=== PATIENT | male | born 1945 | race Caucasian/White ===

== ENCOUNTER → 2018-01-13 06:06 | Outpatient (CLI) | payer MEDICARE, SELFPAY ==
--- NOTE | 2018-01-13 06:15 | NM_ITS ---
CARDIOLITE SPECT MYOCARDIAL PERFUSION SCAN, REST AND STRESS: EXERCISE STRESS [facility] REVIEW QGS EF AND WALL MOTION EVALUATION: QPS - PERFUSION EVALUATION HISTORY: Chest pain, SOB, CAD, CABG, HTN, DM DOSE: 10.54 mCi technetium 99m mibi intravenously at rest followed by 32.3 mCi technetium 99m mibi following the intravenous ministration of 0.4 mg of Lexiscan. Resting blood pressure is 191/108. Stress blood pressure 199/122. FINDINGS: Ejection fraction is calculated to be 27%. Stress images reveal decreased activity in the apex and inferior wall with no significant change during rest images. 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 Clinical correlation is advised. This is a high risk abnormal stress test
--- NOTE | 2018-01-13 07:10 | HMH.ITSHM ---
OMEPRAZOLE GLIMEPIRIDE ATORVASTATIN CYCLOBENZAPR POTASSIUM CLOPIDOGREL BUSPIRONE CARVEDILOL ASA COQ10 MIRALAX METAMUCIL VITAMINS
== END ==
PROVIDERS: Family Provider Nurse Practitioner Family; PCP Nurse Practitioner Family; Visit Provider Physician Assistant
DX: R07.9 Chest pain, unspecified (principal); I25.10 Atherosclerotic heart disease of native coronary artery without angina pectoris; I10 Essential (primary) hypertension
CPT/HCPCS: 78452; 93017; A9502; J2785

== ENCOUNTER → 2019-02-10 09:31 | Outpatient (CLI) | payer MEDICARE, SELFPAY ==
--- NOTE | 2019-02-10 09:36 | US_ITS ---
US Arterial Lower Ext Rest Ordering Physician: Mindi Guerrier APRN Patient Age: 73 years: Male HISTORY: Current smoker. Hyperlipidemia CAD weak pulses both legs. Bilateral Claudication with Skin color changes and rest pain bilateral . Diabetic previous angioplasty smoker. Hypertension. TECHNIQUE: Segmental pressures obtained of both right and left leg. These are compared to brachial blood pressure to yield index at each level sampled including summary ZARIA. The data sheets from the procedure are available in PACS FINDINGS Rest study only performed today No prior studies available for comparison. Blood pressures reported are in millimeters mercury. ====== RIGHT LEG ZARIA = 1.05. Right TBI = 0.75 Brachial BP: 153 Thigh BP: BP 147 index 0.96 BP Calf BP: 148 with index 0.97 Ankle PT: BP 160 with index 1.05 Ankle DP : BP 150 with index 0.98 Digit =BP 115 with index 0.75 ===== LEFT LEG ZARIA = 1.01 Left TBI = 0.8 Brachial BPD: 148 Thigh BP: BP 156 with index-1.02. Calf BP: BP 158 index 1.03 Ankle PT:BP 155 with index 1.01 Ankle DP: BP 152 with index 0.99 Digit = BP 122 with index 0.8 Normal Pulses and waveforms: Bilateral IMPRESSION: Normal bilateral ZARIA. Normal pulses and waveforms to the ankles bilaterally ====== RIGHT LEG ZARIA = 1.05. Right TBI = 0.75 ===== LEFT LEG ZARIA = 1.01 Left TBI = 0.8
== END ==
PROVIDERS: PCP Nurse Practitioner Family; Visit Provider Nurse Practitioner Family
DX: I70.213 Atherosclerosis of native arteries of extremities with intermittent claudication, bilateral legs (principal)
CPT/HCPCS: 93923

== ENCOUNTER → 2019-02-16 10:48 | Outpatient (POV) | payer MEDICARE, SELFPAY | PROVIDERS: Visit Provider Otolaryngology | DX: Z00.00 Encounter for general adult medical examination without abnormal findings (principal) ==

== ENCOUNTER → 2019-05-24 10:09 | Outpatient (CLI) | payer MEDICARE, SELFPAY ==
--- NOTE | 2019-05-24 10:16 | CT_ITS ---
[facility] insert PROCEDURE: CT CHEST WO/W CON CLINCAL INDICATION: PULMONARY NODULE Pulmonary nodule evaluation, abnormal abdomen CT showing pulmonary nodules in the lung base. COMPARISON: CT ABDOMEN PELVIS WO CON from 04/25/2019 TECHNIQUE: IV Contrast: 75ml Optiray 350 Axial images obtained with sagittal and coronal reformats. All CT scans at the facility use one or more dose reduction, viz: automated exposure control, ma/kV adjustment per patient size (including targeted exams where dose is matched to indication, i.e. head), or iterative reconstruction technique. FINDINGS: In the right upper lobe there is a 6 mm noncalcified nodule centrally slightly medial. There is mild diffuse bronchial thickening. In the right upper lobe posteriorly there are patchy areas of ground-glass density suspicious for areas of pneumonia. There are 2 fissural nodules once again noted along the major fissure centrally the largest at 5 mm. These are not significantly changed. These may be due to small lymph nodes. There are mild fibrotic changes in the lung apices. There is some patchy ground-glass density in the left infrahilar region. There are changes of COPD There has been a prior CABG. Coronary artery calcifications are present. No mediastinal or hilar mass or adenopathy is evident. There is a small hiatal hernia. There are degenerative changes in the thoracic spine. IMPRESSION: 1. Patchy areas of ground-glass density in the perihilar region on both sides right more extensive than left consistent with areas of pneumonia. 2. Hyperinflation with attenuation of the peripheral pulmonary vessels and bronchial thickening consistent with COPD 3. No change in the 2 fissural nodules on the right. There is a 6 mm noncalcified nodule in the right apex. Recommend six-month CT follow-up to confirm stability and assure resolution of the perihilar ground-glass opacities Dictated by: Sky Brownlee MD 05/25/2019 14:38 Electronically signed by Sky Brownlee MD in [place] 05/25/2019 14:38
== END ==
PROVIDERS: PCP Nurse Practitioner; Visit Provider Nurse Practitioner
DX: R91.1 Solitary pulmonary nodule (principal)
CPT/HCPCS: 71270; Q9967

== ENCOUNTER → 2020-01-17 12:23 | Outpatient (CLI) | payer MEDICARE, SELFPAY ==
--- NOTE | 2020-01-17 12:51 | XR_ITS ---
PROCEDURE: XR MULTIPLE SPINE 2-3V CLINICAL INDICATION: PAIN Back pain COMPARISON: No exams were available for comparison FINDINGS: Thoracic spine: Multilevel degenerative changes with ankylosis. No acute fracture or dislocation is evident. No lytic or blastic change. Lumbar spine five views: Inter pedicular screws are present at L5-S1 with prior fusion and disc spacer device noted. There is normal alignment. Degenerative disc disease is present at L4-5 and L5-S1. No acute fracture or dislocation is evident. No lytic or blastic change. Surgical clips are present in the right upper quadrant and there are surgical tacks in the left upper quadrant. There are degenerative changes of the hips. IMPRESSION: Spondylosis of the thoracic lumbar spine with postsurgical change of the lumbar spine Dictated by: Sky Brownlee MD 01/17/2020 13:27 Sky Brownlee MD in [facility] 01/17/2020 13:27
[2020-01-17 13:03] LABS: Blood Urea Nitrogen 14 mg/dl (9-20); Estimated Glomerular Filt Rate 95 ml/min (>60); GFR (African American) 115 ML/MIN (>60)
--- NOTE | 2020-01-17 14:00 | CT_ITS ---
PROCEDURE: CT CHEST WO/W CON CLINCAL INDICATION: SOLITARY PULMONARY NODULE Follow-up pulmonary nodule COMPARISON: CT CHEST WO/W CON from 05/24/2019 TECHNIQUE: IV Contrast: 75ml Optiray 350 Axial images obtained with sagittal and coronal reformats. All CT scans at the facility use one or more dose reduction, viz: automated exposure control, ma/kV adjustment per patient size (including targeted exams where dose is matched to indication, i.e. head), or iterative reconstruction technique. FINDINGS: HEART AND MEDIASTINAL STRUCTURES: Prior CABG. No mediastinal or hilar mass or adenopathy. There is extensive coronary artery calcification. No evidence of aortic aneurysm or dissection or central pulmonary embolus. LUNGS AND PLEURAL SPACES: Changes of COPD. Stable 5 mm right apical nodule. Stable right-sided fissural nodules in the major fissure. The right upper lobe perihilar ground-glass attenuation has improved. There is some mild atelectatic change in the lung bases.. A 4 mm noncalcified nodules present in the left lower lobe unchanged. Left-sided perihilar nodular infiltrate as improved. No new nodules are evident BONY STRUCTURES: Unremarkable. Degenerative changes thoracic spine. UPPER ABDOMEN: Unremarkable. ADDITIONAL FINDINGS: No other significant abnormalities. IMPRESSION: 1. No change in the small pulmonary nodules as previously described. No new nodules evident. 2. Improvement in the perihilar ground-glass density on the right and the left-sided perihilar nodular infiltrate. 3. COPD with extensive coronary artery calcification Dictated by: Sky Brownlee MD 01/18/2020 11:44 Electronically signed by Sky Brownlee MD in [facility] 01/18/2020 11:44
== END ==
LOC: RAD 12:25
PROVIDERS: PCP Nurse Practitioner; Visit Provider Nurse Practitioner
DX: R91.1 Solitary pulmonary nodule (principal); M54.5 Low back pain; M54.6 Pain in thoracic spine
CPT/HCPCS: 36415; 71270; 72082; 72084; 82565; 84520; Q9967

== ENCOUNTER 2020-07-03 00:35 | Emergency (ER) | payer MEDICARE, SELFPAY ==
[2020-07-03 00:55] VITALS: BP 151/77; PULSE 63; RESP 18; TEMP 36.6; O2SAT 98; BMI 35.3
--- NOTE | 2020-07-03 01:05 | CT_ITS ---
PROCEDURE: CT ABDOMEN PELVIS WO CON CLINICAL INDICATION: left flank pain Left flank pain COMPARISON: CT CT ABDOMEN PELVIS WO CON from 04/25/2019 TECHNIQUE: Axial images obtained with sagittal and coronal reformats. All CT scans at the facility use one or more dose reduction, viz: automated exposure control, ma/kV adjustment per patient size (including targeted exams where dose is matched to indication, i.e. head), or iterative reconstruction technique. FINDINGS: LOWER THORAX: Atelectatic and/or fibrotic changes noted in the lung bases. Coronary artery calcifications are present. ABDOMEN & PELVIS: There has been a prior cholecystectomy. The spleen and adrenal glands and pancreas are unremarkable. There are punctate bilateral renal calculi. No hydronephrosis. No ureteral calculi. There is an exophytic I so density projecting off the posterior aspect of the left kidney measuring 1.8 cm consistent with a renal cyst not significantly changed. There are postsurgical changes of the anterior abdominal wall with multiple clips present. There is a mild amount of retained colonic feces. No evidence of appendicitis or diverticulitis. The prostate is enlarged at 5 cm causing some indentation upon the bladder wall inferiorly There postsurgical changes at the lumbosacral junction with inter pedicular screws. There is a mild amount of retained colonic feces IMPRESSION: 1. Nonobstructing bilateral renal calculi. 2. Mild amount of retained colonic feces Dictated by: Sky Brownlee MD 07/03/2020 11:35 Sky Brownlee MD in [place] 07/03/2020 11:35
[2020-07-03 01:11] LABS: Basophils # 0.1 K/mm3 (0-0.2); Basophils % 0.6 % (0.1-2.0); Eosinophils # 0.3 K/mm3 (0.0-0.4); Eosinophils % 2.6 % (0.1-12.0); Hematocrit 46.3 % (42.0-52.0); Hemoglobin 14.9 g/dL (14.1-18.0); Lymphocytes # 4.5 K/mm3 (0.7-4.5); Lymphocytes % 39.9 % (10-50); Mean Corpuscular HGB Conc 32.1 g/dL (31.8-35.4); Mean Corpuscular Hemoglobin 30.6 pg (27.0-31.2); Mean Corpuscular Volume 95.2 fl (80-94); Mean Platelet Volume 8.6 fl (7.4-10.4); Monocytes # 0.6 K/mm3 (0.1-1.0); Monocytes % 5.3 % (1.7-9.3); Neutrophils # 5.7 K/mm3 (1.8-7.8); Neutrophils % 51.6 % (37.0-80.0); Platelet Count 198 K/mm3 (142-424); Red Blood Count 4.87 M/mm3 (4.60-6.20); Red Cell Distribution Width 14.2 % (11.5-17.5); White Blood Count 11.1 K/mm3 (4.8-10.8)
[2020-07-03 01:22] LABS: Alanine Aminotransferase 15 U/L (12-78); Albumin Level 4.3 g/dl (3.5-5.0); Albumin/Globulin Ratio 1.5 (1.1-1.8); Alkaline Phosphatase 38 U/L (38-126); Anion Gap 10.9 mEq/L (5-15); Aspartate Amino Transferase 20 U/L (17-59); Bilirubin,Total 0.3 mg/dl (0.2-1.3); Blood Urea Nitrogen 20 mg/dl (9-20); Calcium 9.9 mg/dl (8.4-10.2); Carbon Dioxide 30 mmol/L (22.0-30.0); Chloride 106 mmol/L (98-107); Creatinine Clearance Estimated 75 mL/min (50-200); Estimated Glomerular Filt Rate 73 ml/min (>60); GFR (African American) 88 ML/MIN (>60); Globulin 2.8 g/dL (1.3-3.2); Glucose 114 mg/dl (74-100); Potassium 3.9 mmoL/L (3.5-5.1); Sodium 143 mmol/L (136-145); Total Protein,Serum 7.1 g/dl (6.3-8.2)
--- NOTE | 2020-07-03 02:22 | HMH.EDGENADL ---
ED Disposition Clinical Impression: Renal lithiasis Disposition: Home, Self-Care Condition on Discharge: Good Referrals: Shai Hayes MD [Primary Care Provider] - - Critical Care Critical Care Time: No Attestation: On 07/03/20, the high probability of a clinically significant, sudden or life threatening deterioration of the following system(s) required my full and direct attention, intervention and personal management. The time I documented below is in addition to time spent performing reported procedures but includes the following listed in this critical care notation. Medical Decision Making - Rodrigo Inquiry Pt receiving controlled substance: No Vital Signs: 07/03/20 00:55 Temperature 97.8 F Temperature Source Oral Pulse Rate [Right] 63 Respiratory Rate 18 Blood Pressure [Left Arm] 151/77 H Blood Pressure Mean [Left Arm] 101 Blood Pressure Source [Left Arm] Automatic Cuff Blood Pressure Position [Left Arm] Sitting 02 Sat by Pulse Oximetry 98 Oxygen Delivery Method Room Air - Lab Data Lab Results 07/03/20 00:55: WBC 11.1 H, RBC 4.87, Hgb 14.9, Hct 46.3, MCV 95.2 H, MCH 30.6, MCHC 32.1, RDW 14.2, Plt Count 198, MPV 8.6, Neut % (Auto) 51.6, Lymph % (Auto) 39.9, [place] % (Auto) 5.3, Eos % (Auto) 2.6, Baso % (Auto) 0.6, Neut # (Auto) 5.7, Lymph # (Auto) 4.5, [place] # (Auto) 0.6, Eos # (Auto) 0.3, Baso # (Auto) 0.1 07/03/20 00:55: Sodium 143, Potassium 3.9, Chloride 106, Carbon Dioxide 30, Anion Gap 10.9, BUN 20, Creatinine 1.00, Estimated Creat Clear 75, Estimated GFR 73, Est GFR ( Amer) 88, Glucose 114 H, Calcium 9.9, Total Bilirubin 0.3, AST 20, ALT 15, Alkaline Phosphatase 38, Total Protein 7.1, Albumin 4.3, Globulin 2.8, Albumin/Globulin Ratio 1.5 07/03/20 02:30: Urine Color Yellow, Urine Appearance Clear, Urine pH 5.5, Ur Specific [place] 1.025, Urine Protein Negative, Urine Glucose (UA) 1+, Urine Ketones Negative, Urine Blood Negative, Urine Nitrate Negative, Urine Bilirubin Negative, Urine Urobilinogen 0.2, Ur Leukocyte Esterase Negative, Urine WBC Occasional, Amorphous Sediment Trace, Urine Mucus Trace Result diagrams: 07/03/20 00:55 07/03/20 00:55 Orders (Tests/Meds): ED MEDICATIONS Generic Name Dose Route Start Last Admin Trade Name Freq PRN Reason Stop Dose Admin Sodium Chloride 1,000 mls @ 999 mls/hr 07/03/20 01:15 07/03/20 01:21 Sod Chlor 0.9% 1000ml Bag IV 07/03/20 02:15 999 mls/hr .Q1H1M KITTY Administration Discontinued Medications Generic Name Dose Route Start Last Admin Trade Name Freq PRN Reason Stop Dose Admin Ketorolac Tromethamine 15 mg 07/03/20 01:05 07/03/20 01:21 Ketorolac 30mg/Ml Vial IV 07/03/20 01:06 15 mg ONCE ONE Administration Ondansetron HCl 4 mg 07/03/20 01:05 07/03/20 01:21 Ondansetron 4mg/2ml Vial IV 07/03/20 01:06 4 mg ONCE ONE Administration ORDERS Category Date Time Status CT abdomen pelvis wo con Stat Cat Scan 07/03/20 01:05 Taken - CT Data CT Scan: Abdomen Time Received: 01:[address] Reviewed: Yes: I have reviewed the patient's CT results, I have viewed the radiologist's interpretation Preliminary Findings: Abnormal Findings Narrative: Multiple small renal stones bilaterally. No evidence of hydronephrosis - Reevaluation(s) Time: 02:15 Reevaluation #1: Pt symptoms significantly improved and ready for discharge pending UA. Medical Decision Narrative: 75-year-old male with a history of renal lithiasis who presents with left flank pain times several days that is intermittent and colicky in nature became more severe this evening. No red flag symptoms concerning for vascular pathology and with a history of renal lithiasis is consistent with previous events he will be evaluated with a CT noncontrast of the abdomen pelvis as well as urinalysis. Patient was given IV Toradol 15 mg and IV fluid bolus 1 L with IV Zofran 4 mg for nausea. Multiple bilateral punctate stones. Demonstrates no evidence of in
[2020-07-03 02:33] LABS: Microscopic, Urine URINE MICROSCOPIC (MICROSCOPIC)
[2020-07-03 02:34] LABS: Appearance,Urine CLEAR (Clear); Bilirubin,Urine Negative (Negative); Blood, Urine Negative (Negative); Color,Urine YELLOW (Yellow); Glucose,Urine (UA) 1+ (Negative); Ketones,Urine Negative (Negative); Leukocyte Esterase,Urine Negative (Negative); Nitrate,Urine Negative (Negative); PH,Urine 5.5 (5.0-8.5); Protein,Urine Negative (Negative); Specific Gravity, Urine 1.025 (1.005-1.030); Urobilinogen,Urine 0.2 EU/dl (0.2)
[2020-07-03 02:39] LABS: Amorphous Sediment,Urine Trace /lpf; Mucus,Urine Trace /lpf; WBC,Urine Occasional #/hpf (0-3)
[2020-07-03 02:54] VITALS: BP 167/77; PULSE 59; RESP 18; TEMP 36.6; O2SAT 98
== END 2020-07-03 02:56 | disposition home or self-care (01) ==
PROVIDERS: Emergency Provider Student in an Organized Health Care Education/Training Program; PCP Internal Medicine Adolescent Medicine
DX: N20.0 Calculus of kidney (principal); Z87.442 Personal history of urinary calculi; I25.10 Atherosclerotic heart disease of native coronary artery without angina pectoris; F33.1 Major depressive disorder, recurrent, moderate; E78.5 Hyperlipidemia, unspecified; K21.9 Gastro-esophageal reflux disease without esophagitis; E11.9 Type 2 diabetes mellitus without complications; Z88.0 Allergy status to penicillin; Z79.899 Other long term (current) drug therapy
CPT/HCPCS: 74176; 80053; 81001; 85025; 96365; 96375; 99283; J2405

== ENCOUNTER → 2020-11-04 11:44 | Outpatient (CLI) | payer MEDICARE, SELFPAY ==
--- NOTE | 2020-11-04 | XR_ITS ---
PROCEDURE: XR LUMBAR SPINE 2-3V CLINICAL INDICATION: LOW BACK PAIN COMPARISON: No exams were available for comparison FINDINGS: Normal alignment. No acute fracture or dislocation. There is mild degenerative disc disease at L4-5. Postsurgical changes are present L5-S1 with inter pedicular screws and connecting rods. Small anterior osteophytes at L3. There is degenerative changes in the lower thoracic spine and thoracolumbar junction. No lytic or blastic change IMPRESSION: Degenerative and postsurgical changes Dictated by: Sky Brownlee MD 11/04/2020 13:29 Sky Brownlee MD in [place] 11/04/2020 13:29
--- NOTE | 2020-11-04 | XR_ITS ---
PROCEDURE: XR HIP RT 2-3V W/PELVIS CLINICAL INDICATION: RIGHT HIP PAIN COMPARISON: No exams were available for comparison FINDINGS: Mild to moderate osteoarthritic changes are present involving both hips as seen on the AP view of the pelvis. No acute fracture or dislocation. No lytic or blastic change. IMPRESSION: [id number] osteoarthritis of the hips Dictated by: Sky Brownlee MD 11/04/2020 13:28 Sky Brownlee MD in [facility] 11/04/2020 13:28
== END ==
PROVIDERS: PCP Nurse Practitioner; Referring Provider Nurse Practitioner; Visit Provider Nurse Practitioner
DX: M54.5 Low back pain (principal); M25.551 Pain in right hip
CPT/HCPCS: 72100; 73502

== ENCOUNTER 2020-11-13 15:00 | Outpatient (RCR) | payer MEDICARE, SELFPAY | END 2020-12-14 13:30 | disposition home or self-care (01) | LOC: PT.CARL 15:00 | PROVIDERS: PCP Nurse Practitioner; Visit Provider Nurse Practitioner | DX: M25.551 Pain in right hip (principal) | CPT/HCPCS: 97110; 97140; 97163 ==

== ENCOUNTER 2020-11-14 16:10 | Emergency (ER) | payer MEDICARE, SELFPAY ==
[2020-11-14 16:13] VITALS: BP 157/86; PULSE 69; RESP 18; TEMP 37; O2SAT 97; BMI 30.2
--- NOTE | 2020-11-14 16:30 | HMH.EDBACK ---
ED Disposition Clinical Impression: Sciatica Qualifiers: Laterality: right Qualified Code(s): M54.31 - Sciatica, right side Disposition: Home, Self-Care Condition on Discharge: Good Instructions: DI for Low Back Pain, DI for Back Pain With Sciatica Additional Instructions: Please follow-up with your primary care provider and discuss the possible need for an MRI of your lower back to rule out sciatica/bulging disc in your back. Prescriptions: Hydrocod/Acet 5/325 mg [[place] 5/325mg tablet] 1 tab PO Q6HP PRN #15 tab PRN Reason: As Needed For Fever Or Pain Prescription Printed Referrals: Shai Hayes MD [Primary Care Provider] - - Critical Care Critical Care Time: No Attestation: On 11/14/20, the high probability of a clinically significant, sudden or life threatening deterioration of the following system(s) required my full and direct attention, intervention and personal management. The time I documented below is in addition to time spent performing reported procedures but includes the following listed in this critical care notation. Medical Decision Making - Rodrigo Inquiry Pt receiving controlled substance: Yes Rodrigo was queried for this patient: Yes Risks and benefits of using a controlled substance: were discussed with pt by me Vital Signs: 11/14/20 16:13 11/14/20 17:41 Temperature 98.6 F 98.5 F Temperature Source Oral Oral Pulse Rate 75 Pulse Rate [Left Radial] 69 Respiratory Rate 18 16 Blood Pressure 137/76 Blood Pressure [Right Arm] 157/86 H Blood Pressure Mean [Right Arm] 109 Blood Pressure Source Automatic Cuff Blood Pressure Source [Right Arm] Automatic Cuff Blood Pressure Position Supine Blood Pressure Position [Right Arm] Sitting 02 Sat by Pulse Oximetry 97 Oxygen Delivery Method Room Air Room Air - Lab Data Lab results reviewed: No: I reviewed the patient's lab results. Orders (Tests/Meds): ED MEDICATIONS Discontinued Medications Generic Name Dose Route Start Last Admin Trade Name Freq PRN Reason Stop Dose Admin Ketorolac Tromethamine 60 mg 11/14/20 16:44 11/14/20 17:09 Ketorolac 60mg/2ml Vial IM 11/14/20 16:45 60 mg ONCE ONE Administration - Reevaluation(s) Time: 17:28 (Patient symptoms improved with Toradol. He feels better. He is ready for discharge.) Medical Decision Narrative: Emergency department by a local physician web assistant who saw the patient earlier today. The patient is complaining of low back pain radiating to the posterior upper right thigh. He has had this pain for several weeks now. According to the patient, the physician's web assistant was worried about a blood clot which prompted her to send the patient to the emergency department for evaluation. On physical examination the patient has no signs of deep venous thrombosis. His well score is low. The patient has no calf tenderness. His exam is consistent with acute to subacute sciatica on the right side. I do not believe that the patient requires a imaging or blood work/laboratory work-up. The patient will be given Toradol for pain management in the emergency department. Advised him and his that he will require an outpatient MRI of the lumbar spine to be performed by his primary care provider and depending on the results of that the patient may have to follow-up with a neurosurgeon. The patient's physical exam did not suggest any ischemic disease. The patient will be discharged in stable condition with instructions to follow-up with his primary care physician. He will be prescribed 15 tablets of acetaminophen/hydrocodone. Back Pain HPI - General Chief Complaint: Back Pain/Injury Stated Complaint: Possible in Blood Clot L Upper leg Area Time Seen by Provider: 11/14/20 16:31 Mode of Arrival: Ambulatory Source of Information: Patient, Spouse Limitations: No Limitations - History of Present Illness Complaint: back pain Duration: constant Similar Symptoms Previou
[2020-11-14 17:41] VITALS: BP 137/76; PULSE 75; RESP 16; TEMP 36.9; O2SAT 97
== END 2020-11-14 17:41 | disposition home or self-care (01) ==
PROVIDERS: Emergency Provider Emergency Medicine; PCP Internal Medicine Adolescent Medicine
DX: M54.31 Sciatica, right side (principal); I25.10 Atherosclerotic heart disease of native coronary artery without angina pectoris; E11.9 Type 2 diabetes mellitus without complications; K21.9 Gastro-esophageal reflux disease without esophagitis; Z87.442 Personal history of urinary calculi; I10 Essential (primary) hypertension; Z86.711 Personal history of pulmonary embolism; F17.210 Nicotine dependence, cigarettes, uncomplicated
CPT/HCPCS: 96372; 99281

== ENCOUNTER → 2020-11-16 15:01 | Outpatient (CLI) | payer MEDICARE, SELFPAY ==
--- NOTE | 2020-11-16 15:12 | MR_ITS ---
PROCEDURE: MR HIP RT WO/W CON CLINICAL INDICATION: PAIN IN RIGHT HIP COMPARISON: No exams were available for comparison TECHNIQUE: Routine multiplanar multi echo sequences are performed without gadolinium enhancement. FINDINGS: Bone marrow signal intensity is within normal limits without evidence of marrow infiltrative process. No acute fractures. Minor joint L joint space loss is noted. The vastus, hamstrings, gluteus, and and adductor muscles demonstrate no focal abnormality. Non arthrographic images of the labrum demonstrate intact labrum. Early osteophyte formation is noted. The visualized pelvic structures are within normal limits. IMPRESSION: Early degenerative changes of the right hip joint. No acute abnormality. Dictated by: Padmaja Enrique 11/16/2020 17:33 Padmaja Enrique in [place] 11/16/2020 17:33
== END ==
PROVIDERS: PCP Internal Medicine Adolescent Medicine; Visit Provider Nurse Practitioner
DX: M25.551 Pain in right hip (principal)
CPT/HCPCS: 73723; A9576

== ENCOUNTER → 2020-12-01 11:36 | Outpatient (CLI) | payer MEDICARE, SELFPAY ==
[2020-12-01 14:38] LABS: Blood Urea Nitrogen 34 mg/dl (9-20)
[2020-12-01 14:39] LABS: Estimated Glomerular Filt Rate 82 ml/min (>60); GFR (African American) 100 ML/MIN (>60)
== END ==
PROVIDERS: Visit Provider Nurse Practitioner
DX: Z01.812 Encounter for preprocedural laboratory examination (principal)
CPT/HCPCS: 36415; 82565; 84520

== ENCOUNTER → 2020-12-04 09:09 | Outpatient (CLI) | payer MEDICARE, SELFPAY ==
--- NOTE | 2020-12-04 09:13 | MR_ITS ---
PROCEDURE: MR LUMBAR SPINE WO/W CON CLINICAL INDICATION: LOW BACK PAIN Lbp with rt hip pain. Rt leg pain, numbness, and tingling [id number]. Hx lumbar surgery in 2007. COMPARISON: MR [employer]/O MRI-L-SPINE W/O from 07/26/[address] ABDOMEN PELVIS WO CON from 07/03/2020 CR XR LUMBAR SPINE 2-3V from 11/04/2020 TECHNIQUE: Standard multiplanar multiecho sequences are performed without and with contrast. 3-D MIP and myelographic images are also rendered and reviewed FINDINGS: There is normal alignment. Spinal cord ends at the L1 level. L1-L2: Unremarkable. L2-L3: Minimal bulging disc laterally on both sides with mild facet and ligamentum hypertrophy with mild bilateral lateral recess and foraminal narrowing. L3-L4: Mild concentric bulging disc with moderate facet and ligamentum hypertrophy. The facet and ligamentum hypertrophy has progressed since the previous exam of 07/26/2015. There is moderate to severe bilateral lateral recess narrowing right greater than left with bilateral foraminal narrowing left greater than right. The L4-5: Concentric bulging disc with severe facet and ligamentum hypertrophy with bilateral lateral recess narrowing and moderate bilateral foraminal narrowing left greater than right. The bulging disc does abut the L5 nerve roots on both sides. The facet and ligamentum hypertrophy has progressed since the previous exam. Canal stenosis is present at this level at 10 mm. There is some minimal epidural enhancement centrally and in the right paracentral area suggesting mild epidural fibrosis abutting the right L5 nerve root. L5-S1: Postsurgical changes with inter pedicular screws with generous artifact. Disc spacer device present at this level. There does appear to be severe left-sided foraminal narrowing from facet and ligamentum hypertrophy with impingement upon the exiting left L5 nerve root. This may have progressed somewhat since the previous exam. There is some mild enhancement of the disc along superior and inferior aspect at this level. IMPRESSION: 1. L2-L3: Minimal bulging disc laterally on both sides with mild facet and ligamentum hypertrophy with mild bilateral lateral recess and foraminal narrowing. 2. L3-L4: Mild concentric bulging disc with moderate facet and ligamentum hypertrophy. The facet and ligamentum hypertrophy has progressed since the previous exam of 07/26/2015. There is moderate to severe bilateral lateral recess narrowing right greater than left with bilateral foraminal narrowing left greater than right. 3. L4-5: Concentric bulging disc with severe facet and ligamentum hypertrophy with bilateral lateral recess narrowing and moderate bilateral foraminal narrowing left greater than right. The bulging disc does abut the L5 nerve roots on both sides. The facet and ligamentum hypertrophy has progressed since the previous exam. Canal stenosis is present at this level at 10 mm. There is some minimal epidural enhancement centrally and in the right paracentral area suggesting mild epidural fibrosis abutting the right L5 nerve root. 4. L5-S1: Postsurgical changes with inter pedicular screws with generous artifact. Disc spacer device present at this level. There does appear to be severe left-sided foraminal narrowing from facet and ligamentum hypertrophy with impingement upon the exiting left L5 nerve root. This may have progressed somewhat since the previous exam. There is some mild enhancement of the disc along superior and inferior aspect at this level. 5. No extruded herniated disc. Dictated by: Sky Brownlee MD 12/06/2020 09:43 Sky Brownlee MD in [place] 12/06/2020 09:43
== END ==
PROVIDERS: PCP Internal Medicine Adolescent Medicine; Visit Provider Nurse Practitioner
DX: M54.5 Low back pain (principal)
CPT/HCPCS: 72158; 76376; A9576

== ENCOUNTER → 2021-02-12 12:33 | Outpatient (CLI) | payer MEDICARE, SELFPAY ==
--- NOTE | 2021-02-12 12:37 | XR_ITS ---
PROCEDURE: XR CHEST 2V CLINICAL HISTORY: CARDIOVASCULAR EXAMINATION Chest pain COMPARISON: CR CXR1 CHEST-PORTABLE from 08/09/[address] CHEST WO/W CON from 01/17/2020 FINDINGS: Prior CABG. COPD. Coronary artery calcification. No lobar consolidation or collapse. There is ankylosis of the thoracic spine. No evidence pneumoperitoneum. IMPRESSION: COPD. No acute finding. Dictated by: Sky Brownlee MD 02/12/2021 17:37 Sky Brownlee MD in [place] 02/12/2021 17:37
--- NOTE | 2021-02-12 12:39 | XR_ITS ---
PROCEDURE: XR ABDOMEN MIN 2V CLINICAL INDICATION: CONSTIPATION,UNSPECIFIED COMPARISON: No exams were available for comparison FINDINGS: Mildly distended small bowel loops are present with scattered air-fluid levels with only a little amount of large bowel gas. Small-bowel obstruction is considered. Ileus would be included in the differential diagnosis. There are scattered opacities in the abdomen which may be due to ingested medication 2 in the right upper quadrant and 1 in the right lower quadrant. Numerous surgical tacks are present and there clips in the right upper quadrant. There has been prior lumbar surgery. The right hemidiaphragm is incompletely imaged on the upright view. Therefore, 1 cannot completely exclude the possibility of a pneumoperitoneum. IMPRESSION: Scattered air-fluid levels with mildly distended small bowel. Small bowel obstruction or ileus is considered. Follow-up suggested. Dictated by: Sky Brownlee MD 02/12/2021 17:35 Sky Brownlee MD in [facility] 02/12/2021 17:35
== END ==
PROVIDERS: PCP Nurse Practitioner; Visit Provider Nurse Practitioner
DX: K59.00 Constipation, unspecified (principal)
CPT/HCPCS: 71046; 74019

== ENCOUNTER 2021-02-12 18:55 | Inpatient (IN) | payer MEDICARE, SELFPAY ==
[2021-02-12 19:08] VITALS: BP 144/92; PULSE 97; RESP 16; TEMP 36.8; O2SAT 96; BMI 29.7
--- NOTE | 2021-02-12 19:28 | CT_ITS ---
PROCEDURE INFORMATION: Exam: CT Abdomen And Pelvis Without Contrast Exam date and time: 02/12/2021 7:28 PM Age: 75 years old Clinical indication: Abdominal pain; Other: Upper quad; Prior surgery; Surgery date: 6+ months; Surgery type: Gb turp; Patient HX: Upper abdomen pain. Xrays today suggest possible bowel obstruction; Additional info: Upper abd pain TECHNIQUE: Imaging protocol: Computed tomography of the abdomen and pelvis without contrast. Total images: 304 Radiation optimization: All CT scans at this facility use at least one of these dose optimization techniques: automated exposure control; mA and/or kV adjustment per patient size (includes targeted exams where dose is matched to clinical indication); or iterative reconstruction. COMPARISON: CT ABDOMEN PELVIS WO CON 07/03/2020 1:18 AM FINDINGS: Lungs: Patchy scarring or atelectasis in the lung bases. Heart: Heart size normal. Severe coronary artery calcification in the RCA distribution. Liver: Normal contour. No mass lesions. No intrahepatic biliary ductal dilatation. Gallbladder and bile ducts: Prior cholecystectomy with expected mild postoperative dilatation of the common bile duct. This is unchanged. Pancreas: Mild pancreatic atrophy. There are few scattered punctate pancreatic calcifications suggesting chronic changes of prior pancreatitis. No evidence of acute pancreatitis. No ductal dilatation. Spleen: Normal. No splenomegaly. Adrenal glands: Normal. No adrenal mass. Kidneys and ureters: No acute abnormalities. No hydronephrosis or hydroureter. There are 2 small 1-2 mm nonobstructive left renal stones. No ureteral stones.There is a low-density circumscribed left renal cortical lesion suggesting renal cyst. No further imaging evaluation is required. Stomach and bowel: Prior fundoplication noted. Visualized distal esophagus otherwise unremarkable. The stomach is moderately distended with fluid but otherwise unremarkable. Moderate fluid distension of the duodenum, jejunum, and proximal ileum, consistent with small bowel obstruction, with the transition point identified in the left upper quadrant on series 3, images 38-48. No evidence of perforation or abscess. Moderate local mesenteric edema. The colon is contracted without gross abnormality. Appendix: The appendix is normal in caliber and demonstrates no evidence of appendicitis. Intraperitoneal space: Small volume reactive ascites in the pelvis. No free air. Vasculature: Moderate calcific atherosclerosis. Lymph nodes: No adenopathy. Urinary bladder: Unremarkable as visualized. Reproductive: Moderately enlarged prostate. Bones/joints: No acute osseous abnormalities. Prior lumbar fusion L5-S1 without gross hardware complication or change. Moderate central canal stenosis L4-L5. Soft tissues: Prior epigastric anterior abdominal wall hernia repair without gross complication or change. Small fatty left inguinal hernia with no associated bowel herniation or evidence of strangulation.. IMPRESSION: 1. There is evidence of high-grade small bowel obstruction with the transition point located in the left upper quadrant. No evidence of perforation or abscess. 2. Nonobstructive left renal stones. No ureteral stones or hydronephrosis. 3. Small volume reactive ascites in the pelvis. 4. Additional non-emergent findings detailed above. COMMENTS: Consistent with the [employer]'s Incidental Findings Committee white paper (J Am Eric Radiol 2018): Any incidental renal lesion less than 1 cm or classified as too small to characterize, or any incidental cystic renal lesion characterized as simple-appearing, is li
[2021-02-12 19:47] LABS: Chloride 98 mmol/L (98-107); Potassium 4.4 mmoL/L (3.5-5.1); Sodium 139 mmol/L (136-145)
[2021-02-12 19:49] LABS: Amylase 42 U/L (30-110)
[2021-02-12 19:50] LABS: Alanine Aminotransferase 21 U/L (12-78); Albumin Level 4.8 g/dl (3.5-5.0); Albumin/Globulin Ratio 1.5 (1.1-1.8); Alkaline Phosphatase 59 U/L (38-126); Anion Gap 18.4 mEq/L (5-15); Aspartate Amino Transferase 28 U/L (17-59); Bilirubin,Total 1.1 mg/dl (0.2-1.3); Blood Urea Nitrogen 47 mg/dl (9-20); Calcium 10.1 mg/dl (8.4-10.2); Carbon Dioxide 27 mmol/L (22.0-30.0); Creatinine Clearance Estimated 39 mL/min (50-200); Estimated Glomerular Filt Rate 35 ml/min (>60); GFR (African American) 42 ML/MIN (>60); Globulin 3.1 g/dL (1.3-3.2); Glucose 215 mg/dl (74-100); Lipase 42 U/L (23-300); Total Protein,Serum 7.9 g/dl (6.3-8.2)
[2021-02-12 19:51] LABS: Lactic Acid 1.7 mmol/L (0.7-2.1)
--- NOTE | 2021-02-12 20:21 | HMH.EDNVD ---
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 The time I documented below is in addition to time spent performing reported procedures but includes the following listed in this critical care notation. Medical Decision Making - Medical Records Medical records reviewed: Yes: I reviewed the patient's medical records. - Rodrigo Inquiry Pt receiving controlled substance: No Vital Signs: 02/12/21 19:08 Temperature 98.2 F Temperature Source Oral Pulse Rate [Right] 97 H Respiratory Rate 16 Blood Pressure [Right Arm] 144/92 H Blood Pressure Mean [Right Arm] 109 Blood Pressure Source [Right Arm] Automatic Cuff Blood Pressure Position [Right Arm] Supine 02 Sat by Pulse Oximetry 96 Oxygen Delivery Method Room Air - Lab Data Lab results reviewed: Yes: I reviewed the patient's lab results. Lab Results 02/12/21 19:27: WBC 14.0 H, RBC 5.30, Hgb 16.5, Hct 47.1, MCV 89.0, MCH 31.1, MCHC 34.9, RDW 13.9, Plt Count 246, MPV 8.8, Neut % (Auto) 80.1 H, Lymph % (Auto) 14.9, [place] % (Auto) 4.6, Eos % (Auto) 0.1, Baso % (Auto) 0.2, Neut # (Auto) 11.2 H, Lymph # (Auto) 2.1, [place] # (Auto) 0.7, Eos # (Auto) 0.0, Baso # (Auto) 0.0, ESR 14 02/12/21 19:27: Sodium 139, Potassium 4.4, Chloride 98, Carbon Dioxide 27, Anion Gap 18.4 H, BUN 47 H, Creatinine 1.90 H, Estimated Creat Clear 39, Estimated GFR 35 L, Est GFR ( Amer) 42 L, Glucose 215 H, Calcium 10.1, Total Bilirubin 1.1, AST 28, ALT 21, Alkaline Phosphatase 59, C-Reactive Protein 22.4 H, Total Protein 7.9, Albumin 4.8, Globulin 3.1, Albumin/Globulin Ratio 1.5, Amylase 42, Lipase 42, Procalcitonin 0.398 02/12/21 19:27: Lactate 1.7 Result diagrams: 02/12/21 19:27 02/12/21 19:27 Orders (Tests/Meds): ED MEDICATIONS Generic Name Dose Route Start Last Admin Trade Name Freq PRN Reason Stop Dose Admin Sodium Chloride 1,000 mls @ 999 mls/hr 02/12/21 19:30 02/12/21 19:34 Sod Chlor 0.9% 1000ml Bag IV 02/12/21 20:30 999 mls/hr .Q1H1M KITTY Administration Sodium Chloride 8 ml 02/12/21 19:28 Sodium Chloride 0.9% 10ml Vial IV 03/14/21 19:27 NEEDED PRN dilute pepcid Discontinued Medications Generic Name Dose Route Start Last Admin Trade Name Freq PRN Reason Stop Dose Admin Famotidine 20 mg 02/12/21 19:28 02/12/21 19:34 Famotidine 20mg/2ml Vial IV 02/12/21 19:29 20 mg ONCE ONE Administration Ketorolac Tromethamine 30 mg 02/12/21 19:28 02/12/21 19:34 Ketorolac 30mg/Ml Vial IV 02/12/21 19:29 30 mg ONCE ONE Administration Metoclopramide HCl 10 mg 02/12/21 19:28 02/12/21 19:34 Metoclopramide Hcl 10mg/2ml Vial IVP 02/12/21 19:29 10 mg ONCE ONE Administration Ondansetron HCl 4 mg 02/12/21 19:28 02/12/21 19:34 Ondansetron 4mg/2ml Vial IV 02/12/21 19:29 4 mg ONCE ONE Administration ORDERS Category Date Time Status Rapid PCR Covid and Flu A/B Stat Lab 02/12/21 21:49 Ordered Urinalysis and Microscopic Stat Lab 02/12/21 19:28 Ordered Blood Culture Stat Micro 02/12/21 19:27 Received - CT Data CT Scan: Abdomen, Pelvis Time Received: 22:[address] Reviewed: Yes: I have viewed the radiologist's interpretation Preliminary Findings: Abnormal (sbo) - Physician
[2021-02-12 20:25] LABS: Basophils % 0.2 % (0.1-2.0); Eosinophils % 0.1 % (0.1-12.0); Hematocrit 47.1 % (42.0-52.0); Hemoglobin 16.5 g/dL (14.1-18.0); Lymphocytes # 2.1 K/mm3 (0.7-4.5); Lymphocytes % 14.9 % (10-50); Mean Corpuscular HGB Conc 34.9 g/dL (31.8-35.4); Mean Corpuscular Hemoglobin 31.1 pg (27.0-31.2); Mean Platelet Volume 8.8 fl (7.4-10.4); Monocytes # 0.7 K/mm3 (0.1-1.0); Monocytes % 4.6 % (1.7-9.3); Neutrophils # 11.2 K/mm3 (1.8-7.8); Neutrophils % 80.1 % (37.0-80.0); Platelet Count 246 K/mm3 (142-424); Red Cell Distribution Width 13.9 % (11.5-17.5)
[2021-02-12 20:29] LABS: C-Reactive Protein 22.4 mg/L (0-4)
[2021-02-12 20:41] LABS: Procalcitonin 0.398 ng/mL (0.0-2.0)
[2021-02-12 21:13] LABS: Erythrocyte Sedimentation Rate 14 mm/hr (0-20)
[2021-02-12 21:57] LABS: Coronavirus 19, PCR Not Detected (NotDetected); Influenza A, PCR Not Detected (NotDetected); Influenza B, PCR Not Detected (NotDetected)
[2021-02-12 21:59] VITALS: BMI 29.0
--- NOTE | 2021-02-12 22:16 | ECG_ITS ---
APPROVED REPORT Exam: Resting ECG HR:75 bpm ECG Measurements Heart Rate 75 AXES HI 132 P 59 QRSd 92 QRS -36 QT 390 T 85 QTc 435 Conclusion Normal sinus rhythm Left axis deviation Incomplete right bundle branch block Abnormal ECG Electronically signed by : Alexandro Herrera, 02/13/2021 21:18:35
[2021-02-12 23:25] VITALS: BP 108/52; PULSE 86; RESP 16; TEMP 36.8; O2SAT 96
--- NOTE | 2021-02-12 23:31 | PC.NURSE ---
PT ARRIVED TO FLOOR VIA W/C FROM ED W/STAFF AT 2300
[2021-02-13] VITALS: BP 117/67; PULSE 90; RESP 18; TEMP 36.9; O2SAT 99
--- NOTE | 2021-02-13 03:37 | PC.NURSE ---
No acute changes noted since pt arrived to floor. He c/o discomfort to abdomen and headache. Morphine administered per oct. Pt is currently NPO for AM consult. VSS. Lungs are diminished. BS active. Abdomen is tender. Pt has not had BM. No other concerns. Will continue to monitor.
[2021-02-13 04:00] VITALS: BP 138/72; PULSE 88; RESP 18; TEMP 36.8; O2SAT 97
[2021-02-13 04:43] VITALS: BMI 29.2
[2021-02-13 06:00] LABS: POC Glucose,Bedside 117 (70-110)
--- NOTE | 2021-02-13 06:51 | PC.NURSE ---
DR BULLOCK NOTIFIED OF CONSULT
[2021-02-13 07:04] LABS: Basophils % 0.3 % (0.1-2.0); Eosinophils % 0.4 % (0.1-12.0); Hematocrit 42.4 % (42.0-52.0); Lymphocytes # 2.2 K/mm3 (0.7-4.5); Lymphocytes % 23.5 % (10-50); Mean Corpuscular HGB Conc 33.9 g/dL (31.8-35.4); Mean Corpuscular Hemoglobin 31.2 pg (27.0-31.2); Mean Corpuscular Volume 92.1 fl (80-94); Mean Platelet Volume 8.8 fl (7.4-10.4); Monocytes # 0.8 K/mm3 (0.1-1.0); Monocytes % 7.9 % (1.7-9.3); Neutrophils # 6.4 K/mm3 (1.8-7.8); Neutrophils % 67.8 % (37.0-80.0); Platelet Count 214 K/mm3 (142-424); Red Blood Count 4.61 M/mm3 (4.60-6.20); Red Cell Distribution Width 13.9 % (11.5-17.5); White Blood Count 9.4 K/mm3 (4.8-10.8)
[2021-02-13 07:06] LABS: Chloride 106 mmol/L (98-107); Potassium 4.1 mmoL/L (3.5-5.1); Sodium 141 mmol/L (136-145)
--- NOTE | 2021-02-13 07:07 | HMH.GSCON ---
*Admission Date: 02/13/21 *Reason for consult:: Bowel obstruction *History of present illness: Patient is a 75-year-old male from [place] with history of smoking/tobacco abuse, hypertension, diabetes mellitus, coronary disease with previous stenting, history of pulmonary embolism on Plavix who previously underwent laparoscopic cholecystectomy and has had apparent laparoscopic ventral hernia repair done in [place] sometime ago. He states that several days ago he developed some abdominal discomfort. He had pain in the left upper quadrant and right upper quadrant. He was unable to tolerate oral intake resulting in vomiting. He also describes several days of obstipation. He underwent outpatient CT scan which reportedly revealed findings of bowel obstruction. He therefore was asked to present to the emergency department. CT scan revealed findings consistent with partial high-grade obstruction with transition point in the left upper quadrant. He was admitted for inpatient management and surgical consultation this morning. Review of Systems - Review of Systems Review of systems:: pertinent systems reviewed and negative unless documented below - *Neurologic Denies confusion, Denies headache(s), Denies seizure-like activity [facility] History I have reviewed the patient's past medical history: Yes Medical History: Reports:: Atherosclerotic Heart Disease, Coronary Artery Disease, Depression, Diabetes Mellitus Type 2, Gastroesophageal Reflux Disease(GERD), Hyperlipidemia, Hypertension, Kidney Stones, Pulmonary Embolism Denies:: Diabetes Mellitus Type 1, Internal Pacemaker, Lung Disease, Seizures *Have you ever received a pneumonia vaccine?: No *Have you received a flu vaccine this season?: No Other Surgeries: Yes: Cardiac Catheterization, Cholecystectomy, Colonoscopy, Coronary Stent, Hernia Repair, Other. No: Pacemaker Amputation: Yes (pinky finger) Fractures: No - *Social History Smoking Status: Current every day smoker Tobacco Type: cigarettes # Packs/Day (cigarettes): 1 Alcohol Intake: former Substance Use Type: marijuana *Occupational Status:: retired Housing: house Household Members: spouse *Travel in the last 8 weeks: None - Psychiatric History Pschychiatric History:: Reports:: Depression Family Hx:: Bleeding Disorder, Cancer, Coronary Artery Disease, Diabetes, Hyperlipidemia, Hypertension, Alcoholism Meds Home Medications Medication Instructions Recorded Confirmed Type Buspirone HCl [Buspar 10mg 10 mg PO BID 02/19/19 02/12/21 History tablet] Glimepiride [Amaryl 2mg tablet] 2 mg PO DAILY 02/19/19 02/12/21 History Losartan Potassium [Cozaar] 50 mg PO DAILY 02/19/19 02/12/21 History carvediloL [Carvedilol 25mg Tab] 25 mg PO BID 02/26/19 02/12/21 History Albuterol Sulfate [Proventil-HFA 1 - 2 puffs IH Q4-6H PRN 07/03/20 02/12/21 History 90mcg/puff Inh] Fluticasone Propion/Salmeterol 1 puff IH DAILY 07/03/20 02/12/21 History [Fluticasone-Salmeterol 250-50] Pumpkin Seed Extract/Soy Germ [Azo 300 mg PO DAILY 07/03/20 02/12/21 History Bladder Control Capsule] Allergies Allergy/AdvReac Type Severity Reaction Status Date / Time erythromycin base Allergy Unknown S-DIFF. Verified 01/03/21 10:13 [From ERYTHROCIN] BREATHING Penicillins [PENICILLINS] Allergy Unknown I-RASH Verified 01/03/21 10:13 chocolate flavor Allergy Unknown Verified 01/03/21 10:13 allergy reaction corn Allergy Unknown Verified 01/03/21 10:13 allergy reaction Exam Vital signs and Labs for Last 24 Hours: Temp Pulse Resp BP Pulse Ox 98.2 F 88 18 138/72 97 02/13/21 04:00 02/13/21 04:00 02/13/21 04:00 02/13/21 04:00 02/13/21 04:00 Laboratory Results - last 24 hr 02/12/21 19:27: WBC 14.0 H, RBC 5.30, Hgb 16.5, Hct 47.1, MCV 89.0, MCH 31.1, MCHC 34.9, RDW 13.9, Plt Count 246, MPV 8.8, Neut % (Auto) 80.1 H, Lymph % (Auto) 14.9, Bee % (Auto) 4.6, Eos % (Auto) 0.1, Baso % (Auto) 0.2, Neut # (Auto) 11.
[2021-02-13 07:09] LABS: Anion Gap 15.1 mEq/L (5-15); Blood Urea Nitrogen 54 mg/dl (9-20); Calcium 9.1 mg/dl (8.4-10.2); Carbon Dioxide 24 mmol/L (22.0-30.0); Creatinine Clearance Estimated 38 mL/min (50-200); Estimated Glomerular Filt Rate 35 ml/min (>60); GFR (African American) 42 ML/MIN (>60); Glucose 133 mg/dl (74-100)
[2021-02-13 07:20] LABS: Hemoglobin 14.4 g/dL (14.1-18.0)
--- NOTE | 2021-02-13 07:27 | P.CONPHA_ITS ---
[facility] Pharmacy VTE Monitoring - Patient Demographics Admission date: 02/12/21 Report Date: 02/13/21 Time: 07:27 Allergies/Adverse Reactions: Patient Allergies erythromycin base [From ERYTHROCIN] Allergy (Unknown, Verified 01/03/21 10:13) S-DIFF. BREATHING Penicillins [PENICILLINS] Allergy (Unknown, Verified 01/03/21 10:13) I-RASH chocolate flavor Allergy (Verified 01/03/21 10:13) Unknown allergy reaction corn Allergy (Verified 01/03/21 10:13) Unknown allergy reaction Height: 1.65 m Weight: 79.605 kg Patient Problems: Current Active Problems Small bowel obstruction (Acute) NKECHI (acute kidney injury) (Acute) Diabetes mellitus (Acute) - VTE Risk Labs: VTE Related Lab Results Hgb 14.4 g/dL (14.1-18.0) D 02/13/21 06:31 Hct 42.4 % (42.0-52.0) 02/13/21 06:31 Plt Count 214 K/mm3 (142-424) 02/13/21 06:31 BUN 54 mg/dl (9-20) H 02/13/21 06:31 Creatinine 1.90 mg/dl (0.66-1.25) H 02/13/21 06:31 Estimated Creat Clear 38 mL/min (50-200) 02/13/21 06:31 VTE Risk Level: Moderate Risk - Prophylaxis VTE Prophylaxis Ordered?: Yes Types of VTE Prophylaxis: TEDS Knee High Location of Applied Device: Bilateral Lower Extremeties
[2021-02-13 07:59] VITALS: BP 126/82; PULSE 83; RESP 17; TEMP 36.6; O2SAT 92
[2021-02-13 08:00] VITALS: O2SAT 92
--- NOTE | 2021-02-13 09:17 | HMH.HP ---
*Admission Date: 02/12/21 <Laurie Quiros - 02/13/21 09:41> *Chief complaint: Abdominal pain with nausea and vomiting <Laurie Quiros - 02/13/21 09:41> *History of present illness: Mr Browne is a 75-year-old male from [place] with history of smoking/tobacco abuse, hypertension, diabetes mellitus, coronary disease with previous stenting, history of pulmonary embolism on Plavix who previously underwent laparoscopic cholecystectomy and has had apparent laparoscopic ventral hernia repair done in [place] sometime ago. He states that several days ago he developed some abdominal discomfort. He had pain in the left upper quadrant and right upper quadrant. He was unable to tolerate oral intake resulting in vomiting. He also describes several days of obstipation. He underwent outpatient CT scan which reportedly revealed findings of bowel obstruction. He therefore was asked to present to the emergency department. CT scan revealed findings consistent with partial high-grade obstruction with transition point in the left upper quadrant. He was admitted for inpatient management and surgical consultation this morning. The above per Dr. Corado This a.m. nursing is trying to place an NG tube. He has been nauseated through the night but has not vomited and remains n.p.o. He continues to have abdominal discomfort. He is passing no flatus. He does belch. He states he has had a diminished urinary output. His last stool was 02/09/2021. He denies melena, hematochezia and hematemesis. Patient states he had an office visit yesterday to schedule clearance for his upcoming right hip surgery. Due to his vomiting he had the CT scan. With the results he was directed to the emergency room for further evaluation. In the emergency room white blood cell count was found to be 14,000. He did have a bolus of fluids and was given Pepcid, Toradol, Reglan as well as Zofran. CT of the abdomen showed the following: IMPRESSION: 1. There is evidence of high-grade small bowel obstruction with the transition point located in the left upper quadrant. No evidence of perforation or abscess. 2. Nonobstructive left renal stones. No ureteral stones or hydronephrosis. 3. Small volume reactive ascites in the pelvis. 4. Additional non-emergent findings detailed above. He was thus admitted with surgical consult. <Laurie Quiros - 02/13/21 09:41> [facility] History Medical History: Reports:: Atherosclerotic Heart Disease, BPH, Coronary Artery Disease, Depression, Diabetes Mellitus Type 2, Gastroesophageal Reflux Disease(GERD), Hyperlipidemia, Hypertension, Kidney Stones, Pulmonary Embolism Denies:: Diabetes Mellitus Type 1, Internal Pacemaker, Lung Disease, Seizures <IshaanLaurie 02/13/21 09:41> *Have you ever received a pneumonia vaccine?: No <Laurie Quiros 02/13/21 09:41> *Have you received a flu vaccine this season?: No <Laurie Quiros 02/13/21 09:41> Other Medical History: Reports: Cataracts <Xi Quiroshy 02/13/21 09:41> Laterality Cases: Bilateral: Cataract, Total Knee Replacement <Xi Quiroshy 02/13/21 09:41> Other Surgeries: Yes: Cardiac Catheterization, Cholecystectomy, Colonoscopy, Coronary Stent, Hernia Repair, Open Heart Surgery, Other. No: Pacemaker <Laurie Quiros 02/13/21 09:41> Amputation: Yes (pinky finger) <Xi Quiroshy 02/13/21 09:41> Fractures: No <Xi Quiroshy 02/13/21 09:41> Comment: Several prostate surgeries <Laurie Quiros 02/13/21 09:41> - *Social History Smoking Status: Current every day smoker <Laurie Quiros 02/13/21 09:41> Tobacco Type: cigarettes <Xi Quiroshy 02/13/21 09:41> # Packs/Day (cigarettes): 1 <Laurie Quiros 02/13/21 09:41> Alcohol Intake: former <Laurie Quiros 02/13/21 09:41> Substance Use Type: marijuana <Laurie Quiros 02/13/21 09:41> *Occupational Status:: retired <Laurie Quiros 02/13/21 09:41> Housing: house <Laurie Quiros 02/13/21 09:41> Household Members: spouse <Bess Quiros
--- NOTE | 2021-02-13 11:10 | HMH.PHAINT ---
MEDICATION RECONCILIATION COMPLETED ON PATIENT USING EXTERNAL FILL HISTORY FROM PHARMACY AND PATIENT INTERVIEW. -ETIENNE HILL, AAROND
[2021-02-13 11:28] LABS: POC Glucose,Bedside 130 (70-110)
--- NOTE | 2021-02-13 13:44 | P.PN_ITS ---
Subjective Narrative: Patient states he feels miserable . NG place with 400 cc aspirate. Progress Note: A&P (1) Coronary artery disease Status: Chronic (2) History of pulmonary embolism Status: Chronic (3) Tobacco use disorder Status: Chronic (4) NKECHI (acute kidney injury) Status: Acute (5) Diabetes mellitus Status: Chronic (6) Small bowel obstruction Status: Acute Assessment and plan: Continue NG suction. If no improvement may need laparotomy. Exam Vital signs and Labs for Last 24 Hours: Temp Pulse Resp BP Pulse Ox 97.8 F 83 17 126/82 92 L 02/13/21 07:59 02/13/21 07:59 02/13/21 07:59 02/13/21 07:59 02/13/21 08:00 Laboratory Results - last 24 hr 02/12/21 19:27: WBC 14.0 H, RBC 5.30, Hgb 16.5, Hct 47.1, MCV 89.0, MCH 31.1, MCHC 34.9, RDW 13.9, Plt Count 246, MPV 8.8, Neut % (Auto) 80.1 H, Lymph % (Auto) 14.9, [place] % (Auto) 4.6, Eos % (Auto) 0.1, Baso % (Auto) 0.2, Neut # (Auto) 11.2 H, Lymph # (Auto) 2.1, [place] # (Auto) 0.7, Eos # (Auto) 0.0, Baso # (Auto) 0.0, ESR 14 02/12/21 19:27: Sodium 139, Potassium 4.4, Chloride 98, Carbon Dioxide 27, Anion Gap 18.4 H, BUN 47 H, Creatinine 1.90 H, Estimated Creat Clear 39, Estimated GFR 35 L, Est GFR ( Amer) 42 L, Glucose 215 H, Calcium 10.1, Total Bilirubin 1.1, AST 28, ALT 21, Alkaline Phosphatase 59, C-Reactive Protein 22.4 H, Total Protein 7.9, Albumin 4.8, Globulin 3.1, Albumin/Globulin Ratio 1.5, Amylase 42, Lipase 42, Procalcitonin 0.398 02/12/21 19:27: Lactate 1.7 02/12/21 21:50: SARS-CoV-2 (PCR) Not detected, Influenza A Untype (PCR) Not detected, Influenza Type B (PCR) Not detected 02/13/21 05:16: POC Glucose 117 H 02/13/21 06:31: WBC 9.4 D, RBC 4.61, Hgb 14.4 D, Hct 42.4, MCV 92.1, MCH 31.2, MCHC 33.9, RDW 13.9, Plt Count 214, MPV 8.8, Neut % (Auto) 67.8, Lymph % (Auto) 23.5, [place] % (Auto) 7.9, Eos % (Auto) 0.4, Baso % (Auto) 0.3, Neut # (Auto) 6.4, Lymph # (Auto) 2.2, [place] # (Auto) 0.8, Eos # (Auto) 0.0, Baso # (Auto) 0.0 02/13/21 06:31: Sodium 141, Potassium 4.1, Chloride 106, Carbon Dioxide 24, Anion Gap 15.1 H, BUN 54 H, Creatinine 1.90 H, Estimated Creat Clear 38, Estimated GFR 35 L, Est GFR ( Amer) 42 L, Glucose 133 H D, Calcium 9.1 02/13/21 11:19: POC Glucose 130 H I & O for Last 24 hours: Intake & Output 02/11/21 02/12/21 02/13/21 02/14/21 11:59 11:59 11:59 11:59 Intake Total 1000 / 1000 0 / 0 Output Total 100 / 100 Balance 900 / 900 0 / 0 Weight 175 lb 8 oz - *Routine Abdominal Exam Present: soft
[2021-02-13 15:40] VITALS: BP 149/79; PULSE 90; RESP 18; TEMP 36.5; O2SAT 95
[2021-02-13 16:36] LABS: POC Glucose,Bedside 110 (70-110)
--- NOTE | 2021-02-13 18:27 | PC.NURSE ---
Addendum entered by Marian Vega RN 02/13/21 18:53: UA sent to lab this shift Original Note: Pt tolerated this RN's attempt for NG tub placement well. NG tube is 59 cm @ the nare. NG tube is draining dark brown drainage-550mL's this shift. No other acute changes or complaints at this time.
[2021-02-13 18:43] LABS: Microscopic, Urine URINE MICROSCOPIC (MICROSCOPIC)
[2021-02-13 19:10] LABS: Appearance,Urine CLEAR (Clear); Bilirubin,Urine Negative (Negative); Blood, Urine Negative (Negative); Color,Urine Dark Yellow (Yellow); Glucose,Urine (UA) TRACE (Negative); Ketones,Urine TRACE (Negative); Leukocyte Esterase,Urine Negative (Negative); Nitrate,Urine Negative (Negative); PH,Urine 5.5 (5.0-8.5); Protein,Urine Negative (Negative); Specific Gravity, Urine >= 1.030 (1.005-1.030)
[2021-02-13 19:11] LABS: Bacteria,Urine 1+ /lpf; Mucus,Urine 1+ /lpf
[2021-02-13 20:36] LABS: POC Glucose,Bedside 100 (70-110)
[2021-02-13 20:47] VITALS: BP 158/82; PULSE 102; RESP 18; TEMP 36.8; O2SAT 96
[2021-02-14] VITALS (19 sets, daily range): BP systolic 142–166; BP diastolic 70–91; PULSE 80–111; RESP 14–20; TEMP 36.4–43; O2SAT 90–96; BMI 29.0
--- NOTE | 2021-02-14 03:00 | PC.NURSE ---
A&OX4. TOLERATING RA WELL. NG PRESENT TO R JACQUES, AT 59CM. LOW WALL SUCTION APPLIED. DARK BROWN DRAINAGE PRESENT. PT C/O ABD PAIN AND NA X1 THIS SHIFT. TX PER OCT. ON REASSESSMENT PT RESTING IN BED. NO OTHER C/O THUS FAR. PT HAS HAD NO BM THIS SHIFT. ATTEMPTED BUT WAS NOT SUCCESSFUL. PT ABD CONTINUES TO FEEL SLIGHTLY DISTENDED. VSS WILL CONTINUE TO MONITOR.
--- NOTE | 2021-02-14 06:00 | XR_ITS ---
PROCEDURE INFORMATION: Exam: XR Abdomen Exam date and time: 02/14/2021 6:00 AM Age: 75 years old Clinical indication: Condition or disease; Other: Bowel obstruction TECHNIQUE: Imaging protocol: XR of the abdomen. Views: 2 Views. Upright and supine views. COMPARISON: CT ABDOMEN PELVIS WO CON 02/12/2021 8:26 PM FINDINGS: Gastrointestinal tract: There is marked dilation of small bowel loops with only a small amount of air in the colon, consistent with mechanical small bowel obstruction. Intraperitoneal space: Normal. No free air. Organs: There has been a cholecystectomy. Bones/joints: There are postoperative changes of the spine. There are degenerative changes of the spine. Soft tissues: There has been a ventral hernia repair. IMPRESSION: Small bowel obstruction.
--- NOTE | 2021-02-14 07:31 | HMH.GSPN ---
Subjective Narrative: Patient states that he has felt somewhat better. Still not passing any flatus. Belching. Some nausea last night. NG drained total of 600 cc of brown thick liquid. He has felt the need to defecate without results. Progress Note: A&P (1) Coronary artery disease Status: Chronic (2) History of pulmonary embolism Status: Chronic (3) Tobacco use disorder Status: Chronic (4) NKECHI (acute kidney injury) Status: Acute (5) Diabetes mellitus Status: Chronic (6) Small bowel obstruction Status: Acute Assessment and Plan for All Diagnoses:: I will see what his x-rays revealed today. May need operative intervention. Exam Vital signs and Labs for Last 24 Hours: Temp Pulse Resp BP Pulse Ox 98.3 F 102 H 18 158/82 H 96 02/13/21 20:47 02/13/21 20:47 02/13/21 20:47 02/13/21 20:47 02/13/21 20:47 Laboratory Results - last 24 hr 02/13/21 11:19: POC Glucose 130 H 02/13/21 16:00: POC Glucose 110 02/13/21 18:00: Urine Color Dark yellow, Urine Appearance Clear, Urine pH 5.5, Ur Specific [place] >= 1.030, Urine Protein Negative, Urine Glucose (UA) Trace, Urine Ketones Trace, Urine Blood Negative, Urine Nitrate Negative, Urine Bilirubin Negative, Urine Urobilinogen 1.0, Ur Leukocyte Esterase Negative, Urine RBC 3-5, Urine WBC 3-5, Urine Bacteria 1+, Urine Mucus 1+ 02/13/21 20:27: POC Glucose 100 I & O for Last 24 hours: Intake & Output 02/11/21 02/12/21 02/13/21 02/14/21 11:59 11:59 11:59 11:59 Intake Total 1000 / 1000 0 / 0 Output Total 100 / 100 300 / 300 Balance 900 / 900 -300 / -300 Weight 175 lb 8 oz - *Routine Abdominal Exam Present: soft, normoactive bowel sounds
[2021-02-14 07:43] LABS: Anion Gap 15.2 mEq/L (5-15); Basophils % 0.4 % (0.1-2.0); Blood Urea Nitrogen 38 mg/dl (9-20); Calcium 9.2 mg/dl (8.4-10.2); Carbon Dioxide 29 mmol/L (22.0-30.0); Chloride 104 mmol/L (98-107); Creatinine Clearance Estimated 61 mL/min (50-200); Eosinophils % 0.5 % (0.1-12.0); Estimated Glomerular Filt Rate 59 ml/min (>60); GFR (African American) 72 ML/MIN (>60); Glucose 132 mg/dl (74-100); Hematocrit 42.5 % (42.0-52.0); Hemoglobin 14.5 g/dL (14.1-18.0); Lymphocytes # 1.4 K/mm3 (0.7-4.5); Lymphocytes % 20.1 % (10-50); Mean Corpuscular HGB Conc 34.2 g/dL (31.8-35.4); Mean Corpuscular Hemoglobin 31.1 pg (27.0-31.2); Mean Corpuscular Volume 91.1 fl (80-94); Mean Platelet Volume 8.4 fl (7.4-10.4); Monocytes # 0.7 K/mm3 (0.1-1.0); Monocytes % 10.1 % (1.7-9.3); Neutrophils # 4.8 K/mm3 (1.8-7.8); Platelet Count 171 K/mm3 (142-424); Potassium 4.2 mmoL/L (3.5-5.1); Red Blood Count 4.66 M/mm3 (4.60-6.20); Red Cell Distribution Width 13.9 % (11.5-17.5); Sodium 144 mmol/L (136-145); White Blood Count 6.9 K/mm3 (4.8-10.8)
--- NOTE | 2021-02-14 07:54 | HMH.ACPN2 ---
<Laurie Quiros - Last Filed: 02/14/21 07:54> Internal Medicine - PN: Subj *Date: 02/14/21 *Time: 07:54 Interval history: Patient continues to feel nauseated. He has not vomited. He continues with NG tube to low wall suction draining brownish liquid. He belches and has hiccups. He has not placed any flatus. His abdomen feels full and sore. He remains n.p.o. He is voiding QS. He denies chest pain and shortness of breath. Abdominal x-ray 02/14/2021 AM FINDINGS: Gastrointestinal tract: There is marked dilation of small bowel loops with only a small amount of air in the colon, consistent with mechanical small bowel obstruction. Intraperitoneal space: Normal. No free air. Organs: There has been a cholecystectomy. Bones/joints: There are postoperative changes of the spine. There are degenerative changes of the spine. Soft tissues: There has been a ventral hernia repair. IMPRESSION: Small bowel obstruction. Laboratory data shows improved renal function with a BUN of 38 and creatinine of 1.2 electrolytes are normal. Exam Vital signs and Labs for Last 24 Hours: Temp Pulse Resp BP Pulse Ox 98.3 F 102 H 18 158/82 H 96 02/13/21 20:47 02/13/21 20:47 02/13/21 20:47 02/13/21 20:47 02/13/21 20:47 Laboratory Results - last 24 hr 02/13/21 11:19: POC Glucose 130 H 02/13/21 16:00: POC Glucose 110 02/13/21 18:00: Urine Color Dark yellow, Urine Appearance Clear, Urine pH 5.5, Ur Specific [place] >= 1.030, Urine Protein Negative, Urine Glucose (UA) Trace, Urine Ketones Trace, Urine Blood Negative, Urine Nitrate Negative, Urine Bilirubin Negative, Urine Urobilinogen 1.0, Ur Leukocyte Esterase Negative, Urine RBC 3-5, Urine WBC 3-5, Urine Bacteria 1+, Urine Mucus 1+ 02/13/21 20:27: POC Glucose 100 02/14/21 06:33: Sodium 144, Potassium 4.2, Chloride 104, Carbon Dioxide 29 D, Anion Gap 15.2 H, BUN 38 H D, Creatinine 1.20 D, Estimated Creat Clear 61, Estimated GFR 59, Est GFR ( Amer) 72 D, Glucose 132 H, Calcium 9.2 I & O for Last 24 hours: Intake & Output 02/11/21 02/12/21 02/13/21 02/14/21 11:59 11:59 11:59 11:59 Intake Total 1000 / 1000 0 / 0 Output Total 100 / 100 300 / 300 Balance 900 / 900 -300 / -300 Weight 175 lb 8 oz - Constitutional no acute distress Comments: Awakened for assessment. - *Routine Respiratory Exam Present: CTA bilaterally (Anteriorly and posteriorly) - *Routine Cardiovascular Exam Present: RRR - *Routine Abdominal Exam Present: soft, normoactive bowel sounds (Patient continues to have active bowel sounds.), tenderness, distended - *Routine Extremities Exam Absent: edema, calf tenderness - *Routine Neurological Exam Present: alert, oriented X3 Assessment and Plan (1) Coronary artery disease Status: Chronic Category: Medical Code(s): I25.10 - Atherosclerotic heart disease of [place] coronary artery without angina pectoris (2) History of pulmonary embolism Status: Chronic Category: Medical Code(s): Z86.711 - Personal history of pulmonary embolism (3) Tobacco use disorder Status: Chronic Category: Medical Code(s): F17.200 - Nicotine dependence, unspecified, uncomplicated (4) NKECHI (acute kidney injury) Status: Acute Category: Medical Code(s): N17.9 - Acute kidney failure, unspecified (5) Diabetes mellitus Status: Chronic Qualifiers: Diabetes mellitus type: type 2 Diabetes mellitus rat exterminator insulin use: with custodial use Diabetes mellitus complication status: with other specified complication Qualified Code(s): E11.69 - Type 2 diabetes mellitus with other specified complication; Z79.4 - correction (current) use of insulin Category: Medical Code(s): E11.9 - Type 2 diabetes mellitus without complications (6) Small bowel obstruction Status: Acute Category: Medical Code(s): K56.609 - Unspecified intestinal obstruction, unspecified as to partial versus complete obstruction - Assessment and plan a
[2021-02-14 11:22] LABS: POC Glucose,Bedside 139 (70-110)
--- NOTE | 2021-02-14 11:48 | P.PN_ITS ---
Subjective Narrative: Patient has continued to feel nauseated with abdominal bloating and soreness . Persistent high NG output. Progress Note: A&P (1) Coronary artery disease Status: Chronic (2) History of pulmonary embolism Status: Chronic (3) Tobacco use disorder Status: Chronic (4) NKECHI (acute kidney injury) Status: Acute (5) Diabetes mellitus Status: Chronic (6) Small bowel obstruction Status: Acute Assessment and plan: I reviewed his x-rays. Consistent with persistent small bowel obstruction. Patient needs operative intervention. Given the previous mesh placement I will plan for initial diagnostic laparoscopy to evaluate and direct laparotomy incision. Plan will be for laparoscopy with laparotomy and possible bowel resection. Exam Vital signs and Labs for Last 24 Hours: Temp Pulse Resp BP Pulse Ox 98.7 F 99 H 20 149/80 H 94 L 02/14/21 08:00 02/14/21 08:00 02/14/21 08:00 02/14/21 08:00 02/14/21 08:00 Laboratory Results - last 24 hr 02/13/21 16:00: POC Glucose 110 02/13/21 18:00: Urine Color Dark yellow, Urine Appearance Clear, Urine pH 5.5, Ur Specific [place] >= 1.030, Urine Protein Negative, Urine Glucose (UA) Trace, Urine Ketones Trace, Urine Blood Negative, Urine Nitrate Negative, Urine Bilirubin Negative, Urine Urobilinogen 1.0, Ur Leukocyte Esterase Negative, Urine RBC 3-5, Urine WBC 3-5, Urine Bacteria 1+, Urine Mucus 1+ 02/13/21 20:27: POC Glucose 100 02/14/21 06:33: Sodium 144, Potassium 4.2, Chloride 104, Carbon Dioxide 29 D, Anion Gap 15.2 H, BUN 38 H D, Creatinine 1.20 D, Estimated Creat Clear 61, Estimated GFR 59, Est GFR ( Amer) 72 D, Glucose 132 H, Calcium 9.2 02/14/21 06:33: WBC 6.9 D, RBC 4.66, Hgb 14.5, Hct 42.5, MCV 91.1, MCH 31.1, MCHC 34.2, RDW 13.9, Plt Count 171, MPV 8.4, Neut % (Auto) 69.0, Lymph % (Auto) 20.1, [place] % (Auto) 10.1 H, Eos % (Auto) 0.5, Baso % (Auto) 0.4, Neut # (Auto) 4.8, Lymph # (Auto) 1.4, [place] # (Auto) 0.7, Eos # (Auto) 0.0, Baso # (Auto) 0.0 02/14/21 11:13: POC Glucose 139 H I & O for Last 24 hours: Intake & Output 02/11/21 02/12/21 02/13/21 02/14/21 11:59 11:59 11:59 11:59 Intake Total 1000 / 1000 0 / 0 Output Total 100 / 100 300 / 300 Balance 900 / 900 -300 / -300 Weight 175 lb 8 oz
--- NOTE | 2021-02-14 14:28 | P.OP_ITS ---
Date of procedure: 02/14/21 Pre-op Diagnosis:: Small bowel obstruction Post-op Diagnosis:: Same Procedure performed:: 1. Diagnostic laparoscopy 2. Exploratory laparotomy with release of complete bowel obstruction Surgeon:: Theo Corado MD ROAD MACHINERY INSPECTOR:: Ge Weathers Anesthesia: GETA Estimated blood loss (mL): 25 Operative findings:: Patient had a closed-loop complete obstruction of the small bowel secondary to omentum adherent to itself. Small bowel was hemorrhagic with no evidence of necrosis Operative note:: Consent was obtained patient was taken to the operating room. He was positioned in a supine position. General anesthesia was induced. Perla catheter was placed. Abdomen was prepped and draped in the standard surgical fashion. Small incision was made inferior to the umbilicus and while performing abdominal wall lift Veress needle was inserted. CO2 pneumoperitoneum was achieved to 15 mmHg. 5 mm optical trocar was inserted at the umbilicus. Intraperitoneal contents were visualized. He was found to have prosthetic mesh in the upper abdomen with protacks. There was omentum adherent to this. Additional 5 mm trocar was inserted in the left lateral abdomen. Metzenbaum dissection was carried out laparoscopically incising the omentum from the mesh. This did not appear to be in the site of obstruction. Surveillance was carried out and there was dilated small bowel mostly in the lower abdomen with some hemorrhagic appearing fluid. Given the evidence of complete bowel obstruction decision was made to perform laparotomy. Low midline laparotomy was performed. Dissection was carried down to subcutaneous tissues. Fascia was incised with electrocautery and peritoneum was entered. Exposure was achieved. The incision was extended somewhat above the umbilicus. Attempt was made to deliver and run the small bowel.. Ultimately there was noted to be a complete obstruction secondary to closed-loop internal hernia in the left upper abdomen. It appeared as though omentum had become adherent to itself creating a small internal hernia resulting in closed loop obstruction. This was incised with electrocautery freeing the small bowel. This loop of small bowel appeared somewhat hemorrhagic, edematous, mildly indurated. It was observed for some time for viability. It appeared as though it would likely be viable. Nasogastric tube was confirmed to be in the appropriate position. Some of the enteric contents were milked in a retrograde fashion to the stomach to allow for decompression of the small bowel. There appeared to be good hemostasis. Enteric contents were then returned to the abdominal cavity. Thorough irrigation was performed with warm saline. Fascia was closed with running #2 Novafil x2. Skin was closed with susannah. Clean dry sterile dressing was applied. Condition: stable Disposition: PACU Complications:: None immediately apparent
--- NOTE | 2021-02-14 14:36 | P.PN_ITS ---
[facility] Anesthesia Record Part I Intake, IV Amount: 1,800 Estimated blood loss (mL): 25 Urine output (mL): 150 Blood Pressure: 158/73 SaO2: 94 Pulse Rate: 85 Respiratory Rate: 16 Temperature: 97.6 F Patient is:: Drowsy, Stable Stable to PACU at:: 14:30
--- NOTE | 2021-02-14 14:36 | P.PN_ITS ---
[facility] Anesthesia Checklist - Patient Identification Patient Identification: Arm Band - Structural Data Admitted From: Inpatient Planned Operative Procedure/s: Diagnostic Laparoscopy, Exploratory Laparotomy Consent for Planned Operative Procedure(s) Verified: Yes Verified Documents: Surgical Consent, History and Physical - NPO Status Verified Time NPO: 00:00 - Additional verifications Anesthesia Reactions: No - Airway Assessment C-Spine Mobility Assessed: Yes (mp2) TMJ Mobility Assessed: Yes Dentition: Edentulous - Neurological Assessment Level of Consciousness: Awake, Alert - Anesthesia Plan Anesthesia Risk discussed: Yes Anesthesia Plan: Verified ASA Class: III Anesthesia Type: General [facility] History I have reviewed the patient's past medical history: Yes Medical History: Reports:: Atherosclerotic Heart Disease, BPH, Coronary Artery Disease, Depression, Diabetes Mellitus Type 2, Gastroesophageal Reflux Disease(GERD), Hyperlipidemia, Hypertension, Kidney Stones, Pulmonary Embolism Denies:: Diabetes Mellitus Type 1, Internal Pacemaker, Lung Disease, Seizures *Have you ever received a pneumonia vaccine?: No *Have you received a flu vaccine this season?: No Other Medical History: Reports: Cataracts Anesthesia experience/problems:: nac Laterality Cases: Bilateral: Cataract, Total Knee Replacement Other Surgeries: Yes: Cardiac Catheterization, Cholecystectomy, Colonoscopy, Coronary Stent, Hernia Repair, Open Heart Surgery, Other. No: Pacemaker Amputation: Yes (pinky finger) Fractures: No - *Social History Smoking Status: Current every day smoker Tobacco Type: cigarettes # Packs/Day (cigarettes): 1 Alcohol Intake: former Substance Use Type: marijuana *Occupational Status:: retired Housing: house Household Members: spouse *Travel in the last 8 weeks: None - Psychiatric History Pschychiatric History:: Reports:: Depression Family Hx:: Bleeding Disorder, Cancer, Coronary Artery Disease, Diabetes, Hy perlipidemia, Hypertension, Alcoholism
[2021-02-14 14:53] LABS: POC Glucose,Bedside 151 (70-110)
--- NOTE | 2021-02-14 15:21 | PC.NURSE ---
1437- FSBS- 151 notified moses [facility]kinson CRNA 1500- detailed report given to mellissa bocanegra rn, 150- Pt transported to second floor room 206. Left in stable cx, v/s stable, family at bedside. Left in care of mellissa bocanegra rn
--- NOTE | 2021-02-14 15:58 | SUR.OPER ---
late entry: 1324-incision made at this time for exploratory laparotomy, all counts correct and verified prior to incision, surgeon and team notified 1403-family updated at this time
[2021-02-14 16:20] LABS: Microscopic,Cath URINE MICROSCOPIC (MICROSCOPIC)
[2021-02-14 16:28] LABS: Appearance,Urine/Cath CLEAR (Clear); Blood, Urine/Cath Negative (Negative); Color,Urine/Cath YELLOW (Yellow); Glucose,Urine/Cath (UA) 2+ (Negative); Ketones,Urine/Cath 2+ (Negative); Leukocyte Esterase,Cath Negative (Negative); Nitrate,Cath Negative (Negative); PH,Urine/Cath 5.5 (5.0-8.5); Protein,Urine/Cath Negative (Negative); Specific Gravity, Urine/Cath 1.025 (1.005-1.030)
[2021-02-14 17:05] LABS: Bilirubin,Cath 1+ (Negative)
[2021-02-14 17:13] LABS: Renal Epithelial Cells,Ur/Cath Occasional #/lpf (0)
--- NOTE | 2021-02-14 18:04 | PC.NURSE ---
Pt has been pleasant and cooperative this shift. A&O X4. Pt is post-operative with a GENERATION TECHNICIAN pump in place. 1 MG Morphine used thus far. Pt is on room air with sats. >90%. Lungs CTA. No edema noted. Skin is C/D/I. F/C is patent and draining clear, yellow urine at bedside to gravity. Abdomen is large, round, soft, and non-tender. No N/V/D. No BM thus far this shift. NG tube to the RT nare noted to be taped @ 73 CM and hooked to continuous low-wall suction. 200 ML of brown discharge via NGT this shift. Pt ambulates independently to/from the bathroom and throughout the room. Pt sat up in the recliner for several hours today. 18 G peripheral IV in the RT AC is patent SL. 20 G peripheral IV in the RT wrist is patent and infusing NS @ 150 ML/HR. VSS. Call light within reach. Will continue to monitor.
--- NOTE | 2021-02-14 18:11 | PC.NURSE ---
Pt has been pleasant and cooperative this shift. A&O X4. Pt is post-operative with a GEOLOGICAL SAMPLE TESTER pump in place. 1 MG Morphine used thus far. Pt is on room air with sats. >90%. Lungs CTA. No edema noted. Mid-line abdominal dressing and LT abdominal dressing is C/D/I. F/C is patent and draining clear, yellow urine at bedside to gravity. Abdomen is large, round, soft, and non-tender. No N/V/D. No BM thus far this shift. NG tube to the RT nare noted to be taped @ 73 CM and hooked to continuous low-wall suction. 200 ML of brown discharge via NGT this shift. Pt ambulates independently to/from the bathroom and throughout the room. Pt sat up in the recliner for several hours today. 18 G peripheral IV in the RT AC is patent SL. 20 G peripheral IV in the RT wrist is patent and infusing NS @ 150 ML/HR. VSS. Call light within reach. Will continue to monitor.
[2021-02-14 21:38] LABS: POC Glucose,Bedside 136 (70-110)
[2021-02-14 21:59] LABS: POC Glucose,Bedside 143 (70-110)
[2021-02-15] VITALS (13 sets, daily range): BP systolic 135–165; BP diastolic 68–85; PULSE 87–115; RESP 17–20; TEMP 36.4–37.1; O2SAT 88–97; BMI 29.0
[2021-02-15 05:53] LABS: POC Glucose,Bedside 124 (70-110)
--- NOTE | 2021-02-15 06:42 | P.PN_ITS ---
Subjective Narrative: Fairly significant postoperative pain. He is utilizing his VECTOR CONTROL ASSISTANT. Progress Note: A&P (1) Coronary artery disease Status: Chronic (2) History of pulmonary embolism Status: Chronic (3) Tobacco use disorder Status: Chronic (4) NKECHI (acute kidney injury) Status: Acute (5) Diabetes mellitus Status: Chronic (6) Small bowel obstruction Status: Acute Assessment and Plan for All Diagnoses:: Overall, doing fairly well status post exploratory laparotomy for small bowel obstruction. Tachycardia likely secondary to combination of pain with possible postoperative hypovolemia. DC Eprla (continue strict I's and O's) Ambulate Exam Vital signs and Labs for Last 24 Hours: Temp Pulse Resp BP Pulse Ox 98.3 F 115 H 18 151/69 H 90 L 02/15/21 06:00 02/15/21 06:00 02/15/21 06:00 02/15/21 06:00 02/15/21 06:00 Laboratory Results - last 24 hr 02/14/21 06:33: Sodium 144, Potassium 4.2, Chloride 104, Carbon Dioxide 29 D, Anion Gap 15.2 H, BUN 38 H D, Creatinine 1.20 D, Estimated Creat Clear 61, Estimated GFR 59, Est GFR ( Amer) 72 D, Glucose 132 H, Calcium 9.2 02/14/21 06:33: WBC 6.9 D, RBC 4.66, Hgb 14.5, Hct 42.5, MCV 91.1, MCH 31.1, MCHC 34.2, RDW 13.9, Plt Count 171, MPV 8.4, Neut % (Auto) 69.0, Lymph % (Auto) 20.1, [place] % (Auto) 10.1 H, Eos % (Auto) 0.5, Baso % (Auto) 0.4, Neut # (Auto) 4.8, Lymph # (Auto) 1.4, [place] # (Auto) 0.7, Eos # (Auto) 0.0, Baso # (Auto) 0.0 02/14/21 11:13: POC Glucose 139 H 02/14/21 13:00: Urine Color Yellow, Urine Appearance Clear, Urine pH 5.5, Ur Specific [place] 1.025, Urine Protein Negative, Urine Glucose (UA) 2+, Urine Ketones 2+, Urine Blood Negative, Urine Nitrate Negative, Urine Bilirubin 1+ A, Urine Urobilinogen 1.0, Ur Leukocyte Esterase Negative, Urine RBC None, Urine WBC None, Ur Squamous Epith Cells None, Ur Renal Epithelial Cell Occasional, Urine Bacteria None 02/14/21 14:37: POC Glucose 151 H 02/14/21 15:43: POC Glucose 143 H 02/14/21 21:29: POC Glucose 136 H 02/15/21 05:45: POC Glucose 124 H I & O for Last 24 hours: Intake & Output 02/12/21 02/13/21 02/14/21 02/15/21 11:59 11:59 11:59 11:59 Intake Total 1000 / 1000 0 / 0 1800 / 1800 Output Total 100 / 100 300 / 300 1100 / 1100 Balance 900 / 900 -300 / -300 700 / 700 Weight 175 lb 8 oz 174 lb 2 oz Microbiology Reports for the Last 24 Hours: Microbiology 02/12/21 19:27 Blood Blood Culture - Preliminary NO GROWTH AFTER 48 HOURS 02/12/21 19:27 Blood Blood Culture - Preliminary NO GROWTH AFTER 48 HOURS - Constitutional no acute distress - *Routine Respiratory Exam Absent: respiratory distress - *Routine Cardiovascular Exam Present: tachycardia - *Routine Abdominal Exam Comments: Dressing intact. No spreading cellulitis.
--- NOTE | 2021-02-15 08:31 | HMH.ACPN2 ---
<Gregoria Wu - Last Filed: 02/15/21 08:31> Internal Medicine - PN: Subj *Date: 02/15/21 *Time: 08:31 Interval history: Patient states he was in a lot of pain this morning but it has gotten better. He is utilizing his GRINDER SET UP OPERATOR pump. Dr. Grady has seen the patient and wants to discontinue his Perla and have him ambulate today. He is taking ice chips with no problem. Exam Vital signs and Labs for Last 24 Hours: Temp Pulse Resp BP Pulse Ox 98.4 F 110 H 18 141/80 H 90 L 02/15/21 07:50 02/15/21 07:50 02/15/21 07:50 02/15/21 07:50 02/15/21 07:50 Laboratory Results - last 24 hr 02/14/21 11:13: POC Glucose 139 H 02/14/21 13:00: Urine Color Yellow, Urine Appearance Clear, Urine pH 5.5, Ur Specific [place] 1.025, Urine Protein Negative, Urine Glucose (UA) 2+, Urine Ketones 2+, Urine Blood Negative, Urine Nitrate Negative, Urine Bilirubin 1+ A, Urine Urobilinogen 1.0, Ur Leukocyte Esterase Negative, Urine RBC None, Urine WBC None, Ur Squamous Epith Cells None, Ur Renal Epithelial Cell Occasional, Urine Bacteria None 02/14/21 14:37: POC Glucose 151 H 02/14/21 15:43: POC Glucose 143 H 02/14/21 21:29: POC Glucose 136 H 02/15/21 05:45: POC Glucose 124 H I & O for Last 24 hours: Intake & Output 02/12/21 02/13/21 02/14/21 02/15/21 11:59 11:59 11:59 11:59 Intake Total 1000 / 1000 0 / 0 1800 / 1800 Output Total 100 / 100 300 / 300 1100 / 1100 Balance 900 / 900 -300 / -300 700 / 700 Weight 175 lb 8 oz 174 lb 2 oz Microbiology Reports for the Last 24 Hours: Microbiology 02/12/21 19:27 Blood Blood Culture - Preliminary NO GROWTH AFTER 48 HOURS 02/12/21 19:27 Blood Blood Culture - Preliminary NO GROWTH AFTER 48 HOURS - Constitutional no acute distress - *Routine Respiratory Exam Present: CTA bilaterally - *Routine Cardiovascular Exam Present: RRR - *Routine Abdominal Exam Present: soft, normoactive bowel sounds, tenderness (Around surgical sites) Comments: Dressings do have some serosanguineous drainage - *Routine Extremities Exam Absent: cyanosis, clubbing, edema - *Routine Skin Exam Present: warm. Absent: rash - *Routine Neurological Exam Present: alert, oriented X3 Assessment and Plan (1) Small bowel obstruction Status: Acute Category: Medical Code(s): K56.609 - Unspecified intestinal obstruction, unspecified as to partial versus complete obstruction (2) Coronary artery disease Status: Chronic Category: Medical Code(s): I25.10 - Atherosclerotic heart disease of [place] coronary artery without angina pectoris (3) History of pulmonary embolism Status: Chronic Category: Medical Code(s): Z86.711 - Personal history of pulmonary embolism (4) Tobacco use disorder Status: Chronic Category: Medical Code(s): F17.200 - Nicotine dependence, unspecified, uncomplicated (5) NKECHI (acute kidney injury) Status: Acute Category: Medical Code(s): N17.9 - Acute kidney failure, unspecified (6) Diabetes mellitus Status: Chronic Qualifiers: Diabetes mellitus type: type 2 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 Grady has seen the patient this morning and plans to take out his Perla and have him ambulate. Surgery will continue to follow. <Oliver Villalobos - Last Filed: 02/15/21 08:45> Internal Medicine - PN: Subj *Date: 02/15/21 *Time: 08:44 Exam Vital signs and Labs for Last 24 Hours: Temp Pulse Resp BP Pulse Ox 98.4 F 110 H 18 141/80 H 90 L 02/15/21 07:50 02/15/21 07:50 02/15/21 07:50 02/15
--- NOTE | 2021-02-15 10:09 | P.PN_ITS ---
[facility] Anesthesia Record Part II Discharge Time: 15:00 Destination: Medical Surgical Department PACU nurse assessment reviewed?: Yes Patient Condition:: Good Anesthesia Complications:: None Swallowing reflex intact?: Yes Cyanosis?: No Blood Pressure: 155/72 Pulse Rate: 87 Temperature: 97.6 F Mental Status: Alert & Oriented Pain level:: 0 Nausea and/or vomitting:: None Intake, IV Amount: 0
[2021-02-15 11:26] LABS: POC Glucose,Bedside 129 (70-110)
--- NOTE | 2021-02-15 16:22 | PC.NURSE ---
PT IS RESTING IN BED WITH FAMILY IN THE ROOM. ALERT AND ORIENTED X4. PT TOLERATED SITTING UP IN THE CHAIR MOST OF THE SHIFT AND AMBULATED IN THE BAPTISTE X2 THIS SHIFT. PT DID NOT WANT HIS SKUDS ON WHEN HE GOT BACK IN BED. PT HAS BEEN VERY FRUSTRATED WITH THE NG TUBE THIS SHIFT DUE TO IT LEAKING OFF AND ON. NG TUBE HAS BEEN FUNCTIONING PROPERLY. PT HAD A TOTAL OF 500 ML'S OF GREEN GASTRIC CONTENTS EMPTIED FROM CANISTER AT 1600. PT HAS MIDLINE ABDOMINAL INCISION WITH DRESSING. PT HAS VOIDED A SMALL AMOUNT SINCE CATHETER WAS DC'D. LUNG SOUNDS CLEAR. O2 SATURATION HAS MAINTAINED 91-93% ON ROOM AIR. 52 MG WAS CLEARED FROM BUSINESS ANALYTICS DIRECTOR PUMP WHEN NEW SYRINGE WAS REPLACED THIS AFTERNOON. PT HAS BEEN TOLERATING ICE CHIPS. NO BOWEL MOVEMENT THIS SHIFT. PT STATES HE HAS NOT BEEN PASSING FLATUS. WILL CONTINUE TO MONITOR.
[2021-02-15 17:20] LABS: POC Glucose,Bedside 128 (70-110)
[2021-02-15 22:57] LABS: POC Glucose,Bedside 119 (70-110)
[2021-02-16] VITALS (12 sets, daily range): BP systolic 96–175; BP diastolic 61–92; PULSE 74–168; RESP 16–20; TEMP 36.4–37; O2SAT 91–97; BMI 29.3
--- NOTE | 2021-02-16 04:45 | PC.NURSE ---
Patient is A&Ox4. Patient states that he just feels rough . His bowel sounds are active in all quadrants and has reported some discomfort around the incision site. dressing is intact, clean and dry. Patient lung sounds have some expiratory rhonchi noted. Patient attempted to have a BM and was unsuccessful. Patient has access to STRAP MAKING MACHINE OPERATOR pump with button in reach, call light within reach and ice chips at bedside per MD order. Patient has tolerated ice chips throughout the night very well. No reports of N/V. Will continue to monitor.
[2021-02-16 06:09] LABS: POC Glucose,Bedside 118 (70-110)
[2021-02-16 06:31] LABS: Basophils % 0.3 % (0.1-2.0); Eosinophils # 0.2 K/mm3 (0.0-0.4); Eosinophils % 1.9 % (0.1-12.0); Hematocrit 35.4 % (42.0-52.0); Hemoglobin 12.1 g/dL (14.1-18.0); Lymphocytes # 1.5 K/mm3 (0.7-4.5); Lymphocytes % 13.6 % (10-50); Mean Corpuscular HGB Conc 34.1 g/dL (31.8-35.4); Mean Corpuscular Hemoglobin 31.5 pg (27.0-31.2); Mean Corpuscular Volume 92.2 fl (80-94); Mean Platelet Volume 8.8 fl (7.4-10.4); Monocytes # 0.6 K/mm3 (0.1-1.0); Monocytes % 5.6 % (1.7-9.3); Neutrophils # 8.8 K/mm3 (1.8-7.8); Neutrophils % 78.6 % (37.0-80.0); Platelet Count 160 K/mm3 (142-424); Red Blood Count 3.84 M/mm3 (4.60-6.20); White Blood Count 11.2 K/mm3 (4.8-10.8)
[2021-02-16 07:00] LABS: Anion Gap 10.3 mEq/L (5-15); Blood Urea Nitrogen 18 mg/dl (9-20); Carbon Dioxide 24 mmol/L (22.0-30.0); Chloride 106 mmol/L (98-107); Creatinine Clearance Estimated 73 mL/min (50-200); Estimated Glomerular Filt Rate 82 ml/min (>60); GFR (African American) 100 ML/MIN (>60); Glucose 112 mg/dl (74-100); Potassium 3.3 mmoL/L (3.5-5.1); Sodium 137 mmol/L (136-145)
--- NOTE | 2021-02-16 07:24 | PC.NURSE ---
RAND TACKER pump cleared. 19 mg at end of shift
--- NOTE | 2021-02-16 08:11 | HMH.GSPN ---
Subjective Patient reports: no flatus Narrative: NG has leaked on bed several times. Progress Note: A&P (1) Small bowel obstruction Status: Acute (2) Coronary artery disease Status: Chronic (3) History of pulmonary embolism Status: Chronic (4) Tobacco use disorder Status: Chronic (5) NKECHI (acute kidney injury) Status: Acute (6) Diabetes mellitus Status: Chronic Assessment and Plan for All Diagnoses:: Try NG to straight drain. May need to DC NG later. Exam Vital signs and Labs for Last 24 Hours: Temp Pulse Resp BP Pulse Ox 98.0 F 92 H 16 159/92 H 94 L 02/16/21 06:00 02/16/21 06:00 02/16/21 06:00 02/16/21 06:00 02/16/21 06:00 Laboratory Results - last 24 hr 02/15/21 11:17: POC Glucose 129 H 02/15/21 17:08: POC Glucose 128 H 02/15/21 20:06: POC Glucose 119 H 02/16/21 05:57: POC Glucose 118 H 02/16/21 05:58: WBC 11.2 H D, RBC 3.84 L, Hgb 12.1 L, Hct 35.4 L, MCV 92.2, MCH 31.5 H, MCHC 34.1, RDW 14.0, Plt Count 160, MPV 8.8, Neut % (Auto) 78.6, Lymph % (Auto) 13.6, [place] % (Auto) 5.6, Eos % (Auto) 1.9, Baso % (Auto) 0.3, Neut # (Auto) 8.8 H, Lymph # (Auto) 1.5, [place] # (Auto) 0.6, Eos # (Auto) 0.2, Baso # (Auto) 0.0 02/16/21 05:58: Sodium 137, Potassium 3.3 L D, Chloride 106, Carbon Dioxide 24, Anion Gap 10.3, BUN 18 D, Creatinine 0.90 D, Estimated Creat Clear 73, Estimated GFR 82, Est GFR ( Amer) 100 D, Glucose 112 H, Calcium 8.0 L D I & O for Last 24 hours: Intake & Output 02/13/21 02/14/21 02/15/21 02/16/21 11:59 11:59 11:59 11:59 Intake Total 1000 / 1000 0 / 0 1800 / 1800 3900 / 3900 Output Total 100 / 100 300 / 300 1400 / 1400 1100 / 1100 Balance 900 / 900 -300 / -300 400 / 400 2800 / 2800 Weight 175 lb 8 oz 174 lb 2 oz 176 lb 5.564 oz - *Routine Abdominal Exam Present: soft
--- NOTE | 2021-02-16 08:25 | HMH.ACPN2 ---
<Gregoria Wu - Last Filed: 02/16/21 08:25> Internal Medicine - PN: Subj *Date: 02/16/21 *Time: 08:25 Interval history: Patient is frustrated this morning because his NG has leaked on his bed several times. He states if somebody doesn't take it out he is going to pull it out. His abdominal pain has improved and he is up moving around his room. Dr. Corado has seen the patient and plans to try the NG to straight drain and possibly discontinue it later. Exam Vital signs and Labs for Last 24 Hours: Temp Pulse Resp BP Pulse Ox 98.5 F 161 H 16 161/80 H 92 L 02/16/21 08:00 02/16/21 08:00 02/16/21 08:00 02/16/21 08:00 02/16/21 08:00 Laboratory Results - last 24 hr 02/15/21 11:17: POC Glucose 129 H 02/15/21 17:08: POC Glucose 128 H 02/15/21 20:06: POC Glucose 119 H 02/16/21 05:57: POC Glucose 118 H 02/16/21 05:58: WBC 11.2 H D, RBC 3.84 L, Hgb 12.1 L, Hct 35.4 L, MCV 92.2, MCH 31.5 H, MCHC 34.1, RDW 14.0, Plt Count 160, MPV 8.8, Neut % (Auto) 78.6, Lymph % (Auto) 13.6, [place] % (Auto) 5.6, Eos % (Auto) 1.9, Baso % (Auto) 0.3, Neut # (Auto) 8.8 H, Lymph # (Auto) 1.5, [place] # (Auto) 0.6, Eos # (Auto) 0.2, Baso # (Auto) 0.0 02/16/21 05:58: Sodium 137, Potassium 3.3 L D, Chloride 106, Carbon Dioxide 24, Anion Gap 10.3, BUN 18 D, Creatinine 0.90 D, Estimated Creat Clear 73, Estimated GFR 82, Est GFR ( Amer) 100 D, Glucose 112 H, Calcium 8.0 L D I & O for Last 24 hours: Intake & Output 02/13/21 02/14/21 02/15/21 02/16/21 11:59 11:59 11:59 11:59 Intake Total 1000 / 1000 0 / 0 1800 / 1800 3900 / 3900 Output Total 100 / 100 300 / 300 1400 / 1400 1100 / 1100 Balance 900 / 900 -300 / -300 400 / 400 2800 / 2800 Weight 175 lb 8 oz 174 lb 2 oz 176 lb 5.564 oz - Constitutional no acute distress - *Routine HEENT Exam Comments: NG in place - *Routine Respiratory Exam Present: CTA bilaterally - *Routine Cardiovascular Exam Present: RRR - *Routine Abdominal Exam Present: soft, normoactive bowel sounds, tenderness (around surgical sites, some drainage on the dressings) - *Routine Extremities Exam Absent: cyanosis, clubbing, edema - *Routine Skin Exam Present: warm. Absent: rash - *Routine Neurological Exam Present: alert, oriented X3 Assessment and Plan (1) Small bowel obstruction Status: Acute Category: Medical Code(s): K56.609 - Unspecified intestinal obstruction, unspecified as to partial versus complete obstruction (2) Coronary artery disease Status: Chronic Category: Medical Code(s): I25.10 - Atherosclerotic heart disease of [place] coronary artery without angina pectoris (3) History of pulmonary embolism Status: Chronic Category: Medical Code(s): Z86.711 - Personal history of pulmonary embolism (4) Tobacco use disorder Status: Chronic Category: Medical Code(s): F17.200 - Nicotine dependence, unspecified, uncomplicated (5) NKECHI (acute kidney injury) Status: Acute Category: Medical Code(s): N17.9 - Acute kidney failure, unspecified (6) Diabetes mellitus Status: Chronic Qualifiers: Diabetes mellitus type: type 2 Diabetes mellitus long term care social worker insulin use: with mcfp use Diabetes mellitus complication status: with other specified complication Qualified Code(s): E11.69 - Type 2 diabetes mellitus with other specified complication; Z79.4 - prison (current) use of insulin Category: Medical Code(s): E11.9 - Type 2 diabetes mellitus without complications - Assessment and plan all Dx Assessment and Plan for all problems:: Dr. Corado may discontinue his NG tube later today. Surgery to continue to follow. Potassium is slightly low today. Will discuss with Dr. Villalobos whether he would like to change his IV fluids and add potassium or have them crush a potassium pill and give it per NG. <Oliver Villalobos - Last Filed: 02/16/21 09:23> Internal Medicine - PN: Subj *Date: 02/16/21 *Time: 09:22 Exam Vital signs and Labs for Last 24 Hour
[2021-02-16 11:37] LABS: POC Glucose,Bedside 134 (70-110)
--- NOTE | 2021-02-16 12:32 | HMH.GSPN ---
Subjective Narrative: Tolerated NG to straight drain with almost no output. No residual. Has passed some gas. Progress Note: A&P (1) Small bowel obstruction Status: Acute (2) Coronary artery disease Status: Chronic (3) History of pulmonary embolism Status: Chronic (4) Tobacco use disorder Status: Chronic (5) NKECHI (acute kidney injury) Status: Acute (6) Diabetes mellitus Status: Chronic (7) Hypokalemia Status: Acute Assessment and Plan for All Diagnoses:: DC NG tube. Continue NPO except ice chips for now. Exam Vital signs and Labs for Last 24 Hours: Temp Pulse Resp BP Pulse Ox 97.5 F L 168 H 17 129/82 95 02/16/21 11:41 02/16/21 11:41 02/16/21 11:41 02/16/21 11:41 02/16/21 11:41 Laboratory Results - last 24 hr 02/15/21 17:08: POC Glucose 128 H 02/15/21 20:06: POC Glucose 119 H 02/16/21 05:57: POC Glucose 118 H 02/16/21 05:58: WBC 11.2 H D, RBC 3.84 L, Hgb 12.1 L, Hct 35.4 L, MCV 92.2, MCH 31.5 H, MCHC 34.1, RDW 14.0, Plt Count 160, MPV 8.8, Neut % (Auto) 78.6, Lymph % (Auto) 13.6, [place] % (Auto) 5.6, Eos % (Auto) 1.9, Baso % (Auto) 0.3, Neut # (Auto) 8.8 H, Lymph # (Auto) 1.5, [place] # (Auto) 0.6, Eos # (Auto) 0.2, Baso # (Auto) 0.0 02/16/21 05:58: Sodium 137, Potassium 3.3 L D, Chloride 106, Carbon Dioxide 24, Anion Gap 10.3, BUN 18 D, Creatinine 0.90 D, Estimated Creat Clear 73, Estimated GFR 82, Est GFR ( Amer) 100 D, Glucose 112 H, Calcium 8.0 L D 02/16/21 11:30: POC Glucose 134 H I & O for Last 24 hours: Intake & Output 02/14/21 02/15/21 02/16/21 02/17/21 11:59 11:59 11:59 11:59 Intake Total 0 / 0 1800 / 1800 3900 / 3900 Output Total 300 / 300 1400 / 1400 1100 / 1100 Balance -300 / -300 400 / 400 2800 / 2800 Weight 174 lb 2 oz 176 lb 5.564 oz
--- NOTE | 2021-02-16 14:59 | DIET.NUTRFU ---
Addendum entered by Rhonda Paz 02/19/21 13:20: Pt states he is continuing to feel better, does c/o of intermittent gastric reflux and mild nausea, though he does not relate these symptoms to eating. Diet advanced from clears to full liquids yesterday and he has tolerated well. He is ready for solid food and frustrated that he still has not had a BM. Pt educated on importance slow advancement diet as bowel function returns, encouraged to continue slow advancement. Original Note: Pt feeling better today, remains NPO. He and have been provided with diet edu/counseling for healing from [facility] and encouraged to reach out with any questions/concerns.
--- NOTE | 2021-02-16 16:28 | PC.NURSE ---
Addendum entered by Marian Vega RN 02/16/21 18:08: DIETITIAN THERAPEUTIC pump cleared this shift-23.5 Original Note: Pt has been pleasant this shift since removal of NG tube. 200mL of dark green, cloudy drainage was left in catheter bag from NG tube. Pt's requested nicotine patch for pt, shortly after applying patch pt took it off d/t itching at the site. Pt's arm was not red or inflamed. This RN washed arm off w/ soap and water to lessen irritation, pt has had no further complaints. Pt has been tachycardic this shift-HR has been >160 bpm. After first dose of carvedilol, pt's HR has decreased to 129. Pt has ambulated in the driscoll several times this shift w/ steady gait and balance. No other acute changes or complaints at this time. Will continue to monitor.
[2021-02-16 17:03] LABS: POC Glucose,Bedside 204 (70-110)
[2021-02-17] VITALS (13 sets, daily range): BP systolic 129–165; BP diastolic 61–82; PULSE 63–89; RESP 17–20; TEMP 36.6–37.2; O2SAT 96–98; BMI 29.1
[2021-02-17 01:39] LABS: POC Glucose,Bedside 180 (70-110)
[2021-02-17 05:52] LABS: POC Glucose,Bedside 162 (70-110)
[2021-02-17 07:04] LABS: Basophils # 0.1 K/mm3 (0-0.2); Basophils % 0.6 % (0.1-2.0); Eosinophils # 0.2 K/mm3 (0.0-0.4); Eosinophils % 2.2 % (0.1-12.0); Hematocrit 33.2 % (42.0-52.0); Hemoglobin 11.1 g/dL (14.1-18.0); Lymphocytes % 19.7 % (10-50); Mean Corpuscular HGB Conc 33.3 g/dL (31.8-35.4); Mean Corpuscular Hemoglobin 31.1 pg (27.0-31.2); Mean Corpuscular Volume 93.2 fl (80-94); Mean Platelet Volume 8.8 fl (7.4-10.4); Monocytes # 0.5 K/mm3 (0.1-1.0); Monocytes % 5.4 % (1.7-9.3); Neutrophils # 7.2 K/mm3 (1.8-7.8); Neutrophils % 72.1 % (37.0-80.0); Platelet Count 181 K/mm3 (142-424); Red Blood Count 3.56 M/mm3 (4.60-6.20); Red Cell Distribution Width 14.3 % (11.5-17.5)
[2021-02-17 07:08] LABS: Anion Gap 9.3 mEq/L (5-15); Blood Urea Nitrogen 11 mg/dl (9-20); Calcium 7.9 mg/dl (8.4-10.2); Carbon Dioxide 29 mmol/L (22.0-30.0); Chloride 108 mmol/L (98-107); Creatinine Clearance Estimated 73 mL/min (50-200); Estimated Glomerular Filt Rate 94 ml/min (>60); GFR (African American) 114 ML/MIN (>60); Glucose 164 mg/dl (74-100); Potassium 4.3 mmoL/L (3.5-5.1); Sodium 142 mmol/L (136-145)
--- NOTE | 2021-02-17 09:05 | HMH.ACPN2 ---
Internal Medicine - PN: Subj *Date: 02/17/21 *Time: 09:05 Interval history: He states that he is feeling well and doing well this morning. He is alert and joking. He states that he is passing gas. He is n.p.o. except for ice chips still. Exam Vital signs and Labs for Last 24 Hours: Temp Pulse Resp BP Pulse Ox 97.8 F 63 20 152/69 H 97 02/17/21 07:48 02/17/21 07:48 02/17/21 07:48 02/17/21 07:48 02/17/21 07:48 Laboratory Results - last 24 hr 02/16/21 11:30: POC Glucose 134 H 02/16/21 16:52: POC Glucose 204 H 02/16/21 20:35: POC Glucose 180 H 02/17/21 05:39: POC Glucose 162 H 02/17/21 06:24: WBC 10.0, RBC 3.56 L, Hgb 11.1 L, Hct 33.2 L, MCV 93.2, MCH 31.1, MCHC 33.3, RDW 14.3, Plt Count 181, MPV 8.8, Neut % (Auto) 72.1, Lymph % (Auto) 19.7, [place] % (Auto) 5.4, Eos % (Auto) 2.2, Baso % (Auto) 0.6, Neut # (Auto) 7.2, Lymph # (Auto) 2.0, [place] # (Auto) 0.5, Eos # (Auto) 0.2, Baso # (Auto) 0.1 02/17/21 06:24: Sodium 142, Potassium 4.3 D, Chloride 108 H, Carbon Dioxide 29 D, Anion Gap 9.3, BUN 11 D, Creatinine 0.80, Estimated Creat Clear 73, Estimated GFR 94, Est GFR ( Amer) 114, Glucose 164 H, Calcium 7.9 L I & O for Last 24 hours: Intake & Output 02/14/21 02/15/21 02/16/21 02/17/21 11:59 11:59 11:59 11:59 Intake Total 0 / 0 1800 / 1800 3900 / 3900 504 / 504 Output Total 300 / 300 1400 / 1400 1100 / 1100 200 / 200 Balance -300 / -300 400 / 400 2800 / 2800 304 / 304 Weight 174 lb 2 oz 176 lb 5.564 oz 175 lb - Constitutional no acute distress (Sitting up in chair) - *Routine HEENT Exam Head: Present: normocephalic Eye: Present: PERRL - *Routine Respiratory Exam Present: decreased breath sounds, CTA bilaterally - *Routine Cardiovascular Exam Present: RRR - *Routine Abdominal Exam Present: soft, tenderness, surgical scars (Dressing in place wound looks good.) - *Routine Extremities Exam Absent: edema - *Routine Neurological Exam Present: alert, oriented X3 Assessment and Plan (1) Small bowel obstruction Status: Acute Category: Medical Code(s): K56.609 - Unspecified intestinal obstruction, unspecified as to partial versus complete obstruction (2) Coronary artery disease Status: Chronic Category: Medical Code(s): I25.10 - Atherosclerotic heart disease of [place] coronary artery without angina pectoris (3) History of pulmonary embolism Status: Chronic Category: Medical Code(s): Z86.711 - Personal history of pulmonary embolism (4) Tobacco use disorder Status: Chronic Category: Medical Code(s): F17.200 - Nicotine dependence, unspecified, uncomplicated (5) NKECHI (acute kidney injury) Status: Acute Category: Medical Code(s): N17.9 - Acute kidney failure, unspecified (6) Diabetes mellitus Status: Chronic Qualifiers: Diabetes mellitus type: type 2 Diabetes mellitus emt intermediate insulin use: with fdc use Diabetes mellitus complication status: with other specified complication Qualified Code(s): E11.69 - Type 2 diabetes mellitus with other specified complication; Z79.4 - technician terminal and repeater (current) use of insulin Category: Medical Code(s): E11.9 - Type 2 diabetes mellitus without complications (7) Hypokalemia Status: Acute Category: Medical Code(s): E87.6 - Hypokalemia - Assessment and plan all Dx Assessment and Plan for all problems:: Per surgery.
--- NOTE | 2021-02-17 09:17 | P.PN_ITS ---
Subjective Patient reports: flatus (He states that he is passing a little bit of gas ), no bowel movement Progress Note: A&P (1) Small bowel obstruction Status: Acute Assessment and plan: Overall, doing fairly well postoperative day 3 status post exploratory lapar otomy with adhesiolysis. He has passed some flatus but has yet to have a bowel movement. Cautiously advance to clear liquids (2) Coronary artery disease Status: Chronic (3) History of pulmonary embolism Status: Chronic (4) Tobacco use disorder Status: Chronic (5) NKECHI (acute kidney injury) Status: Acute (6) Diabetes mellitus Status: Chronic (7) Hypokalemia Status: Acute Exam Vital signs and Labs for Last 24 Hours: Temp Pulse Resp BP Pulse Ox 97.8 F 63 20 152/69 H 97 02/17/21 07:48 02/17/21 07:48 02/17/21 07:48 02/17/21 07:48 02/17/21 07:48 Laboratory Results - last 24 hr 02/16/21 11:30: POC Glucose 134 H 02/16/21 16:52: POC Glucose 204 H 02/16/21 20:35: POC Glucose 180 H 02/17/21 05:39: POC Glucose 162 H 02/17/21 06:24: WBC 10.0, RBC 3.56 L, Hgb 11.1 L, Hct 33.2 L, MCV 93.2, MCH 31.1, MCHC 33.3, RDW 14.3, Plt Count 181, MPV 8.8, Neut % (Auto) 72.1, Lymph % (Auto) 19.7, [place] % (Auto) 5.4, Eos % (Auto) 2.2, Baso % (Auto) 0.6, Neut # (Auto) 7.2, Lymph # (Auto) 2.0, [place] # (Auto) 0.5, Eos # (Auto) 0.2, Baso # (Auto) 0.1 02/17/21 06:24: Sodium 142, Potassium 4.3 D, Chloride 108 H, Carbon Dioxide 29 D, Anion Gap 9.3, BUN 11 D, Creatinine 0.80, Estimated Creat Clear 73, Estimated GFR 94, Est GFR ( Amer) 114, Glucose 164 H, Calcium 7.9 L I & O for Last 24 hours: Intake & Output 02/14/21 02/15/21 02/16/21 02/17/21 11:59 11:59 11:59 11:59 Intake Total 0 / 0 1800 / 1800 3900 / 3900 504 / 504 Output Total 300 / 300 1400 / 1400 1100 / 1100 200 / 200 Balance -300 / -300 400 / 400 2800 / 2800 304 / 304 Weight 174 lb 2 oz 176 lb 5.564 oz 175 lb - Constitutional no acute distress - *Routine Respiratory Exam Absent: respiratory distress - *Routine Cardiovascular Exam Present: RRR - *Routine Abdominal Exam Present: soft Comments: Incision clean, dry, and intact. No erythema.
--- NOTE | 2021-02-17 10:12 | PC.NURSE ---
Pt ambulating in the driscoll at this time
[2021-02-17 13:42] LABS: POC Glucose,Bedside 121 (70-110)
--- NOTE | 2021-02-17 16:26 | PC.NURSE ---
Addendum entered by Marian Vega RN 02/17/21 18:37: Pt has tried to use the bathroom multiple times this shift to use the bathroom. Pt would then complain of abdominal pain. Pt educated on the importance of not straining and forcing a BM to prevent other issues. Pt given a PRN stool softener and verbalized understanding. Addendum entered by Marian Vega RN 02/17/21 17:21: 10 mg of Morphine used this shift on SPORT INTERN pump Original Note: Pt has ambulated in the driscoll multiple times this shift. Pt has c/o nausea x1 this shift and was administered PRN zofran per OCT w/ favorable results upon reassessment. No other acute changes or complaints at this time, will continue to monitor.
[2021-02-17 17:01] LABS: POC Glucose,Bedside 138 (70-110)
[2021-02-17 20:50] LABS: POC Glucose,Bedside 169 (70-110)
[2021-02-18] VITALS (12 sets, daily range): BP systolic 130–180; BP diastolic 68–93; PULSE 54–88; RESP 17–19; TEMP 36.4–37.3; O2SAT 95–98; BMI 29.8
--- NOTE | 2021-02-18 01:48 | PC.NURSE ---
patient has c/o breakthrough pain and has been given Tylenol 650mg per MAR and states its relieved it some. Will continue to monitor.
[2021-02-18 06:39] LABS: POC Glucose,Bedside 145 (70-110)
--- NOTE | 2021-02-18 07:26 | PC.NURSE ---
LINER REPLACER shift total 36.3
--- NOTE | 2021-02-18 09:36 | HMH.GSPN ---
Subjective Patient reports: flatus (He states that he has now passed quite a bit more gas ), no bowel movement Progress Note: A&P (1) Small bowel obstruction Status: Acute (2) Coronary artery disease Status: Chronic (3) History of pulmonary embolism Status: Chronic (4) Tobacco use disorder Status: Chronic (5) NKECHI (acute kidney injury) Status: Acute (6) Diabetes mellitus Status: Chronic (7) Hypokalemia Status: Acute (8) Postoperative ileus Status: Acute Assessment and plan: Resolving Assessment and Plan for All Diagnoses:: Overall, doing well status post laparotomy for small bowel obstruction. Full liquid diet ordered Possible discharge home either late today or tomorrow if he tolerates advancement of his diet Exam Vital signs and Labs for Last 24 Hours: Temp Pulse Resp BP Pulse Ox 97.9 F 60 18 148/80 H 96 02/18/21 09:24 02/18/21 09:24 02/18/21 09:24 02/18/21 09:24 02/18/21 09:24 Laboratory Results - last 24 hr 02/17/21 11:56: POC Glucose 121 H 02/17/21 16:52: POC Glucose 138 H 02/17/21 20:34: POC Glucose 169 H 02/18/21 05:50: POC Glucose 145 H I & O for Last 24 hours: Intake & Output 02/15/21 02/16/21 02/17/21 02/18/21 11:59 11:59 11:59 11:59 Intake Total 1800 / 1800 3900 / 3900 504 / 504 3321 / 3321 Output Total 1400 / 1400 1100 / 1100 200 / 200 Balance 400 / 400 2800 / 2800 304 / 304 3321 / 3321 Weight 174 lb 2 oz 176 lb 5.564 oz 175 lb 179 lb Microbiology Reports for the Last 24 Hours: Microbiology 02/12/21 19:27 Blood Blood Culture - Final NO GROWTH AFTER 5 DAYS 02/12/21 19:27 Blood Blood Culture - Final NO GROWTH AFTER 5 DAYS - Constitutional no acute distress - *Routine Respiratory Exam Absent: respiratory distress - *Routine Cardiovascular Exam Present: RRR - *Routine Abdominal Exam Present: soft Comments: Incision clean, dry, and intact. No erythema.
[2021-02-18 11:54] LABS: POC Glucose,Bedside 160 (70-110)
--- NOTE | 2021-02-18 14:27 | HMH.ACPN2 ---
Internal Medicine - PN: Subj *Date: 02/18/21 *Time: 14:28 Interval history: He seems to be doing well. He is taking liquids and he is passing gas. He has not yet had a bowel movement. He complains of feeling cold this afternoon. Dr. Grady's note is reviewed. Exam Vital signs and Labs for Last 24 Hours: Temp Pulse Resp BP Pulse Ox 97.7 F 66 19 163/78 H 95 02/18/21 11:38 02/18/21 11:38 02/18/21 11:38 02/18/21 11:38 02/18/21 11:38 Laboratory Results - last 24 hr 02/17/21 16:52: POC Glucose 138 H 02/17/21 20:34: POC Glucose 169 H 02/18/21 05:50: POC Glucose 145 H 02/18/21 11:27: POC Glucose 160 H I & O for Last 24 hours: Intake & Output 02/16/21 02/17/21 02/18/21 02/19/21 11:59 11:59 11:59 11:59 Intake Total 3900 / 3900 504 / 504 3321 / 3321 360 / 360 Output Total 1100 / 1100 200 / 200 Balance 2800 / 2800 304 / 304 3321 / 3321 360 / 360 Weight 176 lb 5.564 oz 175 lb 179 lb Microbiology Reports for the Last 24 Hours: Microbiology 02/12/21 19:27 Blood Blood Culture - Final NO GROWTH AFTER 5 DAYS 02/12/21 19:27 Blood Blood Culture - Final NO GROWTH AFTER 5 DAYS - Constitutional no acute distress (He is in bed at the time of this evaluation.) - *Routine HEENT Exam Head: Present: normocephalic Eye: Present: PERRL ENT: Present: mucous membranes moist - *Routine Respiratory Exam Present: CTA bilaterally - *Routine Cardiovascular Exam Present: RRR - *Routine Abdominal Exam Present: normoactive bowel sounds, distended, wound (With [place] intact and healing) - *Routine Extremities Exam Present: edema (2+ edema today) - *Routine Neurological Exam Present: alert, oriented X3 Assessment and Plan (1) Small bowel obstruction Status: Acute Category: Medical Code(s): K56.609 - Unspecified intestinal obstruction, unspecified as to partial versus complete obstruction (2) Coronary artery disease Status: Chronic Category: Medical Code(s): I25.10 - Atherosclerotic heart disease of [place] coronary artery without angina pectoris (3) History of pulmonary embolism Status: Chronic Category: Medical Code(s): Z86.711 - Personal history of pulmonary embolism (4) Tobacco use disorder Status: Chronic Category: Medical Code(s): F17.200 - Nicotine dependence, unspecified, uncomplicated (5) NKECHI (acute kidney injury) Status: Acute Category: Medical Code(s): N17.9 - Acute kidney failure, unspecified (6) Diabetes mellitus Status: Chronic Qualifiers: Diabetes mellitus type: type 2 Diabetes mellitus terminal supervisor insulin use: with terminal supervisor use Diabetes mellitus complication status: with other specified complication Qualified Code(s): E11.69 - Type 2 diabetes mellitus with other specified complication; Z79.4 - technician terminal and repeater (current) use of insulin Category: Medical Code(s): E11.9 - Type 2 diabetes mellitus without complications (7) Hypokalemia Status: Acute Category: Medical Code(s): E87.6 - Hypokalemia (8) Postoperative ileus Status: Acute Category: Medical Code(s): K91.89 - Other postprocedural complications and disorders of digestive system; K56.7 - Ileus, unspecified - Assessment and plan all Dx Assessment and Plan for all problems:: His IV fluid rate has been decreased. I will give a one-time dose of 20 mg of Lasix IV. His weight is actually up 5 pounds from his real admission weight.
--- NOTE | 2021-02-18 15:31 | PC.NURSE ---
changed Morphine ORACLE ASCP CONSULTANT syringe
[2021-02-18 15:36] LABS: POC Glucose,Bedside 137 (70-110)
--- NOTE | 2021-02-18 18:24 | PC.NURSE ---
Pt is alert and oriented x 3, person, place and situation. SENIOR SYSTEMS PROGRAMMER pump in use and pt resting in bed at this time. Lungs cta, s1,s2, bs are active, no bm as of this time.Dsg is cdi to midline incision. Pt did have x 1 episode of nausea and prn zofran given per oct. CB in reach. VSS. MX continues.
--- NOTE | 2021-02-18 19:44 | PC.NURSE ---
15.1 MG MORPHINE IV THIS SHIFT
[2021-02-18 20:03] LABS: POC Glucose,Bedside 113 (70-110)
[2021-02-19] VITALS: BP 133/66; PULSE 80; RESP 20; TEMP 37.1; O2SAT 94
[2021-02-19 04:00] VITALS: BP 140/68; PULSE 64; RESP 18; TEMP 36.9; O2SAT 93
[2021-02-19 05:00] VITALS: BMI 29.8
--- NOTE | 2021-02-19 06:02 | PC.NURSE ---
Patient rested with eyes closed most of the shift; attempted to have BM with no success. Patient eating and drinking tolerating well. Surgical incision has been open to air without shirt covering it, no redness or swelling noted. Bed at lowest level for safety, call light within reach; will continue to monitor.
[2021-02-19 06:28] LABS: POC Glucose,Bedside 142 (70-110)
--- NOTE | 2021-02-19 07:58 | HMH.ACPN2 ---
<Laurie Quiros - Last Filed: 02/19/21 07:58> Internal Medicine - PN: Subj *Date: 02/19/21 *Time: 07:58 Interval history: Patient would like to go home today. He is ambulating in the room without difficulty. He continues to pass flatus but no stool as yet. He is voiding without any difficulty. He states he has not had to use the pain pump much. He is taking his full liquid diet without nausea or vomiting. He did receive 20 of Lasix IV yesterday. He feels the swelling in his legs is better but is still present. The bottoms of his feet are sore. Unable to determine urinary output. He states he voids about every 4 hours. Exam Vital signs and Labs for Last 24 Hours: Temp Pulse Resp BP Pulse Ox 98.4 F 64 18 140/68 93 L 02/19/21 04:00 02/19/21 04:00 02/19/21 04:00 02/19/21 04:00 02/19/21 04:00 Laboratory Results - last 24 hr 02/18/21 11:27: POC Glucose 160 H 02/18/21 15:13: POC Glucose 137 H 02/18/21 19:11: POC Glucose 113 H 02/19/21 05:42: POC Glucose 142 H I & O for Last 24 hours: Intake & Output 02/16/21 02/17/21 02/18/21 02/19/21 11:59 11:59 11:59 11:59 Intake Total 3900 / 3900 504 / 504 3321 / 3321 2113 / 2113 Output Total 1100 / 1100 200 / 200 Balance 2800 / 2800 304 / 304 3321 / 3321 2113 / 2113 Weight 176 lb 5.564 oz 175 lb 179 lb 178 lb 15.999 oz - Constitutional no acute distress Comments: Up and ambulating in the room - *Routine Respiratory Exam Present: CTA bilaterally (Anteriorly and posteriorly) - *Routine Cardiovascular Exam Present: RRR - *Routine Abdominal Exam Present: soft, normoactive bowel sounds, tenderness (Postoperative) - *Routine Extremities Exam Present: edema. Absent: calf tenderness - *Routine Neurological Exam Present: alert, oriented X3 Assessment and Plan (1) Small bowel obstruction Status: Acute Category: Medical Code(s): K56.609 - Unspecified intestinal obstruction, unspecified as to partial versus complete obstruction (2) Coronary artery disease Status: Chronic Category: Medical Code(s): I25.10 - Atherosclerotic heart disease of [place] coronary artery without angina pectoris (3) History of pulmonary embolism Status: Chronic Category: Medical Code(s): Z86.711 - Personal history of pulmonary embolism (4) Tobacco use disorder Status: Chronic Category: Medical Code(s): F17.200 - Nicotine dependence, unspecified, uncomplicated (5) NKECHI (acute kidney injury) Status: Acute Category: Medical Code(s): N17.9 - Acute kidney failure, unspecified (6) Diabetes mellitus Status: Chronic Qualifiers: Diabetes mellitus type: type 2 Diabetes mellitus prison insulin use: with prison use Diabetes mellitus complication status: with other specified complication Qualified Code(s): E11.69 - Type 2 diabetes mellitus with other specified complication; Z79.4 - USP (current) use of insulin Category: Medical Code(s): E11.9 - Type 2 diabetes mellitus without complications (7) Hypokalemia Status: Acute Category: Medical Code(s): E87.6 - Hypokalemia (8) Postoperative ileus Status: Acute Category: Medical Code(s): K91.89 - Other postprocedural complications and disorders of digestive system; K56.7 - Ileus, unspecified - Assessment and plan all Dx Assessment and Plan for all problems:: Continue current care and follow surgeon direction. Possibly home today. <Oliver Villalobos - Last Filed: 02/19/21 08:44> Internal Medicine - PN: Subj *Date: 02/19/21 *Time: 08:44 Exam Vital signs and Labs for Last 24 Hours: Temp Pulse Resp BP Pulse Ox 98.3 F 74 24 178/88 H 97 02/19/21 08:00 02/19/21 08:00 02/19/21 08:00 02/19/21 08:00 02/19/21 08:00 Laboratory Results - last 24 hr 02/18/21 11:27: POC Glucose 160 H 02/18/21 15:13: POC Glucose 137 H 02/18/21 19:11: POC Glucose 113 H 02/19/21 05:42: POC Glucose 142 H I & O for Last 24 hours: Intake & Output
[2021-02-19 08:00] VITALS: BP 178/88; PULSE 74; RESP 24; TEMP 36.8; O2SAT 97
--- NOTE | 2021-02-19 08:25 | P.PN_ITS ---
Subjective Narrative: Patient would like to go home. He states he is passing flatus. No bowel movement. He has had some rare nausea with full liquids. He has had some occasional abdominal bloating and swelling. Progress Note: A&P (1) Small bowel obstruction Status: Acute (2) Coronary artery disease Status: Chronic (3) History of pulmonary embolism Status: Chronic (4) Tobacco use disorder Status: Chronic (5) NKECHI (acute kidney injury) Status: Acute (6) Diabetes mellitus Status: Chronic (7) Hypokalemia Status: Acute (8) Postoperative ileus Status: Acute Assessment and Plan for All Diagnoses:: Check abdominal series to assess bowel gas pattern. 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 Exam Vital signs and Labs for Last 24 Hours: Temp Pulse Resp BP Pulse Ox 98.4 F 64 18 140/68 93 L 02/19/21 04:00 02/19/21 04:00 02/19/21 04:00 02/19/21 04:00 02/19/21 04:00 Laboratory Results - last 24 hr 02/18/21 11:27: POC Glucose 160 H 02/18/21 15:13: POC Glucose 137 H 02/18/21 19:11: POC Glucose 113 H 02/19/21 05:42: POC Glucose 142 H I & O for Last 24 hours: Intake & Output 02/16/21 02/17/21 02/18/21 02/19/21 11:59 11:59 11:59 11:59 Intake Total 3900 / 3900 504 / 504 3321 / 3321 2113 Output Total 1100 / 1100 200 / 200 Balance 2800 / 2800 304 / 304 3321 / 3321 2113 Weight 176 lb 5.564 oz 175 lb 179 lb 178 lb 15.999 oz - *Routine Abdominal Exam Present: distended Comments: He has mild abdominal distention.
--- NOTE | 2021-02-19 08:26 | XR_ITS ---
PROCEDURE: XR ABDOMEN MIN 2V CLINICAL INDICATION: BOWEL OBSTRUCTION, DISTENSION COMPARISON: CR XR ABDOMEN MIN 2V from 02/14/2021 FINDINGS: Surgical clips are now present along the abdominal wall on the left. Mildly prominent small bowel loops are once again noted which appear less distended than when compared to the previous exam. There is an increased amount of large bowel gas noted. Nasogastric tube has been removed. There postsurgical changes of the lumbar spine. There are mild atelectatic changes in the lung bases. No free air is identified IMPRESSION: Interval surgery with persistent mildly prominent small bowel loops which has slightly improved with increasing large bowel gas. Dictated by: Sky Brownlee MD 02/19/2021 12:02 Sky Brownlee MD in [facility] 02/19/2021 12:02
--- NOTE | 2021-02-19 12:51 | HMH.GSPN ---
Subjective Narrative: Patient needed a large amount of full liquids for lunch. He does have abdominal bloating and has had some intermittent nausea. Acute abdominal series reveals findings of persistent bowel gas distention but somewhat improved from preoperatively. Progress Note: A&P (1) Small bowel obstruction Status: Acute (2) Coronary artery disease Status: Chronic (3) History of pulmonary embolism Status: Chronic (4) Tobacco use disorder Status: Chronic (5) NKECHI (acute kidney injury) Status: Acute (6) Diabetes mellitus Status: Chronic (7) Hypokalemia Status: Acute (8) Postoperative ileus Status: Acute Assessment and Plan for All Diagnoses:: I reviewed his abdominal x-rays. This appears to be most consistent with resolving postoperative ileus. Given the fact that the patient has not moved his bowels, has had abdominal distention with occasional nausea, and given the findings on x-ray, I would hesitate for discharge home. I will give him some simethicone. Encouraged ambulation. Hopefully discharge soon. Exam Vital signs and Labs for Last 24 Hours: Temp Pulse Resp BP Pulse Ox 98.3 F 74 24 178/88 H 97 02/19/21 08:00 02/19/21 08:00 02/19/21 08:00 02/19/21 08:00 02/19/21 08:00 Laboratory Results - last 24 hr 02/18/21 15:13: POC Glucose 137 H 02/18/21 19:11: POC Glucose 113 H 02/19/21 05:42: POC Glucose 142 H I & O for Last 24 hours: Intake & Output 02/17/21 02/18/21 02/19/21 02/20/21 11:59 11:59 11:59 11:59 Intake Total 504 / 504 3321 / 3321 2234 / 223 Output Total 200 / 200 Balance 304 / 304 3321 / 3321 2234 / 2234 Weight 175 lb 179 lb 178 lb 15.999 oz
[2021-02-19 13:14] LABS: POC Glucose,Bedside 118 (70-110)
--- NOTE | 2021-02-19 13:50 | SW/DCPLANNER ---
PATIENT REMAINS IN THE ACUTE HOSPITAL, WISHES TO RETURN BACK HOME WITH HIS BUT HAS NOT BEEN MEDICALLY READY TO DO SO... ONCE HE HAS BEEN CLEARED TO DISCHARGE, IT DOESN'T APPEAR HE IS GOING TO NEED ANYTHING AT THIS TIME... CM WILL FOLLOW HIM THROUGH THE REST OF HIS STAY AND IF THINGS CHANGE, WILL BE AVAILABLE TO ASSIST INDICATED BY MD...
[2021-02-19 16:00] VITALS: BP 155/85; PULSE 96; RESP 24; TEMP 36.8; O2SAT 94
[2021-02-19 16:13] LABS: POC Glucose,Bedside 135 (70-110)
--- NOTE | 2021-02-19 17:45 | PC.NURSE ---
Pt has been pleasant and cooperative this shift. A&O X4. 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 Pt has had frequent complaints of nausea and indigestion. Zofran and Simethicone administered. Pt is on room air with sats. >90%. Lungs CTA. No edema noted. Abdominal surgical incision open to air. Pt ambulates independently to/from the bathroom and throughout the room. Pt also sat up in the chair for several hours and ambulated in the hallway today. Urine is clear and yellow. No BM today. Appetite is good and pt eats the majority of all meals. Pt is currently receiving full liquids. FSBS results have been 118 and 135, neither of which have required insulin coverage per MAR. 20 G peripheral IV in the RT wrist is patent and SL. VSS. Call light within reach. Will continue to monitor.
[2021-02-19 20:00] VITALS: BP 174/88; PULSE 78; RESP 20; TEMP 37; O2SAT 94; O2SAT 96
[2021-02-19 20:32] LABS: POC Glucose,Bedside 139 (70-110)
--- NOTE | 2021-02-19 22:06 | PC.NURSE ---
Addendum entered by Angela Brady RN 02/20/21 05:55: Patient is resting with eyes closed. Has had no additional vomitting episodes at this time. Original Note: Patient vomitted green emesis x 3 (500mL total); zofran administered per MAR. Patient attempted to take Maloox 30 CC only took a very small amount and was unable to tolerate it and vomitted it up. Patient up in chair A&O x 4 and states just don't move me. at bedside. Will continue to monitor.
[2021-02-20 04:00] VITALS: BP 157/58; PULSE 89; RESP 18; TEMP 37.6; O2SAT 92
[2021-02-20 04:52] VITALS: BMI 29.8
[2021-02-20 06:40] LABS: POC Glucose,Bedside 105 (70-110)
[2021-02-20 07:06] LABS: Basophils % 0.2 % (0.1-2.0); Eosinophils # 0.1 K/mm3 (0.0-0.4); Eosinophils % 1.2 % (0.1-12.0); Hemoglobin 12.5 g/dL (14.1-18.0); Lymphocytes % 20.3 % (10-50); Mean Corpuscular HGB Conc 32.1 g/dL (31.8-35.4); Mean Corpuscular Hemoglobin 29.8 pg (27.0-31.2); Mean Corpuscular Volume 92.9 fl (80-94); Mean Platelet Volume 7.9 fl (7.4-10.4); Monocytes # 0.7 K/mm3 (0.1-1.0); Monocytes % 7.5 % (1.7-9.3); Neutrophils % 70.8 % (37.0-80.0); Platelet Count 253 K/mm3 (142-424); Red Cell Distribution Width 13.4 % (11.5-17.5); White Blood Count 9.9 K/mm3 (4.8-10.8)
[2021-02-20 07:10] LABS: Chloride 101 mmol/L (98-107); Potassium 3.5 mmoL/L (3.5-5.1); Sodium 140 mmol/L (136-145)
[2021-02-20 07:13] LABS: Anion Gap 10.5 mEq/L (5-15); Blood Urea Nitrogen 12 mg/dl (9-20); Calcium 8.6 mg/dl (8.4-10.2); Carbon Dioxide 32 mmol/L (22.0-30.0); Creatinine Clearance Estimated 74 mL/min (50-200); Estimated Glomerular Filt Rate 94 ml/min (>60); GFR (African American) 114 ML/MIN (>60); Glucose 121 mg/dl (74-100)
[2021-02-20 07:56] VITALS: BP 151/89; PULSE 84; RESP 22; TEMP 36.9; O2SAT 92
[2021-02-20 08:00] VITALS: O2SAT 92
--- NOTE | 2021-02-20 08:31 | HMH.ACPN2 ---
<Laurie Quiros - Last Filed: 02/20/21 08:31> Internal Medicine - PN: Subj *Date: 02/20/21 *Time: 08:31 Interval history: Patient had a rough evening last p.m. He vomited a large amount of bile-darlene type liquid. Zofran really did not help. He stayed n.p.o. during the night and was trying to eat full liquids this morning. He describes a little bit of nausea. His bowels did move twice this a.m. He has had no further vomiting. He denies chest pain at shortness of breath. He had a decrease in ambulation yesterday due to abdominal soreness. He still has leg edema which he thinks has slightly improved. Is no longer on the morphine pain PCI pump and has been transition to p.o. pain medicine. Laboratory data this morning show a normal white blood cell count with a hemoglobin of 12.5 hematocrit of 39. Blood chemistries show satisfactory electrolytes and normal renal function. Abdominal x-ray from yesterday shows interval surgery with persistent mildly prominent small bowel loops slightly improved With increasing large bowel gas Exam Vital signs and Labs for Last 24 Hours: Temp Pulse Resp BP Pulse Ox 98.5 F 84 22 151/89 H 92 L 02/20/21 07:56 02/20/21 07:56 02/20/21 07:56 02/20/21 07:56 02/20/21 07:56 Laboratory Results - last 24 hr 02/19/21 11:19: POC Glucose 118 H 02/19/21 16:03: POC Glucose 135 H 02/19/21 20:23: POC Glucose 139 H 02/20/21 05:58: POC Glucose 105 02/20/21 06:22: WBC 9.9, RBC 4.20 L, Hgb 12.5 L, Hct 39.0 L, MCV 92.9, MCH 29.8, MCHC 32.1, RDW 13.4, Plt Count 253 D, MPV 7.9, Neut % (Auto) 70.8, Lymph % (Auto) 20.3, Sac % (Auto) 7.5, Eos % (Auto) 1.2, Baso % (Auto) 0.2, Neut # (Auto) 7.0, Lymph # (Auto) 2.0, Sac # (Auto) 0.7, Eos # (Auto) 0.1, Baso # (Auto) 0.0 02/20/21 06:22: Sodium 140, Potassium 3.5, Chloride 101, Carbon Dioxide 32 H, Anion Gap 10.5, BUN 12, Creatinine 0.80, Estimated Creat Clear 74, Estimated GFR 94, Est GFR ( Amer) 114, Glucose 121 H, Calcium 8.6 I & O for Last 24 hours: Intake & Output 02/17/21 02/18/21 02/19/21 02/20/21 11:59 11:59 11:59 11:59 Intake Total 504 / 504 3321 / 3321 2234 / 2234 1080 / 1080 Output Total 200 / 200 1000 / 1000 Balance 304 / 304 3321 / 3321 2234 / 1234 80 / 80 Weight 175 lb 179 lb 178 lb 15.999 oz 178 lb 15.999 oz - Constitutional no acute distress Comments: Sitting on bedside trying to eat full liquids. - *Routine Respiratory Exam Present: CTA bilaterally (Anteriorly and posteriorly) - *Routine Cardiovascular Exam Present: RRR - *Routine Abdominal Exam Present: normoactive bowel sounds, tenderness (Postoperative), distended - *Routine Extremities Exam Present: edema (Less bilateral edema noted) - *Routine Neurological Exam Present: alert, oriented X3 Assessment and Plan (1) Small bowel obstruction Status: Acute Category: Medical Code(s): K56.609 - Unspecified intestinal obstruction, unspecified as to partial versus complete obstruction (2) Coronary artery disease Status: Chronic Category: Medical Code(s): I25.10 - Atherosclerotic heart disease of [place] coronary artery without angina pectoris (3) History of pulmonary embolism Status: Chronic Category: Medical Code(s): Z86.711 - Personal history of pulmonary embolism (4) Tobacco use disorder Status: Chronic Category: Medical Code(s): F17.200 - Nicotine dependence, unspecified, uncomplicated (5) NKECHI (acute kidney injury) Status: Acute Category: Medical Code(s): N17.9 - Acute kidney failure, unspecified (6) Diabetes mellitus Status: Chronic Qualifiers: Diabetes mellitus type: type 2 Diabetes mellitus 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
--- NOTE | 2021-02-20 08:45 | HMH.GSPN ---
Subjective Narrative: Morning patient trampled he states that he feels better and have a couple bowel movements and is ready to go home. However, he apparently had a rough night . He had significant amount of vomiting of green bile liquid. Progress Note: A&P (1) Small bowel obstruction Status: Acute (2) Coronary artery disease Status: Chronic (3) History of pulmonary embolism Status: Chronic (4) Tobacco use disorder Status: Chronic (5) NKECHI (acute kidney injury) Status: Acute (6) Diabetes mellitus Status: Chronic (7) Hypokalemia Status: Acute (8) Postoperative ileus Status: Acute Assessment and Plan for All Diagnoses:: It is reassuring that the patient has been moving his bowels now. However, yesterday's x-ray was consistent with ileus and he had large amount of bilious vomitus last night. I will check a follow-up x-ray today. He did tolerate diet this morning. If x-ray shows improvement and he continues to improve possible discharge this afternoon Exam Vital signs and Labs for Last 24 Hours: Temp Pulse Resp BP Pulse Ox 98.5 F 84 22 151/89 H 92 L 02/20/21 07:56 02/20/21 07:56 02/20/21 07:56 02/20/21 07:56 02/20/21 07:56 Laboratory Results - last 24 hr 02/19/21 11:19: POC Glucose 118 H 02/19/21 16:03: POC Glucose 135 H 02/19/21 20:23: POC Glucose 139 H 02/20/21 05:58: POC Glucose 105 02/20/21 06:22: WBC 9.9, RBC 4.20 L, Hgb 12.5 L, Hct 39.0 L, MCV 92.9, MCH 29.8, MCHC 32.1, RDW 13.4, Plt Count 253 D, MPV 7.9, Neut % (Auto) 70.8, Lymph % (Auto) 20.3, [place] % (Auto) 7.5, Eos % (Auto) 1.2, Baso % (Auto) 0.2, Neut # (Auto) 7.0, Lymph # (Auto) 2.0, [place] # (Auto) 0.7, Eos # (Auto) 0.1, Baso # (Auto) 0.0 02/20/21 06:22: Sodium 140, Potassium 3.5, Chloride 101, Carbon Dioxide 32 H, Anion Gap 10.5, BUN 12, Creatinine 0.80, Estimated Creat Clear 74, Estimated GFR 94, Est GFR ( Amer) 114, Glucose 121 H, Calcium 8.6 I & O for Last 24 hours: Intake & Output 02/17/21 02/18/21 02/19/21 02/20/21 11:59 11:59 11:59 11:59 Intake Total 504 / 504 3321 / 3321 2234 / 2234 1080 / 1080 Output Total 200 / 200 1000 / 1000 Balance 304 / 304 3321 / 3321 2234 / 1234 80 / 80 Weight 175 lb 179 lb 178 lb 15.999 oz 178 lb 15.999 oz - *Routine Abdominal Exam Present: soft
--- NOTE | 2021-02-20 08:46 | XR_ITS ---
PROCEDURE: XR ACUTE ABDOMEN SERIES CLINICAL INDICATION: SMALL BOWEL OBSTRUCTION COMPARISON: CR XR CHEST 2V from 02/12/2021 CR XR ABDOMEN MIN 2V from 02/14/2021 CR XR ABDOMEN MIN 2V from 02/19/2021 FINDINGS: Frontal view of the chest shows COPD changes Atelectatic changes are present in the lower lobes on both sides. There has been a prior CABG. Upright and supine views of the abdomen show gas-filled loops of small and large bowel with air-fluid levels in both large and small bowel. There may be some large and small bowel wall thickening. In the right upper quadrant there appears to be air-fluid levels on the upright view and could be some residual fluid from the recent surgery. Surgical clips are present along the lower abdomen and there are surgical tacks in the mid abdominal region. Postsurgical changes lumbar spine with degenerative changes of the hips. Other findings:None. IMPRESSION: Scattered air-fluid levels within large and small bowel which may represent postoperative ileus. Questionable air-fluid levels in the right upper quadrant/lower thoracic region. This could be residual from recent surgery. CT with IV and oral contrast may better evaluate this finding if clinically desired. Dictated by: Sky Brownlee MD 02/20/2021 10:48 Sky Brownlee MD in [facility] 02/20/2021 10:48
[2021-02-20 11:45] LABS: POC Glucose,Bedside 134 (70-110)
--- NOTE | 2021-02-20 11:49 | PC.NURSE ---
PT IS SITTING UP IN THE CHAIR WITH FAMILY IN THE ROOM. PT STATED HE HAD A VERY ROUGH NIGHT WITH NAUSEA/VOMITING BUT IS FEELING MUCH BETTER THIS SHIFT. PT HAS BEEN UP AMBULATING AROUND THE ROOM. INCISION OPEN TO AIR. LUNG SOUNDS CLEAR. ABDOMEN SOFT/TENDER WITH HYPOACTIVE BOWEL SOUNDS. PT HAS ALREADY HAD 3 BOWEL MOVEMENTS THIS SHIFT. REFUSED NICOTINE PATCH THIS AM. WILL CONTINUE TO MONITOR.
--- NOTE | 2021-02-21 16:44 | HMH.DCSUM ---
General - General Admission date:: 02/12/21 Discharge date: 02/20/21 HPI HPI: Mr Browne is a 75-year-old male from [place] with history of smoking/tobacco abuse, hypertension, diabetes mellitus, coronary disease with previous stenting, history of pulmonary embolism on Plavix who previously underwent laparoscopic cholecystectomy and has had apparent laparoscopic ventral hernia repair done in [place] sometime ago. He states that several days ago he developed some abdominal discomfort. He had pain in the left upper quadrant and right upper quadrant. He was unable to tolerate oral intake resulting in vomiting. He also describes several days of obstipation. He underwent outpatient CT scan which reportedly revealed findings of bowel obstruction. He therefore was asked to present to the emergency department. CT scan revealed findings consistent with partial high-grade obstruction with transition point in the left upper quadrant. He was admitted for inpatient management and surgical consultation this morning. The above per Dr. Corado This a.m. nursing is trying to place an NG tube. He has been nauseated through the night but has not vomited and remains n.p.o. He continues to have abdominal discomfort. He is passing no flatus. He does belch. He states he has had a diminished urinary output. His last stool was 02/09/2021. He denies melena, hematochezia and hematemesis. Patient states he had an office visit yesterday to schedule clearance for his upcoming right hip surgery. Due to his vomiting he had the CT scan. With the results he was directed to the emergency room for further evaluation. In the emergency room white blood cell count was found to be 14,000. He did have a bolus of fluids and was given Pepcid, Toradol, Reglan as well as Zofran. CT of the abdomen showed the following: IMPRESSION: 1. There is evidence of high-grade small bowel obstruction with the transition point located in the left upper quadrant. No evidence of perforation or abscess. 2. Nonobstructive left renal stones. No ureteral stones or hydronephrosis. 3. Small volume reactive ascites in the pelvis. 4. Additional non-emergent findings detailed above. He was thus admitted with surgical consult. Hospital Course Hospital Course: The patient was seen in consultation by Dr. Corado. He was placed n.p.o. and an NG tube was ordered. He was continued on IV fluids for hydration. His white blood cell count did return to normal. His NG tube was finally placed with 400 cc of aspirate. He had an abdominal x-ray on 02/14/2021 which showed a small bowel obstruction. His NG continue to drain brown thick liquid. He felt the need to defecate without any results. He continued to feel nauseated but did not vomit. He had persistently high NG output and due to the x-ray showing a persistent small bowel obstruction, Dr. Corado planned surgery. He took the patient to the OR on 02/14/2021 and performed a diagnostic laparoscopy along with an exploratory laparotomy with release of the complete bowel obstruction. The patient tolerated the procedure well but did have fairly significant postoperative pain. 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 The patient's Perla was removed and he was encouraged to ambulate. His NG tube did begin leaking, therefore Dr. Corado placed the NG to straight drain and felt it could be discontinued at a later time. His potassium was low and this was replaced IV. The patient tolerated NG to straight drain with almost no output and was able to pass some gas, therefore his NG tube was discontinued. His diet was advanced and he tolerated this well. His gained 5 pounds from his admission weight and had swelling in his legs, therefore he was given a one-time dose of 20 mg of Lasix. The patient was able to ambulate in the room without difficulty and the Lasix helped the swelling in his legs. Dr. Corado ordered a repeat abdominal x-ray on 02/19/2021 and i
== END 2021-02-20 13:44 | disposition home or self-care (01) | DRG 357 ==
LOC: ER 20:18 → 2ND 22:02
PROVIDERS: Surgery; Admitting Provider Family Medicine; Emergency Provider Emergency Medicine; PCP Nurse Practitioner; Visit Provider Family Medicine
PROC: 0DQV0ZZ Repair Mesentery, Open Approach (ICD-10-PCS; CPT 49000; principal; 2021-02-14 10:45)
DX: K46.0 Unspecified abdominal hernia with obstruction, without gangrene (principal); N17.9 Acute kidney failure, unspecified; K56.7 Ileus, unspecified; I10 Essential (primary) hypertension; Z95.5 Presence of coronary angioplasty implant and graft; F17.210 Nicotine dependence, cigarettes, uncomplicated; Z53.31 Laparoscopic surgical procedure converted to open procedure; I25.10 Atherosclerotic heart disease of native coronary artery without angina pectoris; Z20.822 Contact with and (suspected) exposure to COVID-19; Z86.711 Personal history of pulmonary embolism; K21.9 Gastro-esophageal reflux disease without esophagitis; Z87.442 Personal history of urinary calculi; Z96.659 Presence of unspecified artificial knee joint; E11.69 Type 2 diabetes mellitus with other specified complication; Z79.84 Long term (current) use of oral hypoglycemic drugs; F32.9 Major depressive disorder, single episode, unspecified
CPT/HCPCS: 49560; 36415; 71046; 74019; 74021; 74176; 80048; 80053; 81001; 82150; 82962; 83605; 83690; 84145; 85025; 85651; 86140; 87040; 93005; 96365; 96375; 99284; J0131; J1956; J2405; U0003

== ENCOUNTER → 2021-05-01 09:55 | Outpatient (CLI) | payer MEDICARE, SELFPAY ==
--- NOTE | 2021-05-01 10:01 | NM_ITS ---
PROCEDURE: NM GASTRIC EMPTYING STUDY CLINICAL INDICATION: fu small bowel obstruction COMPARISON: No exams were available for comparison TECHNIQUE: DOSE: 0.49 mCi technetium sulfur colloid mixed with radial labeled meal FINDINGS: Time activity curve is generated following the gastric emptying. The 1/2 emptying time is 99 minutes slightly prolonged with normal 60+/-30 minutes. There was approximately 29 percent retention at 240 minutes No gastroesophageal reflux demonstrated on the images submitted. IMPRESSION: Slightly delayed gastric emptying with the 1/2 emptying time of 99 minutes and 29 percent retention at 240 minutes. Dictated by: Sky Brownlee MD 05/01/2021 15:24 Sky Brownlee MD in [facility] 05/01/2021 15:24
== END ==
PROVIDERS: PCP Nurse Practitioner; Visit Provider Surgery
DX: K56.609 Unspecified intestinal obstruction, unspecified as to partial versus complete obstruction (principal)
CPT/HCPCS: 78264; A9541

== ENCOUNTER → 2021-05-03 08:46 | Outpatient (CLI) | payer MEDICARE, SELFPAY ==
--- NOTE | 2021-05-03 08:46 | FL_ITS ---
PROCEDURE: FL UPPER GI SMALL BOWEL CLINICAL INDICATION: small bowel obstruction fu COMPARISON: No exams were available for comparison FINDINGS: Dishwashing Machine Repairer exam shows surgical tacks in the upper abdomen and surgical clips in the right upper quadrant. Prior fusion L5-S1. The esophagus stomach and duodenum have an unremarkable appearance. No mass or obstructing lesion. No obvious gastro paresis. Small bowel has an unremarkable appearance. No obstructing lesions mass or mucosal abnormalities are evident. No small bowel dilatation. IMPRESSION: Unremarkable upper GI and small-bowel follow. Dictated by: Sky Brownlee MD 05/03/2021 15:10 Sky Brownlee MD in [facility] 05/03/2021 15:10
== END ==
PROVIDERS: PCP Nurse Practitioner; Visit Provider Surgery
DX: K56.609 Unspecified intestinal obstruction, unspecified as to partial versus complete obstruction (principal)
CPT/HCPCS: 74246; 74248

== ENCOUNTER → 2021-07-18 10:40 | Outpatient (CLI) | payer MEDICARE, SELFPAY ==
[2021-07-18 10:47] LABS: Microscopic, Urine URINE MICROSCOPIC (MICROSCOPIC)
--- NOTE | 2021-07-18 11:01 | XR_ITS ---
PROCEDURE: XR HIP RT 2-3V W/PELVIS CLINICAL INDICATION: preop, sx 08/02/21 COMPARISON: CR XR HIP RT 2-3V W/PELVIS from 11/04/2020 FINDINGS: There are moderate osteoarthritic changes of the right hip overall not significantly changed. No fracture or dislocation. No lytic or blastic change. AP view of the pelvis also shows mild to moderate osteoarthritic changes of the left hip. Inter pedicular screws are present L5-S1. IMPRESSION: Moderate osteoarthritis of the right hip and [id number] osteoarthritis of the left Dictated by: Sky Brownlee MD 07/18/2021 13:01 Sky Brownlee MD in [facility] 07/18/2021 13:01
--- NOTE | 2021-07-18 11:01 | XR_ITS ---
PROCEDURE: XR CHEST 2V CLINICAL HISTORY: COPD/ SMOKER/ preop, sx 08/02/21 COMPARISON: CR CXR1 CHEST-PORTABLE from 08/09/[address] CHEST WO/W CON from 01/17/2020 CR XR CHEST 2V from 02/12/2021 FINDINGS: Prior CABG. Normal heart size. There is increased density in the retrocardiac region on the left suggesting an area of infiltrate or developing pulmonary nodule. COPD changes are noted. Coronary artery calcifications and stents stent in the LAD. Ankylosis of the thoracic spine with mild degenerative disc disease. IMPRESSION: Ill-defined opacity in the retrocardiac region suggesting area of infiltrate or developing pneumonia or scar. Chest CT suggested for further evaluation COPD. Ankylosis of the thoracic spine Dictated by: Sky Brownlee MD 07/18/2021 13:03 Sky Brownlee MD in OV 07/18/2021 13:03
[2021-07-18 11:20] LABS: Appearance,Urine CLEAR (Clear); Bilirubin,Urine Negative (Negative); Blood, Urine Negative (Negative); Color,Urine YELLOW (Yellow); Glucose,Urine (UA) Negative (Negative); Ketones,Urine Negative (Negative); Leukocyte Esterase,Urine Negative (Negative); Nitrate,Urine Negative (Negative); Protein,Urine TRACE (Negative); Specific Gravity, Urine >= 1.030 (1.005-1.030); Urobilinogen,Urine 0.2 EU/dl (0.2)
[2021-07-18 11:22] LABS: Basophils # 0.1 K/mm3 (0-0.2); Basophils % 0.8 % (0.1-2.0); Eosinophils # 0.2 K/mm3 (0.0-0.4); Eosinophils % 1.9 % (0.1-12.0); Hematocrit 44.1 % (42.0-52.0); Hemoglobin 14.8 g/dL (14.1-18.0); Lymphocytes # 3.2 K/mm3 (0.7-4.5); Mean Corpuscular HGB Conc 33.6 g/dL (31.8-35.4); Mean Corpuscular Hemoglobin 29.9 pg (27.0-31.2); Mean Platelet Volume 9.3 fl (7.4-10.4); Monocytes # 0.5 K/mm3 (0.1-1.0); Monocytes % 5.7 % (1.7-9.3); Neutrophils % 55.6 % (37.0-80.0); Platelet Count 194 K/mm3 (142-424); Red Blood Count 4.96 M/mm3 (4.60-6.20); Red Cell Distribution Width 15.4 % (11.5-17.5)
[2021-07-18 11:29] LABS: Hemoglobin A1C 6.2 % (4.0-6.0)
[2021-07-18 12:21] LABS: Chloride 107 mmol/L (98-107); Potassium 5.2 mmoL/L (3.5-5.1); Sodium 142 mmol/L (136-145)
[2021-07-18 12:23] LABS: Alanine Aminotransferase 9 U/L (12-78); Aspartate Amino Transferase 23 U/L (17-59); Blood Urea Nitrogen 22 mg/dl (9-20); Estimated Glomerular Filt Rate 73 ml/min (>60); GFR (African American) 88 ML/MIN (>60)
[2021-07-18 12:24] LABS: Albumin Level 4.1 g/dl (3.5-5.0); Albumin/Globulin Ratio 1.5 (1.1-1.8); Alkaline Phosphatase 46 U/L (38-126); Anion Gap 10.2 mEq/L (5-15); Bilirubin,Total 0.4 mg/dl (0.2-1.3); Calcium 9.7 mg/dl (8.4-10.2); Carbon Dioxide 30 mmol/L (22.0-30.0); Globulin 2.7 g/dL (1.3-3.2); Glucose 117 mg/dl (74-100); Total Protein,Serum 6.8 g/dl (6.3-8.2)
== END ==
PROVIDERS: Visit Provider Orthopaedic Surgery
DX: Z01.818 Encounter for other preprocedural examination (principal); E11.9 Type 2 diabetes mellitus without complications; M25.551 Pain in right hip; Z79.84 Long term (current) use of oral hypoglycemic drugs
CPT/HCPCS: 36415; 71046; 73502; 80053; 81001; 83036; 85025

== ENCOUNTER → 2021-07-31 10:09 | Outpatient (CLI) | payer MEDICARE, SELFPAY | PROVIDERS: Visit Provider Orthopaedic Surgery | DX: Z01.812 Encounter for preprocedural laboratory examination (principal); Z11.52 Encounter for screening for COVID-19; M25.551 Pain in right hip | CPT/HCPCS: 36415; 86850; C9803; U0003; U0005 ==

== ENCOUNTER → 2021-08-07 11:12 | Outpatient (CLI) | payer MEDICARE, SELFPAY ==
--- NOTE | 2021-08-07 11:16 | IR_ITS ---
PROCEDURE: IR FLUORO GUIDED NEEDLE PLACE CLINICAL INDICATION: right hip injection COMPARISON: No exams were available for comparison FINDINGS: Fluoroscopy time: 38 seconds. Two images are submitted demonstrating a needle in place along the superior aspect of the right hip joint. Small amount contrast was injected confirming intra-articular location. Osteoarthritic changes are present involving the right hip. IMPRESSION: Status post right hip injection with fluoroscopic assistance Dictated by: Sky Brownlee MD 08/07/2021 18:02 Sky Brownlee MD in OV 08/07/2021 18:02
--- NOTE | 2021-08-07 18:41 | HMH.PROC ---
[facility] Procedure Note Procedure Note:: Date of Procedure: 08/07/2021 Pre-procedure diagnosis: Osteoarthritis, right hip Post-procedure diagnosis: Same Procedure: Intra-articular corticosteroid injection, right hip, under fluoroscopy Performed by: Juan Enrique MD Wader Boot Top Assembler/s: none Anesthesia: local; 10 cc 1% lidocaine w/o epinephrine Estimated Blood Loss: none Procedure Note: The patient presented to the radiology department and changed into a gown, exposing the right hip. Consent was reviewed and signed by both myself and the patient, all questions were answered. The patient was placed supine on the fluoroscopy table and the right hip exposed. The lateral aspect of hip and proximal thigh was prepped with multiple chlorhexidine sticks. Timeout was performed. Next, the fluoro machine was brought in over the patient?s hip and a picture taken to confirm adequate visualization of the joint. I donned a pair of sterile surgical gloves; the remainder of the procedure was performed in a sterile fashion. A 20G spinal needle was held over the hip to approximate my desired entry point on the skin. Once this was established, a 25G needle was used to infiltrate injection site and estimated needle track with 10 mL 1% lidocaine w/o epinephrine. Once the injection site was anesthetized, the spinal needle was advanced through the same puncture site and deeper towards the hip joint. Using fluoro, it was confirmed that the needle was advanced until it was at the level of the femoral neck. The stylus was removed from the spinal needle and 2cc of iodinated contrast solution was injected through the spinal needle. Fluoro was taken again, and the dye confirmed intra-capsular placement of the spinal needle, indicating a successful intraarticular injection. The syringe with contrast was removed, keeping the spinal needle in place, and 40 mg of Kenalog and 4 mL of 1% lidocaine was injected through the spinal needle into the hip joint. A final fluoro picture was taken, confirming successful intraarticular injection. The spinal needle was removed from the hip and a band-aid was placed over the injection site. Patient tolerated the procedure well and there were no immediate complications. Patient reported very good pain relief within a few minutes after the injection. Specimens: none Condition/Disposition: good / home Complications: none
== END ==
PROVIDERS: PCP Nurse Practitioner; Visit Provider Orthopaedic Surgery
DX: M25.551 Pain in right hip (principal)
CPT/HCPCS: 20610; 77002; Q9967

== ENCOUNTER 2021-09-09 12:39 | Emergency (ER) | payer MEDICARE, SELFPAY ==
[2021-09-09] VITALS (16 sets, daily range): BP systolic 125–170; BP diastolic 81–105; PULSE 80–100; RESP 16–18; TEMP 36.8–37; O2SAT 95–98; BMI 26.9
--- NOTE | 2021-09-09 12:36 | ECG_ITS ---
APPROVED REPORT Exam: Resting ECG HR:96 bpm ECG Measurements Heart Rate 96 AXES AZ 133 P 72 QRSd 94 QRS -59 QT 353 T 29 QTc 406 Conclusion SINUS RHYTHM WITH OCCASIONAL VENTRICULAR PREMATURE COMPLEXES LEFT AXIS DEVIATION [QRS AXIS < -30] NONSPECIFIC T-WAVE ABNORMALITY ABNORMAL ECG WARNING: DATA QUALITY MAY AFFECT INTERPRETATION UNCONFIRMED REPORT Electronically signed by : Alexandro Herrera MD 09/10/2021 18:35:43
--- NOTE | 2021-09-09 12:39 | PC.NURSE ---
EKG done and hooked up to monitor
--- NOTE | 2021-09-09 12:50 | XR_ITS ---
PROCEDURE INFORMATION: Exam: XR Chest Exam date and time: 09/09/2021 12:50 PM Age: 76 years old Clinical indication: Sternal or substernal pain; Prior surgery; Surgery date: 6+ months; Surgery type: Open heart surgery; Additional info: Chest pain TECHNIQUE: Imaging protocol: XR of the chest. Views: 2 views. COMPARISON: CR XR CHEST 2V 07/18/2021 11:13 AM FINDINGS: Lungs: Unremarkable. No consolidation. Pleural spaces: Unremarkable. No pleural effusion. No pneumothorax. Heart/Mediastinum: Unremarkable. No cardiomegaly. Bones/joints: Median sternotomy wires. IMPRESSION: No acute process.
--- NOTE | 2021-09-09 12:52 | HMH.EDGENADL ---
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 Additional instructions for CHEST PAIN: See your physician as soon as possible for further evaluation. Return immediately if worsening chest pain, vomiting, shortness of breath, fever, coughing of blood. Referrals: Ramirez Méndez MD [Primary Care Provider] - - Critical Care Critical Care Time: No Attestation: On , the high probability of a clinically significant, sudden or life threatening deterioration of the following system(s) required my full and direct attention, intervention and personal management. The time I documented below is in addition to time spent performing reported procedures but includes the following listed in this critical care notation. Medical Decision Making - Rodrigo Inquiry Pt receiving controlled substance: No Vital Signs: 09/09/21 12:45 09/09/21 13:00 09/09/21 13:15 Temperature 98.6 F Temperature Source Oral Pulse Rate 89 Pulse Rate [Left Radial] 100 H Respiratory Rate 18 Blood Pressure 145/90 H 145/90 H Blood Pressure [Right Arm] 125/91 H Blood Pressure Mean 102 Blood Pressure Mean [Right Arm] 102 Blood Pressure Source [Right Arm] Automatic Cuff Blood Pressure Position [Right Arm] Sitting 02 Sat by Pulse Oximetry 98 98 Oxygen Delivery Method Room Air 09/09/21 13:30 09/09/21 14:15 09/09/21 14:30 Temperature Temperature Source Pulse Rate 92 H Pulse Rate [Left Radial] Respiratory Rate Blood Pressure 139/83 137/81 161/82 H Blood Pressure [Right Arm] Blood Pressure Mean 111 108 Blood Pressure Mean [Right Arm] Blood Pressure Source [Right Arm] Blood Pressure Position [Right Arm] 02 Sat by Pulse Oximetry 98 Oxygen Delivery Method 09/09/21 14:43 09/09/21 15:15 09/09/21 15:30 Temperature Temperature Source Pulse Rate 94 H 94 H Pulse Rate [Left Radial] Respiratory Rate Blood Pressure 159/81 H 144/86 H 140/83 Blood Pressure [Right Arm] Blood Pressure Mean 107 Blood Pressure Mean [Right Arm] Blood Pressure Source [Right Arm] Blood Pressure Position [Right Arm] 02 Sat by Pulse Oximetry 97 97 Oxygen Delivery Method 09/09/21 16:00 09/09/21 16:15 09/09/21 16:19 Temperature Temperature Source Pulse Rate 82 Pulse Rate [Left Radial] Respiratory Rate Blood Pressure 158/105 H 150/89 H 150/89 H Blood Pressure [Right Arm] Blood Pressure Mean 122 126 Blood Pressure Mean [Right Arm] Blood Pressure Source [Right Arm] Blood Pressure Position [Right Arm] 02 Sat by Pulse Oximetry 98 Oxygen Delivery Method 09/09/21 16:31 Temperature Temperature Source Pulse Rate Pulse Rate [Left Radial] Respiratory Rate Blood Pressure 170/99 H Blood Pressure [Right Arm] Blood Pressure Mean 122 Blood Pressure Mean [Right Arm] Blood Pressure Source [Right Arm] Blood Pressure Position [Right Arm] 02 Sat by Pulse Oximetry Oxygen Delivery Method - Lab Data Lab Results 09/09/21 14:05: WBC 9.0, RBC 5.44, Hgb 16.7, Hct 50.0, MCV 92.0, MCH 30.7, MCHC 33.3, RDW 14.4, Plt Count 205, MPV 10.0, Neut % (Auto) 66.8, Lymph % (Auto) 25.1, [place] % (Auto) 5.4, Eos % (Auto) 0.9, Baso % (Auto) 1.7, Neut # (Auto) 6.0, Lymph # (Auto) 2.3, [place] # (Auto) 0.5, Eos # (Auto) 0.1, Baso # (Auto) 0.2 09/09/21 14:05: Sodium 138, Potassium 3.6, Chloride 104, Carbon Dioxide 24, Anion Gap 13.6, BUN 18, Creatinine 0.90, Estimated Creat Clear 66, Estimated GFR 82, Est GFR ( Amer) 100, Glucose 141 H, Calcium 9.8, Troponin I 0.02 09/09/21 14:05: D-Dimer 0.28 09/09/21 15:50: Troponin I 0.02 Result diagrams: 09/09/21 14:05 09/09/21 14:05 Orders (Tests/M
--- NOTE | 2021-09-09 12:53 | PC.NURSE ---
pt to radiology
--- NOTE | 2021-09-09 12:56 | PC.NURSE ---
pt returned from radiology
[2021-09-09 14:17] LABS: Basophils # 0.2 K/mm3 (0-0.2); Basophils % 1.7 % (0.1-2.0); Eosinophils # 0.1 K/mm3 (0.0-0.4); Eosinophils % 0.9 % (0.1-12.0); Hemoglobin 16.7 g/dL (14.1-18.0); Lymphocytes # 2.3 K/mm3 (0.7-4.5); Lymphocytes % 25.1 % (10-50); Mean Corpuscular HGB Conc 33.3 g/dL (31.8-35.4); Mean Corpuscular Hemoglobin 30.7 pg (27.0-31.2); Monocytes # 0.5 K/mm3 (0.1-1.0); Monocytes % 5.4 % (1.7-9.3); Neutrophils % 66.8 % (37.0-80.0); Platelet Count 205 K/mm3 (142-424); Red Blood Count 5.44 M/mm3 (4.60-6.20); Red Cell Distribution Width 14.4 % (11.5-17.5)
[2021-09-09 14:28] LABS: Anion Gap 13.6 mEq/L (5-15); Blood Urea Nitrogen 18 mg/dl (9-20); Calcium 9.8 mg/dl (8.4-10.2); Carbon Dioxide 24 mmol/L (22.0-30.0); Chloride 104 mmol/L (98-107); Creatinine Clearance Estimated 66 mL/min (50-200); Estimated Glomerular Filt Rate 82 ml/min (>60); GFR (African American) 100 ML/MIN (>60); Glucose 141 mg/dl (74-100); Potassium 3.6 mmoL/L (3.5-5.1); Sodium 138 mmol/L (136-145)
[2021-09-09 14:33] LABS: D-Dimer 0.28 ug/mL (0.0-0.5)
[2021-09-09 14:41] LABS: Troponin I 0.02 ng/ml (0.00-0.034)
--- NOTE | 2021-09-09 15:15 | PC.NURSE ---
message left for Dr Driscoll to call back with [facility]
--- NOTE | 2021-09-09 15:31 | PC.NURSE ---
element winding machine tender from [facility] called speaking with ED doctor at this time.
[2021-09-09 16:19] LABS: Troponin I 0.02 ng/ml (0.00-0.034)
== END 2021-09-09 17:40 | disposition home or self-care (01) ==
PROVIDERS: Emergency Provider Emergency Medicine; PCP Emergency Medicine
DX: R07.9 Chest pain, unspecified (principal)
CPT/HCPCS: 36415; 71046; 80048; 84484; 85025; 85378; 93005; 99283

== ENCOUNTER → 2021-11-22 08:27 | Outpatient (CLI) | payer MEDICARE, SELFPAY ==
--- NOTE | 2021-11-22 08:31 | XR_ITS ---
FINAL REPORT CLINICAL HISTORY: pain. Please call [phone] and speak with DR Enrique before signing off on report. Dr Enrique wants to speck to radiologist about images. FINDINGS: RIGHT HIP Two views of the right hip including an AP pelvis demonstrate no acute fracture or dislocation. There are moderate to severe degenerative changes of the right hip and mild degenerative changes of the left hip. There are postoperative changes at the lumbosacral junction. The visualized bony structures are well aligned. There are mild vascular calcifications. IMPRESSION: Moderate to severe degenerative change of the right hip. Mild degenerative change of the left hip. Reviewed, Interpreted and Dictated by Theo Lea III, MD Transcribed by Roselyn Clark Authenticated by Theo Lea III, MD on 11/22/2021 09:51:00 AM [facility]
== END ==
LOC: RAD 08:29
PROVIDERS: PCP Nurse Practitioner; Visit Provider Orthopaedic Surgery
DX: M16.11 Unilateral primary osteoarthritis, right hip (principal)
CPT/HCPCS: 73502

== ENCOUNTER → 2021-11-23 10:39 | Outpatient (CLI) | payer MEDICARE, SELFPAY ==
--- NOTE | 2021-11-23 10:55 | FL_ITS ---
FINAL REPORT CLINICAL HISTORY: Right hip injection, chronic right hip pain. COMPARISON: None. FINDINGS: Fluoroscopy was provided by the radiology department to the clinical service for right hip injection. A single image of the hip was performed showing contrast in the joint space. Please see the report of the performing physician for complete details. Fluoroscopy time: 44 seconds. IMPRESSION: Fluoroscopic guidance provided to the clinical service for hip injection. Please see the report of the performing provider. Reviewed, Interpreted and Dictated by Angel Patel MD Transcribed by Adrianne Lovett PA-C Authenticated by Angel Patel MD on 11/28/2021 11:06:17 AM [facility]
--- NOTE | 2021-11-23 14:03 | P.PCN_ITS ---
[facility] Procedure Note Procedure Note:: Pre-procedure diagnosis: Osteoarthritis, right hip Post-procedure diagnosis: Same Procedure: Intra-articular corticosteroid injection, right hip, under fluoroscopy Performed by: Juan Enrique MD Tunnel Form Placing Supervisor/s: none Anesthesia: local; 5 cc 1% lidocaine w/o epinephrine Estimated Blood Loss: none Procedure Note: The patient presented to the radiology department and changed into a gown, exposing the right hip. Consent was reviewed and signed by both me and the patient, all questions were answered. The patient was placed supine on the fluoroscopy table and the right hip exposed. The lateral aspect of hip and proximal thigh was prepped with multiple chlorhexidine sticks. Timeout was performed. Next, the fluoro machine was brought in over the patient?s hip and a picture taken to confirm adequate visualization of the joint. I donned a pair of sterile surgical gloves; the remainder of the procedure was performed in a sterile fashion. A 22-G spinal needle was held over the hip to approximate my desired entry point on the skin. Once this was established, a 25G needle was used to infiltrate injection site and estimated needle track with 5 mL 1% lidocaine w/o epinephrine. Once the injection site was anesthetized, a 22-gauge spinal needle was advanced through the skin and deeper towards the hip joint. Using fluoro, it was confirmed that the needle was advanced until the tip was intra-articular. The stylus was removed from the spinal needle and 1cc of iodinated contrast solution was injected through the spinal needle. Fluoro was taken again, and the dye confirmed intra-capsular placement of the spinal needle, indicating a successful intraarticular injection. The syringe with contrast was removed, keeping the spinal needle in place, and 40 mg of Kenalog and 4 mL of 1% lidocaine was injected through the spinal needle into the hip joint. A final fluoro picture was taken, confirming successful intraarticular injection. The spinal needle was removed from the hip and a band-aid was placed over the injection site. Patient tolerated the procedure well and there were no immediate complications. Patient reported very good pain relief within a few minutes after the injection. Specimens: none Condition/Disposition: good / home Complications: none
== END ==
LOC: RAD 10:39
PROVIDERS: PCP Nurse Practitioner; Visit Provider Orthopaedic Surgery
DX: M25.551 Pain in right hip (principal)
CPT/HCPCS: 20610; 77002; Q9967

== ENCOUNTER 2022-08-26 16:00 | Outpatient (RCR) | payer MEDICARE, SELFPAY | END 2022-08-30 07:06 | disposition home or self-care (01) | LOC: PT 16:00 | PROVIDERS: PCP Nurse Practitioner; Visit Provider Orthopaedic Surgery | DX: M70.61 Trochanteric bursitis, right hip (principal) | CPT/HCPCS: 97010; 97014; 97035; 97110; 97163; G0283 ==

== ENCOUNTER 2022-09-12 15:00 | Outpatient (RCR) | payer MEDICARE, SELFPAY | END 2022-10-17 15:15 | disposition home or self-care (01) | LOC: PT 15:00 | PROVIDERS: PCP Nurse Practitioner; Visit Provider Nurse Practitioner | DX: M54.50 Low back pain, unspecified (principal) | CPT/HCPCS: 97010; 97014; 97110; 97140; 97163; G0283 ==

== ENCOUNTER 2023-01-08 07:21 | Emergency (ER) | payer MEDICARE, SELFPAY ==
[2023-01-08] VITALS (9 sets, daily range): BP systolic 157–192; BP diastolic 81–99; PULSE 72–99; RESP 15–17; TEMP 36.6; O2SAT 97–100; BMI 27.4
--- NOTE | 2023-01-08 07:33 | ECG_ITS ---
APPROVED REPORT Exam: Resting ECG HR:86 bpm ECG Measurements Heart Rate 86 AXES MS 142 P 82 QRSd 104 QRS -22 QT 375 T 80 QTc 418 Conclusion SINUS RHYTHM POSSIBLE LEFT ATRIAL ENLARGEMENT [-0.1mV P-WAVE IN V1/V2] BORDERLINE LEFT AXIS DEVIATION [QRS AXIS < -20] INCOMPLETE RIGHT BUNDLE BRANCH BLOCK [90+ ms QRS DURATION, TERMINAL R IN V1/V2, 40+ ms S IN I/aVL/V4/V5/V6] NONSPECIFIC T-WAVE ABNORMALITY BORDERLINE ECG UNCONFIRMED REPORT Electronically signed by : Alexandro Herrera MD 01/08/2023 21:15:21
--- NOTE | 2023-01-08 08:04 | CT_ITS ---
FINAL REPORT TECHNIQUE: Postcontrast axial images through the abdomen and pelvis were performed. This study was performed with techniques to keep radiation doses as low as reasonably achievable, (ALARA). Individualized dose reduction techniques using automated exposure control or adjustment of mA and/or kV according to the patient's size were employed. CLINICAL HISTORY: abd pain COMPARISON: 02/12/2021 FINDINGS: Abdomen: There is scarring in the lung bases. The liver is normal in size and attenuation. The patient is status post cholecystectomy. There is moderate biliary ductal dilatation to the pancreatic head. There is a possible stone or debris in the distal common bile duct. There is mild pancreatic ductal dilatation. There is a 10 mm cyst or mass in the uncinate process, may represent a pseudocyst or cystic neoplasm. Multiple other small cysts are seen in the area of the pancreatic tail. There is a 24 mm cyst in the posterior left kidney. There are postoperative changes of the anterior abdominal wall and in the lower lumbar spine. The spleen is unremarkable. The adrenals are normal. The aorta is normal in caliber. No free fluid or adenopathy is identified. No findings for mechanical bowel obstruction are identified. Pelvis: The appendix is not identified. There is a small left inguinal hernia containing fat. The urinary bladder is unremarkable. No free fluid, free air, abscess or adenopathy is identified. IMPRESSION: Moderate biliary ductal dilatation with possible stone or debris in the common bile duct. Recommend MRCP. Pancreatic ductal dilatation with cyst or cystic neoplasm. Recommend MRCP or ERCP. Reviewed, Interpreted and Dictated by Theo Lea III, MD Transcribed by Laurie Wilcox Authenticated and [facility]
--- NOTE | 2023-01-08 08:11 | PC.NURSE ---
rad notified of Ct order
[2023-01-08 08:15] LABS: Basophils % 0.2 % (0.1-2.0); Eosinophils % 0.4 % (0.1-12.0); Hematocrit 46.4 % (42.0-52.0); Hemoglobin 15.2 g/dL (14.1-18.0); Lymphocytes # 1.1 K/mm3 (0.7-4.5); Lymphocytes % 10.4 % (10-50); Mean Corpuscular HGB Conc 32.7 g/dL (31.8-35.4); Mean Corpuscular Hemoglobin 30.9 pg (27.0-31.2); Mean Corpuscular Volume 94.4 fl (80-94); Mean Platelet Volume 8.6 fl (7.4-10.4); Monocytes # 0.7 K/mm3 (0.1-1.0); Monocytes % 6.3 % (1.7-9.3); Neutrophils # 8.8 K/mm3 (1.8-7.8); Neutrophils % 82.7 % (37.0-80.0); Platelet Count 219 K/mm3 (142-424); Red Blood Count 4.91 M/mm3 (4.60-6.20); Red Cell Distribution Width 14.2 % (11.5-17.5); White Blood Count 10.6 K/mm3 (4.8-10.8)
[2023-01-08 08:23] LABS: Albumin Level 4.3 g/dl (3.5-5.0); Albumin/Globulin Ratio 1.3 (1.1-1.8); Alkaline Phosphatase 173 U/L (38-126); Anion Gap 18.3 mEq/L (5-15); Bilirubin,Total 6.3 mg/dl (0.2-1.3); Blood Urea Nitrogen 17 mg/dl (9-20); Calcium 9.8 mg/dl (8.4-10.2); Carbon Dioxide 25 mmol/L (22.0-30.0); Chloride 97 mmol/L (98-107); Creatinine Clearance Estimated 67 mL/min (50-200); Estimated Glomerular Filt Rate 94 ml/min (>60); GFR (African American) 114 ML/MIN (>60); Globulin 3.2 g/dL (1.3-3.2); Glucose 172 mg/dl (74-100); Lipase 65 U/L (23-300); Potassium 4.3 mmoL/L (3.5-5.1); Total Protein,Serum 7.5 g/dl (6.3-8.2)
--- NOTE | 2023-01-08 08:26 | HMH.EDGENADL ---
Discharge Plan Disposition Patient Disposition: Xfer Short-Term Hosp Condition: Fair Chief Complaint: Abdominal Pain Prescriptions Prescriptions: No Action ondansetron HCl [Zofran] 4 mg tablet 4 mg PO Q8H 4 Days Qty: 12 0RF buspirone 10 MG tablet 10 mg PO BID glimepiride 2 MG tablet 1 mg PO DAILY losartan 50 MG tablet 50 mg PO DAILY carvedilol 25 MG tablet 25 mg PO BID albuterol sulfate 200 PUFFS HFA aerosol inhaler 1 - 2 puffs inhalation Q4-6H PRN (Reason: Shortness Of Breath Or Wheezing) pumpkin seed extract-soy germ 300 MG capsule 300 mg PO DAILY fluticasone propionate 16 GM spray,suspension 1 spray intranasal DAILY Referrals Follow up/Referrals: Shai Hayes MD [Primary Care Provider] - See instructions Clinical Impressions Clinical Impression: Choledocholithiasis Instructions Patient Instructions: DI for Acute Abdominal Pain Print Language Print Language: Nepalese Discharge ED Provider: Vu Benavidez General Adult HPI General Chief complaint: Abdominal Pain Stated complaint: Fever chills vomiting loss of weight, high BP Time Seen by Provider: 01/08/23 10:40 Mode of Arrival: Wheelchair Source of Information: Patient Limitations: No Limitations Description of Symptoms (Recalled from ER Triage Doc. by RN): pt to the ED with nausea, vomiting and epigastric pain x 3 days and pain while urinating x 5 days. pt reports a history of GERD and prostate issues. History of Present Illness HPI narrative: patient presents to the emergency department with generalized abdominal tenderness. He also describes some lower abdominal tenderness and has had some associated dysuria and frequency. States he believes it may be his prostate. Denies any fever or chills. Does describe some nausea and vomiting denies any diarrhea or constipation. Related Data Home Medications Medication Instructions Recorded Confirmed buspirone 10 mg tablet 10 mg PO BID mood 02/19/19 04/25/22 glimepiride 2 mg tablet 1 mg PO DAILY Diabetes 02/19/19 04/25/22 losartan 50 mg tablet 50 mg PO DAILY Hypertension 02/19/19 04/25/22 carvedilol 25 mg tablet 25 mg PO BID Hypertension 02/26/19 04/25/22 albuterol sulfate 90 mcg/actuation 1 - 2 puffs inhalation Q4-6H PRN 07/03/20 04/25/22 aerosol inhaler Shortness Of Breath Or Wheezing pumpkin seed extract-soy germ 300 300 mg PO DAILY . 07/03/20 04/25/22 mg capsule fluticasone propionate 50 1 spray intranasal DAILY Allergy 02/13/21 04/25/22 mcg/actuation nasal symptoms spray,suspension Previous Rx's Medication Instructions Recorded ondansetron HCl 4 mg tablet 4 mg PO Q8H 4 days #12 tabs 02/26/21 (Zofran) Allergies Allergy/AdvReac Type Severity Reaction Status Date / Time erythromycin base Allergy Unknown S-DIFF. Verified 04/25/22 10:00 [From ERYTHROCIN] BREATHING Penicillins [PENICILLINS] Allergy Unknown I-RASH Verified 04/25/22 10:00 chocolate flavor Allergy Unknown Verified 04/25/22 10:00 allergy reaction corn Allergy Unknown Verified 04/25/22 10:00 allergy reaction PFSH PFS Disclaimer: The information contained in this section may have been updated after the patient was seen, as this information can be updated by other users. Social History Smoking Status: Current every day smoker tobacco type: cigarettes packs per day: 1 second hand exposure: No alcohol intake: former substance use type: marijuana current occupational status: retired Travel in the last 8 weeks: None household members: spouse housing: house caffeine: Yes ROS Obtained: Yes All systems reviewed & no additional complaints except as documented Gastrointestinal Gastrointestingal: Reports abdominal pain, nausea and vomiting Genitourinary Male Genitourinary: Reports urinary hesitancy and Reports other ( Dysuria) Physical Exam General General
[2023-01-08 08:36] LABS: Aspartate Amino Transferase 875 U/L (17-59)
[2023-01-08 08:37] LABS: Alanine Aminotransferase 1242 U/L (12-78)
[2023-01-08 08:39] LABS: Sodium 136 mmol/L (136-145)
--- NOTE | 2023-01-08 09:00 | PC.NURSE ---
pt return from Ct via stretcher
--- NOTE | 2023-01-08 10:02 | PC.NURSE ---
contacting [facility]
--- NOTE | 2023-01-08 10:10 | PC.NURSE ---
requested radiology [facility] to [facility]
--- NOTE | 2023-01-08 10:11 | PC.NURSE ---
JESSICA DAUGHERTY spoke with Dr. Pinon at , declined transfer
--- NOTE | 2023-01-08 10:17 | PC.NURSE ---
contacted [facility], waiting home service consultant back from [facility] for Dr. Hargrove
--- NOTE | 2023-01-08 10:22 | PC.NURSE ---
JESSICA DAUGHERTY speaking with EVAN Hodges at [facility]
--- NOTE | 2023-01-08 10:23 | PC.NURSE ---
pt accepted to [facility] by Dr. Hargrove.
--- NOTE | 2023-01-08 10:26 | PC.NURSE ---
waiting on bed assignment
--- NOTE | 2023-01-08 11:06 | PC.NURSE ---
[facility] called with a bed assignment pt going to unit 3B number for report [phone] pt accepted per virginie cárdenas,licensed occupational therapist
--- NOTE | 2023-01-08 11:43 | PC.NURSE ---
notified [facility] of need of transport to [facility]
== END 2023-01-08 12:18 | disposition short-term general hospital (02) ==
PROVIDERS: Emergency Provider Emergency Medicine; PCP Internal Medicine Adolescent Medicine
DX: K80.50 Calculus of bile duct without cholangitis or cholecystitis without obstruction (principal); F17.210 Nicotine dependence, cigarettes, uncomplicated
CPT/HCPCS: 74177; 80053; 83690; 85025; 93005; 96361; 96374; 96375; 96376; 99285; J1335; J2405; Q9967

== ENCOUNTER → 2023-01-23 11:50 | Outpatient (CLI) | payer MEDICARE, SELFPAY ==
[2023-01-23 13:13] LABS: Alanine Aminotransferase 38 U/L (12-78); Albumin Level 3.6 g/dl (3.5-5.0); Albumin/Globulin Ratio 1.4 (1.1-1.8); Alkaline Phosphatase 49 U/L (38-126); Amylase 50 U/L (30-110); Anion Gap 12.3 mEq/L (5-15); Aspartate Amino Transferase 23 U/L (17-59); Bilirubin,Total 0.4 mg/dl (0.2-1.3); Blood Urea Nitrogen 24 mg/dl (9-20); Carbon Dioxide 27 mmol/L (22.0-30.0); Chloride 106 mmol/L (98-107); Estimated Glomerular Filt Rate 94 ml/min (>60); GFR (African American) 114 ML/MIN (>60); Globulin 2.5 g/dL (1.3-3.2); Glucose 115 mg/dl (74-100); Lipase 84 U/L (23-300); Potassium 4.3 mmoL/L (3.5-5.1); Sodium 141 mmol/L (136-145); Total Protein,Serum 6.1 g/dl (6.3-8.2)
[2023-01-24 09:19] LABS: CA 19-9 602 U/mL (0-35)
== END ==
PROVIDERS: PCP Internal Medicine Adolescent Medicine; Visit Provider Nurse Practitioner Family
DX: R97.8 Other abnormal tumor markers (principal); K83.09 Other cholangitis
CPT/HCPCS: 36415; 80053; 82150; 83690; 86316

== ENCOUNTER → 2023-01-24 12:01 | Outpatient (CLI) | payer MEDICARE, SELFPAY ==
[2023-01-30 15:20] LABS: Pancreatic Elastase, Fecal 92 (>200)
== END ==
PROVIDERS: PCP Nurse Practitioner; Visit Provider Nurse Practitioner Family
DX: K80.50 Calculus of bile duct without cholangitis or cholecystitis without obstruction (principal); K83.09 Other cholangitis; R94.5 Abnormal results of liver function studies; R11.0 Nausea; R10.84 Generalized abdominal pain; K86.9 Disease of pancreas, unspecified; K58.9 Irritable bowel syndrome, unspecified
CPT/HCPCS: 82656

== ENCOUNTER → 2023-01-27 07:42 | Outpatient (CLI) | payer MEDICARE, SELFPAY ==
--- NOTE | 2023-01-27 07:46 | US_ITS ---
FINAL REPORT CLINICAL HISTORY: ABN LFT,ABD JPAIN,PANCREATIC LESION,IBS COMPARISON: 01/08/2023 FINDINGS: Sonographic images of the right upper quadrant were obtained. The pancreas is partially obscured. There is a questionable mass of the head of the pancreas measuring 4 cm. Recommend MRI of the abdomen with and without contrast for further evaluation. There are multiple hepatic masses including 14 mm hypoechoic mass in the posterior right hepatic lobe. Hepatic metastasis not excluded. There is biliary ductal dilatation. Common duct measures 13 mm. Patient is status post cholecystectomy. Right kidney is unremarkable. IMPRESSION: Possible pancreatic head mass. Biliary ductal dilatation. Multiple hepatic masses. Hepatic metastasis not excluded. Recommend MRI of the abdomen with and without contrast. Reviewed, Interpreted and Dictated by Theo Lea III, MD Transcribed by Lilia Booth Authenticated and [facility]
== END ==
PROVIDERS: PCP Internal Medicine Adolescent Medicine; Visit Provider Nurse Practitioner Family
DX: R10.84 Generalized abdominal pain (principal); R11.0 Nausea; R94.5 Abnormal results of liver function studies; K80.50 Calculus of bile duct without cholangitis or cholecystitis without obstruction; K83.09 Other cholangitis; K86.9 Disease of pancreas, unspecified; K58.9 Irritable bowel syndrome, unspecified
CPT/HCPCS: 76705

== ENCOUNTER 2023-02-27 18:53 | Emergency (ER) | payer MEDICARE, SELFPAY ==
[2023-02-27] VITALS (10 sets, daily range): BP systolic 120–177; BP diastolic 59–111; PULSE 94–111; RESP 11–38; TEMP 37.1; O2SAT 96–100; BMI 25.0
--- NOTE | 2023-02-27 18:56 | ECG_ITS ---
APPROVED REPORT Exam: Resting ECG HR:112 bpm ECG Measurements Heart Rate 112 AXES MT 127 P 84 QRSd 104 QRS -35 QT 349 T 77 QTc 415 Conclusion SINUS TACHYCARDIA WITH OCCASIONAL SUPRAVENTRICULAR PREMATURE COMPLEXES LEFT AXIS DEVIATION [QRS AXIS < -30] INCOMPLETE RIGHT BUNDLE BRANCH BLOCK [90+ ms QRS DURATION, TERMINAL R IN V1/V2, 40+ ms S IN I/aVL/V4/V5/V6] ABNORMAL ECG UNCONFIRMED REPORT Electronically signed by : Alexandro Herrera MD 02/28/2023 17:16:15
--- NOTE | 2023-02-27 19:15 | XR_ITS ---
PROCEDURE INFORMATION: Exam: XR Chest Exam date and time: 02/27/2023 7:18 PM Age: 77 years old Clinical indication: Other: Chest pain; Additional info: Cp TECHNIQUE: Imaging protocol: Radiologic exam of the chest. Views: 1 view. COMPARISON: CR XR CHEST 2V 09/09/2021 12:46 PM FINDINGS: Lungs: Stable lingular scarring. No consolidation. Pleural spaces: Possible deep sulcus sign on the left versus artifact. Heart/Mediastinum: Stable heart size. Bones/joints: Stable bones. IMPRESSION: Possible left basilar pneumothorax. Recommend PA and lateral chest radiograph for follow-up. Differential diagnosis is artifact.
--- NOTE | 2023-02-27 19:17 | PC.NURSE ---
Report handed off to production shift supervisor
--- NOTE | 2023-02-27 20:03 | CT_ITS ---
PROCEDURE INFORMATION: Exam: CT Chest Without Contrast; Diagnostic Exam date and time: 02/27/2023 8:17 PM Age: 77 years old Clinical indication: Abnormal findings; Abnormal radiologic exam of lung or chest; Additional info: Left chest pain TECHNIQUE: Imaging protocol: Diagnostic computed tomography of the chest without contrast. Radiation optimization: All CT scans at this facility use at least one of these dose optimization techniques: automated exposure control; mA and/or kV adjustment per patient size (includes targeted exams where dose is matched to clinical indication); or iterative reconstruction. REPORTING DATA: Count of CT and Cardiac NM exams in prior 12 months: This patient has received [address] and 0 known cardiac nuclear medicine studies in the 12 months prior to the current study. COMPARISON: CT CHEST WO/W CON 01/17/2020 1:47 PM FINDINGS: Trachea: Minimal debris is seen in the trachea. Lungs: There is minimal left lower lobe subsegmental atelectasis or infiltrate present. Solid 5 mm triangular right apical nodule series 3, image 16 is unchanged. Solid 4 mm perifissural nodules in the lower lobe on series 3, image 50 are unchanged. Previously noted 4 mm left lower lobe pulmonary nodule is obscured. There is an unchanged 3 mm left upper lobe nodule on image 29. No new nodules. Pleural spaces: Unremarkable. No pneumothorax. No pleural effusion. Heart: Unremarkable. No cardiomegaly. No pericardial effusion. Coronary arteries: Marked coronary artery atherosclerosis is unchanged. Lymph nodes: Unremarkable. No enlarged lymph nodes. Vasculature: Normal for age. No aortic aneurysm. Liver: Multiple hypodense lesions in the liver largest in the posterior right lobe measuring 1.6 cm suspicious for metastasis. Gallbladder and bile ducts: Biliary stent in place with pneumobilia and previous cholecystectomy. Pancreas: There is masslike enlargement of the proximal pancreas. Kidneys and ureters: Left posterior midpole 1.7 cm simple renal cyst. Bones/joints: Previous sternotomy changes. Soft tissues: Unremarkable. IMPRESSION: 1. Minimal left lower lobe subsegmental atelectasis or infiltrate. Correlate for pulmonary infection. No pneumothorax is seen. The abnormality on the comparison x-ray is consistent with artifact. 2. Stable multiple subcentimeter bilateral solid pulmonary nodules as described. 3. Masslike enlargement of the proximal pancreas with biliary stent in place suspicious for pancreatic carcinoma. Multiple hypodense lesions in the liver largest in the posterior right hepatic lobe measuring 1.6 cm suspicious for metastasis. Recommend correlation with history/prior imaging. COMMENTS: Consistent with the [employer]'s Incidental Findings Committee white paper (J Am Eric Radiol 2018): Any incidental renal lesion less than 1 cm or classified as too small to characterize, or any incidental cystic renal lesion characterized as simple-appearing, is likely benign. No follow-up imaging is recommended for these lesions per consensus recommendations based on imaging criteria.
--- NOTE | 2023-02-27 20:13 | PC.NURSE ---
pt to rad via stretcher
--- NOTE | 2023-02-27 20:37 | PC.NURSE ---
Called lab regarding status of blood work, it was passed along in report that blood had been sent upon arrival of pt that was collected by EMS. I spoke with Brenda in lab who states there is not any pt blood in the lab. Charge nurse aware.
[2023-02-27 21:03] LABS: Basophils % 0.1 % (0.1-2.0); Eosinophils # 0.1 K/mm3 (0.0-0.4); Eosinophils % 0.7 % (0.1-12.0); Hemoglobin 12.7 g/dL (14.1-18.0); Lymphocytes # 2.1 K/mm3 (0.7-4.5); Mean Corpuscular HGB Conc 31.7 g/dL (31.8-35.4); Mean Corpuscular Hemoglobin 28.9 pg (27.0-31.2); Mean Corpuscular Volume 91.2 fl (80-94); Mean Platelet Volume 8.2 fl (7.4-10.4); Monocytes # 0.9 K/mm3 (0.1-1.0); Monocytes % 6.1 % (1.7-9.3); Platelet Count 232 K/mm3 (142-424); Red Blood Count 4.39 M/mm3 (4.60-6.20); Red Cell Distribution Width 13.6 % (11.5-17.5); White Blood Count 15.3 K/mm3 (4.8-10.8)
[2023-02-27 21:06] LABS: MANUAL DIFFERENTIAL MANUAL DIFFERENTIAL (MANUAL DIFF)
[2023-02-27 21:07] LABS: Chloride 104 mmol/L (98-107); Potassium 3.9 mmoL/L (3.5-5.1); Sodium 137 mmol/L (136-145)
[2023-02-27 21:10] LABS: Alanine Aminotransferase 19 U/L (12-78); Albumin Level 3.6 g/dl (3.5-5.0); Albumin/Globulin Ratio 1.2 (1.1-1.8); Alkaline Phosphatase 64 U/L (38-126); Anion Gap 10.9 mEq/L (5-15); Aspartate Amino Transferase 25 U/L (17-59); Bilirubin,Total 0.4 mg/dl (0.2-1.3); Blood Urea Nitrogen 22 mg/dl (9-20); Carbon Dioxide 26 mmol/L (22.0-30.0); Creatinine Clearance Estimated 60 mL/min (50-200); Estimated Glomerular Filt Rate 94 ml/min (>60); GFR (African American) 114 ML/MIN (>60); Globulin 3.1 g/dL (1.3-3.2); Total Protein,Serum 6.7 g/dl (6.3-8.2)
[2023-02-27 21:11] LABS: Calcium 9.2 mg/dl (8.4-10.2); Glucose 112 mg/dl (74-100)
[2023-02-27 21:27] LABS: Troponin I 0.01 ng/ml (0.00-0.034)
[2023-02-27 21:29] LABS: Lymphocytes % 15 % (10-50); Monocytes % 4 % (2-9); Neutrophils % 80 % (42-76); Total Cells Counted 100
[2023-02-27 21:30] LABS: Platelet Estimate Normal; RBC Morphology Normal
--- NOTE | 2023-02-27 21:56 | CT_ITS ---
PROCEDURE INFORMATION: Exam: CT Abdomen And Pelvis With Contrast Exam date and time: 02/27/2023 10:28 PM Age: 77 years old Clinical indication: Abdominal pain TECHNIQUE: Imaging protocol: Computed tomography of the abdomen and pelvis with contrast. Radiation optimization: All CT scans at this facility use at least one of these dose optimization techniques: automated exposure control; mA and/or kV adjustment per patient size (includes targeted exams where dose is matched to clinical indication); or iterative reconstruction. Contrast material: ISOVUE; Contrast volume: 70 ml; Contrast route: IV; REPORTING DATA: Count of CT and Cardiac NM exams in prior 12 months: This patient has received [address] and 0 known cardiac nuclear medicine studies in the 12 months prior to the current study. COMPARISON: CT ABDOMEN PELVIS W CON 01/08/2023 8:55 AM FINDINGS: Lungs: Minimal left lower lobe atelectasis or infiltrate again visualized. Liver: There are multiple hypodense lesions in the liver suspicious for metastatic disease. One of the largest in the inferior right hepatic lobe measures 1.7 cm on series 4, image 28. These are new since the comparison CT. Gallbladder and bile ducts: There is a biliary stent in place with pneumobilia. Stable post cholecystectomy changes. Pancreas: There is masslike enlargement of the head of the pancreas measuring 4.0 x 3.7 cm appearing larger than previous where it measured up to 3 cm maximum suspicious for malignancy. There is distal pancreatic ductal dilatation and atrophy present. There is stranding adjacent to the pancreas which may reflect superimposed acute pancreatitis. Spleen: Normal. No splenomegaly. Adrenal glands: Normal. No mass. Kidneys and ureters: Stable left renal cysts. Stomach and bowel: Unremarkable. No obstruction. No mucosal thickening. Appendix: No evidence of appendicitis. Intraperitoneal space: Unremarkable. No free air. No significant fluid collection. Vasculature: Stable atherosclerosis. Lymph nodes: There are small lymph nodes seen in the peripancreatic mesentery measuring up to 6 mm short axis. Lymph node in the deanne hepatis measures 1.3 cm on series 4, image 30 previously 9 mm, now larger. Urinary bladder: Unremarkable as visualized. Reproductive: Prostatomegaly with central TURP defect, unchanged. Bones/joints: Lower lumbar spinal fusion changes are again present. Soft tissues: Ventral abdominal wall postsurgical changes are stable. IMPRESSION: 1. Masslike enlargement of the head of the pancreas is redemonstrated appearing progressive since 01/08/2023, again suspicious for malignancy. There is infiltration of the adjacent mesentery which may reflect superimposed mild acute pancreatitis. Correlate clinically. A biliary stent has been placed since previous. 2. Multifocal hypodense masses are seen in the liver suspicious for metastatic disease, new since 01/08/2023. Attention on follow-up recommended. 3. Mildly enlarging upper abdominal adenopathy suspicious for metastasis.
--- NOTE | 2023-02-27 21:56 | CT_ITS ---
PROCEDURE INFORMATION: Exam: CTA Chest With Contrast Exam date and time: 02/27/2023 10:28 PM Age: 77 years old Clinical indication: Shortness of breath; Additional info: Cp/sob TECHNIQUE: Imaging protocol: Computed tomographic angiography of the chest with contrast. Exam focused on the arteries. 3D rendering (Not supervised by radiologist): MIP and/or 3D reconstructed images were created by the technologist. Radiation optimization: All CT scans at this facility use at least one of these dose optimization techniques: automated exposure control; mA and/or kV adjustment per patient size (includes targeted exams where dose is matched to clinical indication); or iterative reconstruction. Contrast material: ISOVUE; Contrast volume: 70 ml; Contrast route: INTRAVENOUS (IV); REPORTING DATA: Count of CT and Cardiac NM exams in prior 12 months: This patient has received [address] and 0 known cardiac nuclear medicine studies in the 12 months prior to the current study. COMPARISON: CT CHEST WO CON 02/27/2023 8:17 PM FINDINGS: Pulmonary arteries: No central or definite segmental PE is identified. Peripheral PE assessment is limited due to artifact. Aorta: Unremarkable for age. No aortic aneurysm. No aortic dissection. Lungs: Minimal left lower lobe subsegmental atelectasis or infiltrate is again present. Bilateral subcentimeter pulmonary nodules are unchanged with CT earlier today. Pleural spaces: Unremarkable. No pneumothorax. No pleural effusion. Heart: Unremarkable. No cardiomegaly. No pericardial effusion. Coronary arteries: Marked coronary artery atherosclerosis is unchanged. Lymph nodes: Unremarkable. No enlarged lymph nodes. Pancreas: There is pneumobilia with biliary stent in place and masslike enlargement of the pancreas again visualized. Bones/joints: Stable sternotomy changes. No acute fracture. Soft tissues: Unremarkable. IMPRESSION: 1. No pulmonary embolus identified. 2. Stable left lower lobe subsegmental atelectasis or infiltrate. Correlate for pulmonary infection.
--- NOTE | 2023-02-27 21:58 | [facility].EDCP ---
Discharge Plan Disposition Patient Disposition: Xfer Other Chief Complaint: Chest Pain Prescriptions Prescriptions: No Action ondansetron HCl [Zofran] 4 mg tablet 4 mg PO Q8H 4 Days Qty: 12 0RF buspirone 10 MG tablet 10 mg PO BID glimepiride 2 MG tablet 1 mg PO DAILY losartan 50 MG tablet 50 mg PO DAILY carvedilol 25 MG tablet 25 mg PO BID albuterol sulfate 200 PUFFS HFA aerosol inhaler 1 - 2 puffs inhalation Q4-6H PRN (Reason: Shortness Of Breath Or Wheezing) pumpkin seed extract-soy germ 300 MG capsule 300 mg PO DAILY fluticasone propionate 16 GM spray,suspension 1 spray intranasal DAILY Referrals Follow up/Referrals: Shai Hayes MD [Primary Care Provider] - See instructions Clinical Impressions Clinical Impression: Pancreatic mass, Lesion of liver Chest pain Qualifiers: Chest pain type: unspecified Qualified Code(s): R07.9 - Chest pain, unspecified Acute pancreatitis Qualifiers: Pancreatitis type: unspecified pancreatitis type Acute pancreatitis complication: unspecified Qualified Code(s): K85.90 - Acute pancreatitis without necrosis or infection, unspecified Discharge ED Provider: Pia Gonzalez Chest Pain HPI General Chief Complaint: Chest Pain Stated Complaint: CHEST PAIN Time Seen by Provider: 02/27/23 20:00 Mode of Arrival: EMS Source of Information: Patient Limitations: No Limitations Description of Symptoms (Recalled from ER Triage Doc. by RN): Presents to ED with complaints of mid-sternal/left sided chest pain that started approx. 2 hours ago when going to the bathroom. Took 1 nitro prior to EMS arrival with no relief. EMS administered 1 nitro and 324 of aspirin with some relief. PAtient further reports SOA soon after chest pain started. Reports hx of triple bypass and 4 stents as well as a stent placed in gallbladder duct yesterday. History of Present Illness HPI narrative: Patient is a 77-year-old male who is here secondary to left-sided chest pain. Patient is complaining substernal left-sided chest pain radiating down his left arm. Patient stated that EMS gave him 1 nitroglycerin and aspirin. Patient stated that it gave him some relief. Patient is complaining about some shortness of breath after the chest pain. He has a history of coronary artery disease bypass surgery three-vessel in 2001. And he has had 6 stents last stents was 2020. Does have a history of hypertension hyperlipidemia diabetes coronary artery disease and bypass surgery. He has no history of PE in the past. He also stated that he had a recent procedure where they did a endoscopy to to get a biopsy of his pancreas because there is a pancreatic mass they wanted to rule out cancer. He is also complaining about choledocholithiasis and has had to had cleaning out of his common bile duct and a stent placed there. He has had no fevers chills no nausea vomiting diarrhea. With the shortness of breath he has had no cough. MD complaint: chest pain indicative of cardiac Onset (ago): hour(s) Time: 06:00 Duration: constant Activity at onset: during rest Pain location: left chest Severity: mild Severity scale (1-10): 4 Quality: aching and dull Pain radiation: LUE Relieving factors: nitroglycerin Exacerbating factors: nothing Context: recent surgery (Patient had a endoscopy with pancreatic biopsy and it, and all procedures removal of gallstones and a stent placement) Associated symptoms: dyspnea Risk Factors for CAD: Hypertension, Hypercholesterolemia and Diabetes Treatments prior to or on arrival for Cardiac Chest Pain: aspirin and nitroglycerin Related Data Home Medications Medication Instructions Recorded Confirmed buspirone 10 mg tablet 10 mg PO BID mood 02/19/19 04/25/22 glimepiride 2 mg tablet 1 mg PO DAILY Diabetes 02/19/19 04/25/22 losartan 50 mg tablet 50 mg PO DAILY Hypertension 02/19/19 04/25/22 carvedilol 25 mg tablet 25 mg PO BID Hypertension 02/26/19 04/25/22
--- NOTE | 2023-02-27 22:22 | PC.NURSE ---
pt to rad
[2023-02-27 22:33] LABS: Procalcitonin 0.405 ng/mL (0.0-2.0)
--- NOTE | 2023-02-27 22:35 | PC.NURSE ---
pt returned from rad
[2023-02-27 22:45] LABS: Troponin I 0.04 ng/ml (0.00-0.034)
[2023-02-27 23:36] LABS: Lipase 215 U/L (23-300)
--- NOTE | 2023-02-27 23:45 | PC.NURSE ---
pt's truck chauffeur is dr Rivers. pt requested to be transfer to [facility] if possible
--- NOTE | 2023-02-27 23:46 | ECG_ITS ---
APPROVED REPORT Exam: Resting ECG HR:92 bpm ECG Measurements Heart Rate 92 AXES AZ 139 P 85 QRSd 101 QRS -43 QT 374 T 84 QTc 424 Conclusion SINUS RHYTHM WITH FREQUENT SUPRAVENTRICULAR PREMATURE COMPLEXES LEFT AXIS DEVIATION [QRS AXIS < -30] INCOMPLETE RIGHT BUNDLE BRANCH BLOCK [90+ ms QRS DURATION, TERMINAL R IN V1/V2, 40+ ms S IN I/aVL/V4/V5/V6] MODERATE VOLTAGE CRITERIA FOR LVH, CONSIDER NORMAL VARIANT [MEETS CRITERIA IN ONE OF: R(aVL), S(V1), R(V5), R(V5/V6)+S(V1)] POSSIBLE SEPTAL MYOCARDIAL INFARCTION , OF INDETERMINATE AGE [30 ms Q WAVE IN V1/V2] ABNORMAL ECG UNCONFIRMED REPORT Electronically signed by : Alexandro Herrera MD 02/28/2023 17:15:54
--- NOTE | 2023-02-27 23:55 | PC.NURSE ---
spoke with Devin from [facility] for possible transfer
[2023-02-28] VITALS (12 sets, daily range): BP systolic 150–192; BP diastolic 74–118; PULSE 91–112; RESP 12–18; TEMP 37.2; O2SAT 94–99
--- NOTE | 2023-02-28 00:05 | PC.NURSE ---
on with dr shin @ [facility] transfer
--- NOTE | 2023-02-28 00:09 | PC.NURSE ---
pt has been accepted. transfer center states will call back with bed assignment
--- NOTE | 2023-02-28 00:40 | PC.NURSE ---
[facility] called and reports no beds available at this time. They will call @ 0600 and give update on room assignment. updated pt & his spouse with this information
[2023-02-28 02:12] LABS: Troponin I < 0.01 ng/ml (0.00-0.034)
--- NOTE | 2023-02-28 02:17 | PC.NURSE ---
rounded on pt. pt resting quietly with call light within reach. at bedside
--- NOTE | 2023-02-28 05:14 | PC.NURSE ---
pt up to bedside to used urinal. pt medicated for pain per MAR
--- NOTE | 2023-02-28 05:17 | PC.NURSE ---
Devin from [facility] transfer center called for pt update. states they will call @ 6am for bed assignment
--- NOTE | 2023-02-28 06:01 | PC.NURSE ---
Devin from [facility] transfer called with room assignement 4I room 433
--- NOTE | 2023-02-28 06:15 | PC.NURSE ---
notified [facility] that pt ready for transport
--- NOTE | 2023-02-28 06:23 | PC.NURSE ---
Asst. Pt. with urinal.
== END 2023-02-28 06:53 | disposition other institution (70) ==
PROVIDERS: Family Medicine; Emergency Provider Emergency Medicine; PCP Internal Medicine Adolescent Medicine
DX: R07.9 Chest pain, unspecified (principal); R06.02 Shortness of breath; K85.90 Acute pancreatitis without necrosis or infection, unspecified; I25.10 Atherosclerotic heart disease of native coronary artery without angina pectoris; I10 Essential (primary) hypertension; E78.5 Hyperlipidemia, unspecified; E11.9 Type 2 diabetes mellitus without complications; F17.210 Nicotine dependence, cigarettes, uncomplicated; R00.0 Tachycardia, unspecified; I45.19 Other right bundle-branch block
CPT/HCPCS: 71045; 71250; 71275; 74177; 80053; 83690; 84145; 84484; 85007; 85025; 93005; 96374; 96375; 96376; 99285; J0131; J2405; Q9967

== ENCOUNTER 2023-04-10 23:37 | Emergency (ER) | payer MEDICARE, SELFPAY ==
[2023-04-10 23:37] VITALS: BP 178/84; PULSE 68; RESP 16; TEMP 36.3; O2SAT 99; BMI 24.1
--- NOTE | 2023-04-10 23:52 | [facility].EDGENADL ---
Discharge Plan Disposition Patient Disposition: Xfer Other Condition: Serious Prescriptions Prescriptions: No Action glimepiride 2 MG tablet 1 mg PO DAILY losartan 50 MG tablet 50 mg PO DAILY carvedilol 25 MG tablet 25 mg PO BID albuterol sulfate 200 PUFFS HFA aerosol inhaler 1 - 2 puffs inhalation Q4-6H PRN (Reason: Shortness Of Breath Or Wheezing) fluticasone propionate 16 GM spray,suspension 1 spray intranasal DAILY ondansetron HCl 4 mg tablet 4 mg PO Q8H Referrals Follow up/Referrals: Provider,Referral, MD [Primary Care Provider] - See instructions Clinical Impressions Clinical Impression: SBO (small bowel obstruction), Leukocytosis, Anemia, Pancreatic cancer metastasized to liver Stand Alone Forms Stand Alone Forms: Transfer Record - ED Instructions Patient Instructions: DI for Acute Abdominal Pain Discharge ED Provider: Shelton Lion General Adult HPI General Chief complaint: Abdominal Pain Stated complaint: abd pain Time Seen by Provider: 04/10/23 23:49 History of Present Illness HPI narrative: 77-year-old male history of coronary artery disease, pancreatic and liver cancer diagnosed earlier this year, recently started on chemotherapy presents with abdominal pain and distention as well as episode of shortness of breath. Patient received his second chemotherapy infusion yesterday and has been having worsening abdominal pain since that time. He had an episode of shortness of breath earlier today which prompted presentation. No reported fever at home. Patient has had decreased p.o. intake, has had diarrhea. Patient has had biopsy but not had any resection. Patient has had nausea and small amount of vomiting. Related Data Home Medications Medication Instructions Recorded Confirmed glimepiride 2 mg tablet 1 mg PO DAILY Diabetes 02/19/19 04/11/23 losartan 50 mg tablet 50 mg PO DAILY Hypertension 02/19/19 04/11/23 carvedilol 25 mg tablet 25 mg PO BID Hypertension 02/26/19 04/11/23 albuterol sulfate 90 mcg/actuation 1 - 2 puffs inhalation Q4-6H PRN 07/03/20 04/11/23 aerosol inhaler Shortness Of Breath Or Wheezing fluticasone propionate 50 1 spray intranasal DAILY Allergy 02/13/21 04/11/23 mcg/actuation nasal symptoms spray,suspension ondansetron HCl 4 mg tablet 4 mg PO Q8H Nausea 04/11/23 04/11/23 Allergies Allergy/AdvReac Type Severity Reaction Status Date / Time erythromycin base Allergy Unknown S-DIFF. Verified 04/25/22 10:00 [From ERYTHROCIN] BREATHING Penicillins [PENICILLINS] Allergy Unknown I-RASH Verified 04/25/22 10:00 chocolate flavor Allergy Unknown Verified 04/25/22 10:00 allergy reaction corn Allergy Unknown Verified 04/25/22 10:00 allergy reaction PFSH PFS Disclaimer: The information contained in this section may have been updated after the patient was seen, as this information can be updated by other users. Social History Smoking Status: Current every day smoker tobacco type: cigarettes packs per day: 1 second hand exposure: No alcohol intake: former substance use type: marijuana current occupational status: retired Travel in the last 8 weeks: None household members: spouse housing: house caffeine: Yes ROS Obtained: Yes All systems reviewed & no additional complaints except as documented Physical Exam General General appearance: alert and in distress Comment: Generally ill-appearing Head Head exam: atraumatic and normocephalic Eye Eye exam: Present normal appearance, PERRL and EOMI ENT ENT exam: Present normal oropharynx and normal external ear exam Neck Neck exam: Present normal inspection and full ROM Chest Chest inspection: Present normal inspection and symmetric chest wall rise; Absent tenderness Respiratory Respiratory exam: Present normal lung sounds bilaterally; Absent respiratory distress Cardiovascular C
[2023-04-10 23:58] LABS: POC Glucose,Bedside 264 (70-110)
[2023-04-11] VITALS (9 sets, daily range): BP systolic 92–194; BP diastolic 61–117; PULSE 63–108; RESP 18–20; TEMP 36.1; O2SAT 92–100
--- NOTE | 2023-04-11 00:07 | ECG_ITS ---
APPROVED REPORT Exam: Resting ECG HR:59 bpm ECG Measurements Heart Rate 59 AXES ID 145 P 75 QRSd 98 QRS 0 QT 438 T 76 QTc 438 Conclusion SINUS BRADYCARDIA WITH SINUS ARRHYTHMIA INCOMPLETE RIGHT BUNDLE BRANCH BLOCK [90+ ms QRS DURATION, TERMINAL R IN V1/V2, 40+ ms S IN I/aVL/V4/V5/V6] BORDERLINE ECG UNCONFIRMED REPORT Electronically signed by : Alexandro Herrera MD 04/11/2023 15:29:45
--- NOTE | 2023-04-11 00:13 | CT_ITS ---
PROCEDURE INFORMATION: Exam: CTA Chest With Contrast Exam date and time: 04/11/2023 12:47 AM Age: 77 years old Clinical indication: Shortness of breath; Additional info: Panc/liver cancer on chemo, worsening abd pain/sob TECHNIQUE: Imaging protocol: Computed tomographic angiography of the chest with contrast. Exam focused on the arteries. 3D rendering (Not supervised by radiologist): MIP and/or 3D reconstructed images were created by the technologist. Radiation optimization: All CT scans at this facility use at least one of these dose optimization techniques: automated exposure control; mA and/or kV adjustment per patient size (includes targeted exams where dose is matched to clinical indication); or iterative reconstruction. Contrast material: ISOVUE; Contrast volume: 75 ml; Contrast route: INTRAVENOUS (IV); REPORTING DATA: Count of CT and Cardiac NM exams in prior 12 months: This patient has received 4 known CTs and 0 known cardiac nuclear medicine studies in the 12 months prior to the current study. COMPARISON: CT ANGIO CHEST PE PROTOCOL 02/27/2023 10:28 PM FINDINGS: Pulmonary arteries: Normal. No pulmonary emboli. Aorta: There is atherosclerotic disease of the visualized aorta and its major branch vessels. Lungs: There is decreased scarring at the left lung base. Pleural spaces: Unremarkable. No pneumothorax. No pleural effusion. Heart: Unremarkable. No cardiomegaly. No pericardial effusion. Coronary arteries: There is moderate coronary atherosclerotic disease/calcification. Lymph nodes: Unremarkable. No enlarged lymph nodes. Gallbladder and bile ducts: There is a partially visualized common bile duct stent and pneumobilia. The patient is status post cholecystectomy. Bones/joints: The patient is status post median sternotomy. There is diffuse degenerative disease of the visualized osseous structures. Soft tissues: Unremarkable. IMPRESSION: No evidence for clinically relevant pulmonary arterial filling defect, dense parenchymal consolidation, pleural effusion, or pneumothorax. No acute intrathoracic anomaly.
--- NOTE | 2023-04-11 00:13 | CT_ITS ---
PROCEDURE INFORMATION: Exam: CT Abdomen And Pelvis With Contrast Exam date and time: 04/11/2023 12:47 AM Age: 77 years old Clinical indication: Abdominal pain; Additional info: Panc/liver cancer on chemo, worsening abd pain/sob TECHNIQUE: Imaging protocol: Computed tomography of the abdomen and pelvis with contrast. Radiation optimization: All CT scans at this facility use at least one of these dose optimization techniques: automated exposure control; mA and/or kV adjustment per patient size (includes targeted exams where dose is matched to clinical indication); or iterative reconstruction. Contrast material: ISOVUE; Contrast volume: 75 ml; Contrast route: IV; REPORTING DATA: Count of CT and Cardiac NM exams in prior 12 months: This patient has received 4 known CTs and 0 known cardiac nuclear medicine studies in the 12 months prior to the current study. COMPARISON: CT ABDOMEN PELVIS W CON 02/27/2023 10:28 PM FINDINGS: Liver: Interval progression of extensive hepatic metastatic disease with numerous lesions increasing in size and number from the examination 6 weeks prior. Gallbladder and bile ducts: There is a common bile duct stent in place. There is pneumobilia. The patient is status post cholecystectomy. Pancreas: Normal. No ductal dilation. Spleen: Normal. No splenomegaly. Adrenal glands: Normal. No mass. Kidneys and ureters: Normal. No hydronephrosis. Stomach and bowel: There is a small bowel obstruction with transition point in the right hemiabdomen (image 54 series 4). Appendix: No evidence of appendicitis. Intraperitoneal space: There is small volume ascites. Vasculature: There is atherosclerotic disease of the visualized aorta and its major branch vessels. Lymph nodes: Unremarkable. No enlarged lymph nodes. Urinary bladder: Unremarkable as visualized. Reproductive: There is a fat containing left inguinal herniaThe prostate is enlarged. Bones/joints: There is surgical hardware within the lumbar spine. There is diffuse degenerative disease of the visualized osseous structures. Soft tissues: Changes of ventral abdominal wall hernia repair. Other findings: Please see the dedicated interpretation of the thorax for findings in that region. IMPRESSION: 1. There is a small bowel obstruction with transition point in the right hemiabdomen (image 54 series 4). 2. Interval progression of hepatic metastatic disease from recent prior study.
[2023-04-11 00:23] LABS: Basophils % 0.1 % (0.1-2.0); Eosinophils % 0.3 % (0.1-12.0); Hematocrit 35.4 % (42.0-52.0); Hemoglobin 11.5 g/dL (14.1-18.0); Lymphocytes # 1.7 K/mm3 (0.7-4.5); Lymphocytes % 11.9 % (10-50); Mean Corpuscular HGB Conc 32.4 g/dL (31.8-35.4); Mean Corpuscular Hemoglobin 28.1 pg (27.0-31.2); Mean Corpuscular Volume 86.8 fl (80-94); Mean Platelet Volume 8.7 fl (7.4-10.4); Monocytes # 0.4 K/mm3 (0.1-1.0); Monocytes % 3.1 % (1.7-9.3); Neutrophils # 11.8 K/mm3 (1.8-7.8); Neutrophils % 84.6 % (37.0-80.0); Platelet Count 222 K/mm3 (142-424); Red Blood Count 4.08 M/mm3 (4.60-6.20); White Blood Count 13.9 K/mm3 (4.8-10.8)
[2023-04-11 00:24] LABS: Chloride 110 mmol/L (98-107); Potassium 4.3 mmoL/L (3.5-5.1); Sodium 145 mmol/L (136-145)
[2023-04-11 00:26] LABS: Alanine Aminotransferase 38 U/L (12-78); Alkaline Phosphatase 102 U/L (38-126); Aspartate Amino Transferase 32 U/L (17-59); Bilirubin,Total 0.3 mg/dl (0.2-1.3); Blood Urea Nitrogen 36 mg/dl (9-20); Creatinine Clearance Estimated 53 mL/min (50-200); Estimated Glomerular Filt Rate 65 ml/min (>60); GFR (African American) 79 ML/MIN (>60)
[2023-04-11 00:27] LABS: Albumin Level 3.6 g/dl (3.5-5.0); Albumin/Globulin Ratio 1.1 (1.1-1.8); Anion Gap 14.3 mEq/L (5-15); Calcium 10.1 mg/dl (8.4-10.2); Carbon Dioxide 25 mmol/L (22.0-30.0); Globulin 3.4 g/dL (1.3-3.2); Glucose 241 mg/dl (74-100); Lipase 20 U/L (23-300); Magnesium 2.1 mg/dl (1.6-2.3)
[2023-04-11 00:28] LABS: Lactic Acid 1.5 mmol/L (0.7-2.1)
[2023-04-11 00:43] LABS: Troponin I < 0.01 ng/ml (0.00-0.034)
--- NOTE | 2023-04-11 01:22 | PC.NURSE ---
Dr Grady paged for a consult for Dr Lion. CR
--- NOTE | 2023-04-11 01:29 | PC.NURSE ---
PC made to radiology requesting images be powershared with [employer] and a disc to be burnt
--- NOTE | 2023-04-11 01:30 | PC.NURSE ---
Called [facility] about a transfer. Will call back after speaking to their MDs. Candi Chan or Jem Peralta. CR
--- NOTE | 2023-04-11 01:45 | XR_ITS ---
PROCEDURE INFORMATION: Exam: XR Chest Exam date and time: 04/11/2023 1:45 AM Age: 77 years old Clinical indication: Device placement; Ng tube; Prior surgery; Surgery date: 6+ months; Surgery type: Open heart; Additional info: Ng tube placement TECHNIQUE: Imaging protocol: Radiologic exam of the chest. Views: 1 view. COMPARISON: CT ANGIO CHEST PE PROTOCOL 04/11/2023 12:47 AM FINDINGS: Tubes, catheters and devices: Enteric tube in place, tip and side port project over the stomach. Lungs: Unremarkable. No consolidation. Pleural spaces: Unremarkable. No pleural effusion. No pneumothorax. Heart/Mediastinum: Unremarkable. No cardiomegaly. Bones/joints: Partially visualized lumbar spine hardware. The patient is status post median sternotomy. Intraperitoneal space: Biliary stents and right upper quadrant surgical clips. Gastrointestinal tract: Distended air-filled small bowel loops. IMPRESSION: Radiographically appropriate position of enteric tube.
--- NOTE | 2023-04-11 02:07 | PC.NURSE ---
call from 'blue team' returned
--- NOTE | 2023-04-11 04:19 | PC.NURSE ---
pt on bs commode with assistance of his
--- NOTE | 2023-04-11 05:00 | PC.NURSE ---
Pt up to bedside, feeling increased weakness and increased distention in abdomen. Pt feels cold and clammy, rectal temp 96.[address] Lion informed.
--- NOTE | 2023-04-11 05:06 | PC.NURSE ---
md requests call placed to . waiting on return call
--- NOTE | 2023-04-11 05:07 | PC.NURSE ---
uk's returned call ivf's initiated NGT continues to [facility]
--- NOTE | 2023-04-11 05:13 | PC.NURSE ---
[facility] notified of need for patient to be transferred to ED
--- NOTE | 2023-04-11 05:25 | PC.NURSE ---
report called to Dontrell ROSAS at ER
[2023-04-11 05:36] LABS: POC Glucose,Bedside 316 (70-110)
--- NOTE | 2023-04-11 05:37 | PC.NURSE ---
call placed to [facility] to check on status of truck per charge nurse. Spoke with gareth Vo-p. advised they would be up soon.
[2023-04-11 06:36] LABS: Lactic Acid 2.7 mmol/L (0.7-2.1)
[2023-04-11 10:09] LABS: Reflex Lactic Add Lactic Reflex
== END 2023-04-11 06:20 | disposition other institution (70) ==
PROVIDERS: Emergency Provider Emergency Medicine
DX: K56.609 Unspecified intestinal obstruction, unspecified as to partial versus complete obstruction (principal); R10.9 Unspecified abdominal pain; R14.0 Abdominal distension (gaseous); D72.829 Elevated white blood cell count, unspecified; C25.9 Malignant neoplasm of pancreas, unspecified; C78.7 Secondary malignant neoplasm of liver and intrahepatic bile duct; D63.0 Anemia in neoplastic disease; I25.10 Atherosclerotic heart disease of native coronary artery without angina pectoris; E11.65 Type 2 diabetes mellitus with hyperglycemia; F17.210 Nicotine dependence, cigarettes, uncomplicated; Z92.21 Personal history of antineoplastic chemotherapy; Z79.84 Long term (current) use of oral hypoglycemic drugs; I11.9 Hypertensive heart disease without heart failure
CPT/HCPCS: 71045; 71275; 74177; 80053; 82962; 83605; 83690; 83735; 84484; 85025; 93005; 96361; 96374; 96375; 96376; 99285; J2405; Q9967